=== PATIENT | female | born 1990 | race Asian ===

== ENCOUNTER 2019-03-19 03:38 | Inpatient (IN) | payer MEDICAID ==
[~2019-03-19] VITALS: Ht 162.6 cm; Wt 47.6 kg
[2019-03-19 03:40] VITALS: BP 136/89
--- NOTE | 2019-03-19 03:40 | NUR ---
ED Nurse Note: Pt brought to ED from home, c/o sudden irretractabe vommiting and nausea since 299. Pt is A&Ox4, sweating profusely, shivering and vommiting.
[2019-03-19] MEDS ORDERED: PROZAC40 MG ORAL (03:43)
[2019-03-19] MEDS ORDERED: SEROQUEL25 MG ORAL (03:43)
[2019-03-19] MEDS ORDERED: DiphenhydrAMINE 50mg/ml Inj IVP ONE (03:45)
[2019-03-19] MEDS ORDERED: Metoclopramide 10mg/2ml Inj IVP ONE (03:45)
[2019-03-19] MEDS ORDERED: Morphine Sulfate 4mg/ml Inj (IV USE ONLY) IVP ONE (03:45)
--- NOTE | 2019-03-19 03:48 | Emergency Room Report ---
History of Present Illness General Chief Complaint: Abdominal Pain Source: Patient (Umair Mckeon MD) Present Illness HPI Patient presents with 30-45 minutes of vomiting and epigastric pain. She's had this once before many years ago and was told it was food poisoning. She relates that the workup that was done was negative at that time. She's not vomiting blood at this time. There is some diarrhea. The pain is epigastric and fairly severe. The patient is being treated for anxiety depression. She's had loose stools. No melena or blood. Pain is 10/10, burning and epigastric. Nausea is overwhelming and causes anxiety and tingling in hands and feet. No chest pain, dyspnea, sore throat, joint pain, headache, rashes. She doesn't believe she is . (Umair Mckeon MD) Allergies: Coded Allergies: No Known Allergies (Unverified , 03/19/19) Patient History Past Medical History: see triage record Social History: Denies: smoking - former, alcohol use, drug use Social History Narrative with friend Last Menstrual Period: 02-15-2019 Now: No Reviewed Nursing Documentation: PMH: Agreed; PSxH: Agreed (Umair Mckeon MD) Nursing Documentation-PMH History Of Psychiatric Problem: Yes - ANXIETY AND DEPRESSION (Umair Mckeon MD) Review of Systems All Other Systems: negative except mentioned in HPI (Umair Mckeon MD) Physical Exam Vital Signs Date Time Temp Pulse Resp B/P (MAP) Pulse Ox O2 Delivery O2 Flow Rate FiO2 03/19/19 03:37 98.1 86 18 98 Room Air Sp02 EP Interpretation: reviewed, normal General Appearance: alert, GCS 15, moderate distress Eyes: bilateral eye normal inspection, bilateral eye PERRL, bilateral eye EOMI ENT: moist mucus membranes - retching Respiratory: lungs clear, normal breath sounds Cardiovascular #1: tachycardia Cardiovascular #2: 2+ radial (R) Gastrointestinal: no guarding, no rebound, tenderness - epigastric, decreased bowel sounds Genitourinary: no CVA tenderness Neurologic: alert, oriented x3, grossly normal Psychiatric: anxious Skin: no rash, other - sallo (Umair Mckeon MD) Medical Decision Making Diagnostic Impression: Primary Impression: Vomiting Qualified Codes: R11.2 - Nausea with vomiting, unspecified Additional Impressions: Epigastric pain Intractable vomiting Qualified Codes: R11.2 - Nausea with vomiting, unspecified Leukocytosis Qualified Codes: D72.828 - Other elevated white blood cell count Gastroenteritis ER Course Patient suffering from acute onset of epigastric pain and uncontrollable vomiting. Differential includes gastritis, cyclic vomiting, electrolyte abnormality, gastritis, peptic ulcer disease, pancreatitis, / hyperemesis amongst others. Patient will be evaluated with EKG and labs. Based on her repeated exam and imaging studies may be necessary. The patient will be treated with IV hydration, Pepcid, Reglan, Benadryl and morphine. EKG normal. Labs with leukocytosis. Lipase normal. neg. Patient improved with resolution of pain. Still with nausea. Abd soft. Await labs. Repeat Zofran. Still nausea. Repeat zofran and ativan given. Still with vomiting. Abdomen is soft. No imaging studies indicated. Admit med - intractable vomiting. (Umair Mckeon MD) ER Course Patient was initially seen by Dr. Mckeon and signed out to me for final disposition. I have also evaluated the patient. I have examined the patient. Patient has a benign abdominal exam. Patient has had history of nausea vomiting abdominal discomfort and diarrhea for the last couple of days. Patient is uncertain exactly what she might have eaten which could have caused this. Patient was treated with fluids and nausea medication in the emergency department but unfortunately continues to have diarrhea. For this reason I feel that and the persistent vomiting and abdominal pain that I feel that patient requires admission. Case was discussed with Dr. Dugan. Patient will be admitted to [facility] for further treatment. Labs Test 03/19/19 03:55 03/19/19 07:30 White Blood Count 12.8 K/UL (4.8-10.8) Red Blood Count 5.13 M/UL (4.20-5.40) Hemoglobin 15.9 G/DL (12.0-16.0) Hematocrit 47.3 % (37.0-47.0) Mean Corpuscular Volume 92 FL (80-99) Mean Corpuscular Hemoglobin 31.1 PG (27.0-31.0) Mean Corpuscular Hemoglobin Concent 33.7 G/DL (32.0-36.0) Red Cell Distribution Width 12.5 % (11.6-14.8) Platelet Count 298 K/UL (150-450) Mean Platelet Volume 7.1 FL (6.5-10.1) Neutrophils (%) (Auto) 45.7 % (45.0-75.0) Lymphocytes (%) (Auto) 42.4 % (20.0-45.0) Monocytes (%) (Auto) 9.4 % (1.0-10.0) Eosinophils (%) (Auto) 1.4 % (0.0-3.0) Basophils (%) (Auto) 1.1 % (0.0-2.0) Prothrombin Time 9.4 SEC (9.30-11.50) Prothromb Time International Ratio 0.9 (0.9-1.1) Activated Partial Thromboplast Time 22 SEC (23-33) Sodium Level 142 MMOL/L (136-145) Potassium Level 3.8 MMOL/L (3.5-5.1) Chloride Level 103 MMOL/L (98-107) Carbon Dioxide Level 25 MMOL/L (21-32) Anion Gap 14 mmol/L (5-15) Blood Urea Nitrogen 14 mg/dL (7-18) Creatinine 1.1 MG/DL (0.55-1.30) Estimat Glomerular Filtration Rate 58.7 mL/min (>60) Glucose Level 109 MG/DL (74-106) Calcium Level 9.9 MG/DL (8.5-10.1) Total Bilirubin 0.2 MG/DL (0.2-1.0) Aspartate Amino Transf (AST/SGOT) 19 U/L (15-37) Alanine Aminotransferase (ALT/SGPT) 30 U/L (12-78) Alkaline Phosphatase 50 U/L (46-116) Total Protein 7.9 G/DL (6.4-8.2) Albumin 4.1 G/DL (3.4-5.0) Globulin 3.8 g/dL Albumin/Globulin Ratio 1.1 (1.0-2.7) Lipase 208 U/L (73-393) Human Chorionic Gonadotropin, Qual Negative (NEGATIVE) Urine Color Pale yellow Urine Appearance Slightly cloudy Urine pH 8 (4.5-8.0) Urine Specific [place] 1.010 (1.005-1.035) Urine Protein Negative (NEGATIVE) Urine Glucose (UA) Negative (NEGATIVE) Urine Ketones Negative (NEGATIVE) Urine Blood 2+ (NEGATIVE) Urine Nitrite Negative (NEGATIVE) Urine Bilirubin Negative (NEGATIVE) Urine Urobilinogen Normal MG/DL (0.0-1.0) Urine Leukocyte Esterase Negative (NEGATIVE) (Paul Dhaliwal MD) EKG Diagnostic Results Rate: normal Rhythm: NSR ST Segments: no acute changes (Umair Mckeon MD) Rhythm Strip Diag. Results EP Interpretation: yes Rhythm: NSR, no PVC's, no ectopy (Umair Mckeon MD) Last Vital Signs Date Time Temp Pulse Resp B/P (MAP) Pulse Ox O2 Delivery O2 Flow Rate FiO2 03/19/19 08:55 98.2 65 16 134/79 98 Room Air Status: improved (Umair Mckeon MD) Disposition: ADMITTED INPATIENT Condition: Serious Umair Mckeon MD March 19, 2019 03:48 Paul Dhaliwal MD March 19, 2019 08:04
[2019-03-19 04:25] LABS: BASOPHILS % (AUTO) 1.1 % (0.0-2.0); EOSINOPHILS % (AUTO) 1.4 % (0.0-3.0); HEMATOCRIT 47.3 % (37.0-47.0); HEMOGLOBIN 15.9 G/DL (12.0-16.0); LYMPHOCYTES % (AUTO) 42.4 % (20.0-45.0); MEAN CORPUSCULAR VOLUME 92 FL (80-99); MONOCYTES % (AUTO) 9.4 % (1.0-10.0); NEUTROPHILS % (AUTO) 45.7 % (45.0-75.0); PLATELET COUNT 298 K/UL (150-450); RED BLOOD COUNT 5.13 M/UL (4.20-5.40); RED CELL DISTRIBUTION WIDTH 12.5 % (11.6-14.8); WHITE BLOOD COUNT 12.8 K/UL (4.8-10.8)
[2019-03-19 04:34] LABS: ANION GAP 14 mmol/L (5-15); BLOOD UREA NITROGEN 14 mg/dL (7-18); CALCIUM 9.9 MG/DL (8.5-10.1); CARBON DIOXIDE 25 MMOL/L (21-32); CHLORIDE 103 MMOL/L (98-107); CREATININE 1.1 MG/DL (0.55-1.30); POTASSIUM 3.8 MMOL/L (3.5-5.1); SODIUM 142 MMOL/L (136-145)
[2019-03-19 04:39] LABS: ALANINE AMINOTRANSFERASE 30 U/L (12-78); ALBUMIN 4.1 G/DL (3.4-5.0); ALBUMIN/GLOBULIN RATIO 1.1 (1.0-2.7); ALKALINE PHOSPHATASE 50 U/L (46-116); ASPARTATE AMINO TRANSFERASE 19 U/L (15-37); BILIRUBIN,TOTAL 0.2 MG/DL (0.2-1.0)
[2019-03-19 04:42] LABS: INR 0.9 (0.9-1.1)
[2019-03-19] MEDS ORDERED: LORazepam Inj 2mg/ml 1ml IV ONE (05:15)
--- NOTE | 2019-03-19 06:12 | NUR ---
ED Nurse Note: Pt is sleeping, lessened sweating, shivering has resolved. Pt reports feeling less nauseous and overall better. VSS. will continue to monitor.
[2019-03-19 06:14] VITALS: BP 136/87
--- NOTE | 2019-03-19 07:30 | NUR ---
ED Nurse Note: Received pt in bed in stable condition. pt was assisted with bedpan and urinated x2 clear and yellow urine. no cardiac or pulmonary distress noted at this moment. pt aao x4 and fatigued but following comments.
--- NOTE | 2019-03-19 07:32 | NUR ---
HAND-OFF: Report given to LAWSON Martel.
[2019-03-19 07:54] LABS: APPEARANCE,URINE SLIGHTLY CLOUDY; BILIRUBIN, URINE NEGATIVE (NEGATIVE); COLOR,URINE PALE YELLOW; GLUCOSE, URINE (UA) NEGATIVE (NEGATIVE); KETONES,URINE NEGATIVE (NEGATIVE); LEUKOCYTE ESTERASE ,URINE NEGATIVE (NEGATIVE); NITRITE,URINE NEGATIVE (NEGATIVE); PH,URINE 8 (4.5-8.0); PROTEIN,URINE NEGATIVE (NEGATIVE); UROBILINOGEN,URINE NORMAL MG/DL (0.0-1.0)
[2019-03-19 08:17] VITALS: BP 128/78
--- NOTE | 2019-03-19 08:37 | NUR ---
ED Nurse Note: Called for report. no answer. will attempt again.
--- NOTE | 2019-03-19 08:42 | NUR ---
ED Nurse Note: Called for report again. no answer. will call again.
--- NOTE | 2019-03-19 08:46 | NUR ---
ED Nurse Note: Called for report. no answer.
--- NOTE | 2019-03-19 08:54 | NUR ---
ED Nurse Note: report given to LAWSON Swann.
--- NOTE | 2019-03-19 08:55 | NUR ---
ED Nurse Note: pt left unit in stable condition with 1 manufacturing technician.
[2019-03-19 09:10] VITALS: BP 144/67
--- NOTE | 2019-03-19 09:30 | NUR ---
NURSE NOTES: Patient arrived to unit at 0905. Patient is awake alert and oriented x4, patient vomited x2 and is dry heaving. Green emesis noted. Patient's sister is at the bedside. Patient reporting abdominal pain, but no other acute distress. Patient's gait is weak, states she feels weak. Fall precautions implemented. Patient oriented to room. Side rails upx3, bed low and locked, call light in reach. Will continue to monitor.
--- NOTE | 2019-03-19 10:15 | NUR ---
NURSE NOTES: Called the office of Dr. Contreras for admission orders. Per executive vice president and chief financial officer, director of environmental services doctor will be paged. Awaiting callback with orders.
--- NOTE | 2019-03-19 10:46 | NUR ---
CASE MANAGEMENT:REVIEW 28 YR OLD FEMALE BIBA FROM HOME CC; ABDOMINAL PAIN AND VOMITING SI: GASTRITIS. INTRACTABLE VOMITING 98.1 86 18 98% ON RA WBC+12.8 IS: IV REGLAN IV PEPCID IV MORPHINE 1L NS BOLUS IV BENADRYL IV ZOFRAN IV ATIVAN : to med/surg 3 east INTERQUAL CRITERIA MET
[2019-03-19] MEDS ORDERED: LORazepam Inj 2mg/ml 1ml IV PRN (11:30)
[2019-03-19] MEDS ORDERED: Morphine Sulfate 2mg/ml Inj(IV/IM USE ONLY) IVP PRN (11:30)
[2019-03-19] MEDS ORDERED: Morphine Sulfate 4mg/ml Inj (IV USE ONLY) IVP PRN (11:30)
--- NOTE | 2019-03-19 12:10 | Cardiology Report ---
APPROVED REPORT EKG Measurement Heart [id number] Normal sinus rhythm Normal ECG
--- NOTE | 2019-03-19 14:32 | History and Physical ---
History of Present Illness General Date patient seen: March 19, 2019 Time patient seen: 12:10 Reason for Hospitalization: Abdominal Pain Present Illness HPI 28 year old woman, history of depression who presented to the ED with sudden onset nausea vomiting and sharp/severe epigastric pain, nonradiating. She also reports nonbloody diarrhea. She's had this once before many years ago and was told it was food poisoning. She relates that the workup that was done was negative at that time. She denies any recent sick contacts. Nobody else in her family has similar symptoms. Travelled to [facility] one month ago. Family History: No GI disease Social History: No tobacco Allergies: Coded Allergies: No Known Allergies (Unverified , 03/19/19) Medication History Scheduled Fluoxetine Hcl* (Prozac*), 40 MG ORAL DAILY, (Reported) Quetiapine Fumarate* (Seroquel*), 25 MG ORAL DAILY, (Reported) Patient History Healthcare decision maker Resuscitation status Full Code Advanced Directive on File Review of Systems Constitutional: Denies: chills, fever Respiratory: Denies: cough Cardiovascular: Denies: chest pain Gastrointestinal: Reports: abdominal pain, diarrhea, nausea, vomiting Musculoskeletal: Denies: back pain Skin: Denies: rash Endocrine: Denies: excessive sweating Hematologic/Lymphatic: Denies: anemia Physical Exam General Appearance: no apparent distress, alert, agitated HEENT: atraumatic, anicteric Neck: normal alignment, supple Respiratory/Chest: lungs clear, normal breath sounds, no respiratory distress Cardiovascular/Chest: normal rate, regular rhythm, no gallop/murmur Abdomen: normal bowel sounds, non tender, soft, no organomegaly, no mass Extremities: non-tender, normal inspection 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, no motor/sensory deficits, alert, oriented x 3, responsive Last 24 Hour Vital Signs Date Time Temp Pulse Resp B/P (MAP) Pulse Ox O2 Delivery O2 Flow Rate FiO2 03/19/19 08:55 98.2 65 16 134/79 98 Room Air 03/19/19 08:17 77 16 Room Air 03/19/19 08:17 98.4 77 16 128/78 98 Room Air 03/19/19 06:14 98.6 68 16 136/87 98 Room Air 03/19/19 04:31 98.6 03/19/19 03:40 98.9 98 26 136/89 98 Room Air 03/19/19 03:40 68 24 Room Air 03/19/19 03:37 98.1 86 18 98 Room Air Laboratory Tests Test 03/19/19 03:55 03/19/19 07:30 White Blood Count 12.8 K/UL (4.8-10.8) H Red Blood Count 5.13 M/UL (4.20-5.40) Hemoglobin 15.9 G/DL (12.0-16.0) Hematocrit 47.3 % (37.0-47.0) H Mean Corpuscular Volume 92 FL (80-99) Mean Corpuscular Hemoglobin 31.1 PG (27.0-31.0) H Mean Corpuscular Hemoglobin Concent 33.7 G/DL (32.0-36.0) Red Cell Distribution Width 12.5 % (11.6-14.8) Platelet Count 298 K/UL (150-450) Mean Platelet Volume 7.1 FL (6.5-10.1) Neutrophils (%) (Auto) 45.7 % (45.0-75.0) Lymphocytes (%) (Auto) 42.4 % (20.0-45.0) Monocytes (%) (Auto) 9.4 % (1.0-10.0) Eosinophils (%) (Auto) 1.4 % (0.0-3.0) Basophils (%) (Auto) 1.1 % (0.0-2.0) Prothrombin Time 9.4 SEC (9.30-11.50) Prothromb Time International Ratio 0.9 (0.9-1.1) Activated Partial Thromboplast Time 22 SEC (23-33) L Sodium Level 142 MMOL/L (136-145) Potassium Level 3.8 MMOL/L (3.5-5.1) Chloride Level 103 MMOL/L (98-107) Carbon Dioxide Level 25 MMOL/L (21-32) Anion Gap 14 mmol/L (5-15) Blood Urea Nitrogen 14 mg/dL (7-18) Creatinine 1.1 MG/DL (0.55-1.30) Estimat Glomerular Filtration Rate 58.7 mL/min (>60) Glucose Level 109 MG/DL (74-106) H Calcium Level 9.9 MG/DL (8.5-10.1) Total Bilirubin 0.2 MG/DL (0.2-1.0) Aspartate Amino Transf (AST/SGOT) 19 U/L (15-37) Alanine Aminotransferase (ALT/SGPT) 30 U/L (12-78) Alkaline Phosphatase 50 U/L (46-116) Total Protein 7.9 G/DL (6.4-8.2) Albumin 4.1 G/DL (3.4-5.0) Globulin 3.8 g/dL Albumin/Globulin Ratio 1.1 (1.0-2.7) Lipase 208 U/L (73-393) Human Chorionic Gonadotropin, Qual Negative (NEGATIVE) Urine Color Pale yellow Urine Appearance Slightly cloudy Urine pH 8 (4.5-8.0) Urine Specific [place] 1.010 (1.005-1.035) Urine Protein Negative (NEGATIVE) Urine Glucose (UA) Negative (NEGATIVE) Urine Ketones Negative (NEGATIVE) Urine Blood 2+ (NEGATIVE) H Urine Nitrite Negative (NEGATIVE) Urine Bilirubin Negative (NEGATIVE) Urine Urobilinogen Normal MG/DL (0.0-1.0) Urine Leukocyte Esterase Negative (NEGATIVE) Urine RBC 2-4 /HPF (0 - 2) H Urine WBC 0 /HPF (0 - 2) Urine Squamous Epithelial Cells Occasional /LPF Urine Bacteria Few /HPF (NONE) Height (Feet): 5 Height (Inches): 4.00 Weight (Pounds): 105 Medications Current Medications Medications (Trade) Dose Ordered Sig/Memo Route PRN Reason Start Time Stop Time Status Last Admin Dose Admin Acetaminophen (Tylenol) 650 mg Q4H PRN ORAL Mild Pain (Pain Scale 1-3) 03/19/19 11:30 04/18/19 11:29 Dextrose (Dextrose 50%) 25 ml Q30M PRN IV Hypoglycemia 03/19/19 11:30 04/18/19 11:29 Dextrose (Dextrose 50%) 50 ml Q30M PRN IV Hypoglycemia 03/19/19 11:30 04/18/19 11:29 Diphenhydramine HCl (Benadryl) 25 mg Q6H PRN ORAL Itching/Pruritis 03/19/19 11:30 04/18/19 11:29 Famotidine (Pepcid I.v.) 20 mg Q12HR IVP 03/19/19 13:00 04/18/19 12:59 03/19/19 14:20 Heparin Sodium (Porcine) (Heparin 5000 units/ml) 5,000 units EVERY 12 HOURS SUBQ 03/19/19 21:00 04/18/19 20:59 Lorazepam (Ativan 2mg/ml 1ml) 0.5 mg Q4H PRN IV For Anxiety 03/19/19 11:30 03/26/19 11:29 Morphine Sulfate (Morphine Sulfate) 2 mg Q4H PRN IVP Moderate Pain (Pain Scale 4-6) 03/19/19 11:30 03/26/19 11:29 Morphine Sulfate (Morphine Sulfate) 4 mg Q4H PRN IVP Severe Pain (Pain Scale 7-10) 03/19/19 11:30 03/26/19 11:29 Prochlorperazine (Compazine) 10 mg Q6H PRN IVP Nausea & Vomiting 03/19/19 11:30 04/18/19 11:29 03/19/19 12:28 Sodium Chloride 1,000 ml @ 100 mls/hr Q10H IV 03/19/19 10:45 04/18/19 10:44 03/19/19 12:28 Assessment/Plan Assessment/Plan: #Intractable nausea and vomiting + diarrhea #Acute gastroenteritis -admit to medical service -Supportive care -IV fluids, Zofran, morphine -if persistent symptoms can check stool studies #History of depression -continue home psychiatric Dylon Wallace MD March 19, 2019 14:32
[2019-03-19 16:00] VITALS: BP 120/71
--- NOTE | 2019-03-19 19:30 | NUR ---
NURSE NOTES: Report taken from LAWSON Avalos. Patient is awake in bed, A&Ox4, family at bedside. No signs of distress on room air. Stated that she is feeling light-headed, RN explained that specific medications she is taking may have that side effect, continue to monitor. She has some emesis at bedside, comprised of mostly bile. Minor complaint of pain 11/30. Skin intact. IV site c/d/i and patent running NS @ 100mls/hr. Bed in lowest position, call light within reach.
[2019-03-19 20:00] VITALS: BP 109/61
[2019-03-19] MEDS: Heparin 5000 units/ml inj SUBQ SCH (20:44)
--- NOTE | 2019-03-19 21:37 | Consultation ---
History of Present Illness General Date patient seen: March 19, 2019 Chief Complaint: AMS Referring physician: Dr. Contreras Present Illness HPI Dany Ferguson is a 28 year old woman with a PMH of depression who presented to the ED with sudden onset nausea vomiting and sharp/severe epigastric pain, nonradiating, nonbloody diarrhea. She states that her symptoms feel reminiscent of previous self resolving episodes secondary to food poisoining. At the time that Ms. Ferguson was transferred from ED to unit for her hospital admission - she was lethargic and reported dizziness with some mild disorientation. She is now being evaluated by neurology for her recent symptoms. Allergies: Coded Allergies: No Known Allergies (Unverified , 03/19/19) Medication History Scheduled Fluoxetine Hcl* (Prozac*), 40 MG ORAL DAILY, (Reported) Quetiapine Fumarate* (Seroquel*), 25 MG ORAL DAILY, (Reported) Patient History History Provided By: Patient, Family Member, Medical Record Healthcare decision maker Resuscitation status Full Code Advanced Directive on File Social History Social History: (1) Recent history of foreign travel Review of Systems Constitutional: Reports: malaise, weakness; Denies: no symptoms, see HPI, chills, sweats, fever, other Eye: Denies: no symptoms, see HPI, eye pain, blurred vision, tearing, double vision, nose pain, nose congestion, acuity changes, discharge, other ENT: Denies: no symptoms, see HPI, ear pain, ear discharge, nose pain, nose congestion, throat pain, throat swelling, mouth pain, hearing loss, nasal discharge, other Respiratory: Denies: no symptoms, see HPI, cough, orthopnea, shortness of breath, stridor, wheezing, LYON, sputum, other Cardiovascular: Denies: no symptoms, see HPI, chest pain, edema, palpitations, syncope, PND, other Gastrointestinal: Reports: abdominal pain, nausea Genitourinary: Denies: no symptoms, see HPI, discharge, dysuria, frequency, hematuria, pain, retention, incontinence, urgency, vag bleed/dc, other Musculoskeletal: Denies: no symptoms, see HPI, back pain, gout, joint pain, joint swelling, muscle pain, muscle stiffness, other Skin: Denies: no symptoms, see HPI, rash, change in color, change in hair/nails , dryness, lesions, other Psychiatric: Denies: no symptoms, see HPI, prior hx, anxiety, depressed feelings, emotional problems, SI, HI, hallucinations, other Neurological: Denies: no symptoms, see HPI, headache, numbness, paresthesia, seizure, tingling, tremors, focal weakness, syncope, dizziness, other Endocrine: Denies: no symptoms, see HPI, excessive sweating, flushing, intolerance to temperature, increased thirst, increased urine, unexplained weight loss, other Hematologic/Lymphatic: Denies: no symptoms, see HPI, anemia, blood clots, easy bleeding, easy bruising, swollen glands, diathesis, other Physical Exam General Appearance: WD/WN, no apparent distress, alert Lines, tubes and drains: peripheral HEENT: normocephalic, atraumatic, anicteric, mucous membranes moist, PERRL, EOMI, pharynx normal, supple, no JVD Neck: normal alignment, supple, normal inspection Respiratory/Chest: no respiratory distress, no accessory muscle use Cardiovascular/Chest: normal peripheral pulses, normal rate, regular rhythm Extremities: normal range of motion, non-tender, normal inspection, no calf tenderness, normal capillary refill, non-pitting, no edema, no cyanosis Skin Exam: normal pigmentation, warm/dry 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, no motor/sensory deficits, alert, oriented x 3, responsive, normal mood/affect, no Babinski Musculoskeletal: normal muscle bulk, no effusion Last 24 Hour Vital Signs Date Time Temp Pulse Resp B/P (MAP) Pulse Ox O2 Delivery O2 Flow Rate FiO2 03/19/19 16:00 100.2 79 18 120/71 (87) 95 03/19/19 09:10 Room Air 03/19/19 09:10 97.8 63 18 144/67 (92) 98 03/19/19 08:55 98.2 65 16 134/79 98 Room Air 03/19/19 08:17 77 16 Room Air 03/19/19 08:17 98.4 77 16 128/78 98 Room Air 03/19/19 06:14 98.6 68 16 136/87 98 Room Air 03/19/19 04:31 98.6 03/19/19 03:40 98.9 98 26 136/89 98 Room Air 03/19/19 03:40 68 24 Room Air 03/19/19 03:37 98.1 86 18 98 Room Air Laboratory Tests Test 03/19/19 03:55 03/19/19 07:30 White Blood Count 12.8 K/UL (4.8-10.8) H Red Blood Count 5.13 M/UL (4.20-5.40) Hemoglobin 15.9 G/DL (12.0-16.0) Hematocrit 47.3 % (37.0-47.0) H Mean Corpuscular Volume 92 FL (80-99) Mean Corpuscular Hemoglobin 31.1 PG (27.0-31.0) H Mean Corpuscular Hemoglobin Concent 33.7 G/DL (32.0-36.0) Red Cell Distribution Width 12.5 % (11.6-14.8) Platelet Count 298 K/UL (150-450) Mean Platelet Volume 7.1 FL (6.5-10.1) Neutrophils (%) (Auto) 45.7 % (45.0-75.0) Lymphocytes (%) (Auto) 42.4 % (20.0-45.0) Monocytes (%) (Auto) 9.4 % (1.0-10.0) Eosinophils (%) (Auto) 1.4 % (0.0-3.0) Basophils (%) (Auto) 1.1 % (0.0-2.0) Prothrombin Time 9.4 SEC (9.30-11.50) Prothromb Time International Ratio 0.9 (0.9-1.1) Activated Partial Thromboplast Time 22 SEC (23-33) L Sodium Level 142 MMOL/L (136-145) Potassium Level 3.8 MMOL/L (3.5-5.1) Chloride Level 103 MMOL/L (98-107) Carbon Dioxide Level 25 MMOL/L (21-32) Anion Gap 14 mmol/L (5-15) Blood Urea Nitrogen 14 mg/dL (7-18) Creatinine 1.1 MG/DL (0.55-1.30) Estimat Glomerular Filtration Rate 58.7 mL/min (>60) Glucose Level 109 MG/DL (74-106) H Calcium Level 9.9 MG/DL (8.5-10.1) Total Bilirubin 0.2 MG/DL (0.2-1.0) Aspartate Amino Transf (AST/SGOT) 19 U/L (15-37) Alanine Aminotransferase (ALT/SGPT) 30 U/L (12-78) Alkaline Phosphatase 50 U/L (46-116) Total Protein 7.9 G/DL (6.4-8.2) Albumin 4.1 G/DL (3.4-5.0) Globulin 3.8 g/dL Albumin/Globulin Ratio 1.1 (1.0-2.7) Lipase 208 U/L (73-393) Human Chorionic Gonadotropin, Qual Negative (NEGATIVE) Urine Color Pale yellow Urine Appearance Slightly cloudy Urine pH 8 (4.5-8.0) Urine Specific [place] 1.010 (1.005-1.035) Urine Protein Negative (NEGATIVE) Urine Glucose (UA) Negative (NEGATIVE) Urine Ketones Negative (NEGATIVE) Urine Blood 2+ (NEGATIVE) H Urine Nitrite Negative (NEGATIVE) Urine Bilirubin Negative (NEGATIVE) Urine Urobilinogen Normal MG/DL (0.0-1.0) Urine Leukocyte Esterase Negative (NEGATIVE) Urine RBC 2-4 /HPF (0 - 2) H Urine WBC 0 /HPF (0 - 2) Urine Squamous Epithelial Cells Occasional /LPF Urine Bacteria Few /HPF (NONE) Height (Feet): 5 Height (Inches): 4.00 Weight (Pounds): 105 Medications Current Medications Medications (Trade) Dose Ordered Sig/Memo Route PRN Reason Start Time Stop Time Status Last Admin Dose Admin Acetaminophen (Tylenol) 650 mg Q4H PRN ORAL Mild Pain (Pain Scale 1-3) 03/19/19 11:30 04/18/19 11:29 Dextrose (Dextrose 50%) 25 ml Q30M PRN IV Hypoglycemia 03/19/19 11:30 04/18/19 11:29 Dextrose (Dextrose 50%) 50 ml Q30M PRN IV Hypoglycemia 03/19/19 11:30 04/18/19 11:29 Diphenhydramine HCl (Benadryl) 25 mg Q6H PRN ORAL Itching/Pruritis 03/19/19 11:30 04/18/19 11:29 Famotidine (Pepcid I.v.) 20 mg Q12HR IVP 03/19/19 13:00 04/18/19 12:59 03/19/19 20:42 Heparin Sodium (Porcine) (Heparin 5000 units/ml) 5,000 units EVERY 12 HOURS SUBQ 03/19/19 21:00 04/18/19 20:59 03/19/19 20:44 Lorazepam (Ativan 2mg/ml 1ml) 0.5 mg Q4H PRN IV For Anxiety 03/19/19 11:30 03/26/19 11:29 Morphine Sulfate (Morphine Sulfate) 2 mg Q4H PRN IVP Moderate Pain (Pain Scale 4-6) 03/19/19 11:30 03/26/19 11:29 Morphine Sulfate (Morphine Sulfate) 4 mg Q4H PRN IVP Severe Pain (Pain Scale 7-10) 03/19/19 11:30 03/26/19 11:29 Prochlorperazine (Compazine) 10 mg Q6H PRN IVP Nausea & Vomiting 03/19/19 11:30 04/18/19 11:29 03/19/19 12:28 Sodium Chloride 1,000 ml @ 100 mls/hr Q10H IV 03/19/19 10:45 04/18/19 10:44 03/19/19 12:28 Assessment/Plan Problem List: (1) Acute metabolic encephalopathy Assessment & Plan: Alert and oriented with resolving feeling of disorientation and dizziness. ICD Codes: G93.41 - Metabolic encephalopathy SNOMED: 20524487, 260325027 (2) Dizziness Assessment & Plan: Resolved - no signs of nystagmus, ataxia ICD Codes: R42 - Dizziness and giddiness SNOMED: 107617470, 999888832 (3) Gastritis ICD Codes: K29.70 - Gastritis, unspecified, without bleeding SNOMED: 4591487 Qualifiers: Qualified Codes: K29.00 - Acute gastritis without bleeding (4) Recent history of foreign travel ICD Codes: Z78.9 - Other specified health status SNOMED: 828457190 Status: stable Assessment/Plan: May use zofran for ongoing Nausea General Neuro obs recommended No indication for neuro imaging at this time. Continue IVH Check orthostatic BP prior to ambulation Clear for discharge from a neurological perspective. This visit was conducted with supervision of Jadon Lund MD. Mylene Daley N.P. March 19, 2019 21:37
[2019-03-20] VITALS: BP 105/64
[2019-03-20 04:00] VITALS: BP 102/67
[2019-03-20 06:26] LABS: BASOPHILS % (AUTO) 0.5 % (0.0-2.0); EOSINOPHILS % (AUTO) 0.1 % (0.0-3.0); HEMATOCRIT 38.7 % (37.0-47.0); MEAN CORPUSCULAR VOLUME 93 FL (80-99); MONOCYTES % (AUTO) 10.4 % (1.0-10.0); NEUTROPHILS % (AUTO) 75.1 % (45.0-75.0); PLATELET COUNT 197 K/UL (150-450); RED BLOOD COUNT 4.18 M/UL (4.20-5.40); RED CELL DISTRIBUTION WIDTH 12.3 % (11.6-14.8); WHITE BLOOD COUNT 13.8 K/UL (4.8-10.8)
[2019-03-20 06:47] LABS: ANION GAP 11 mmol/L (5-15); BLOOD UREA NITROGEN 11 mg/dL (7-18); CALCIUM 8.7 MG/DL (8.5-10.1); CARBON DIOXIDE 24 MMOL/L (21-32); CHLORIDE 109 MMOL/L (98-107); CREATININE 0.8 MG/DL (0.55-1.30); SODIUM 144 MMOL/L (136-145)
--- NOTE | 2019-03-20 07:30 | NUR ---
HAND-OFF: Report given to LAWSON Avalos. Patient asleep in bed, VS stable.
--- NOTE | 2019-03-20 07:30 | NUR ---
NURSE NOTES: Received report from Alexis PATHAK. Patient is asleep during rounds, no acute distress noted, RR even and unlabored. IVF running per order. Patient's mother is at the bedside. Side rails upx3, bed low and locked, call light in reach. Will continue to monitor.
[2019-03-20 08:00] VITALS: BP 103/64
[2019-03-20] MEDS: Heparin 5000 units/ml inj SUBQ SCH (09:05)
--- NOTE | 2019-03-20 09:15 | NUR ---
NURSE NOTES: Called the office of Dr. Contreras. Left message regarding potassium 3.0. Awaiting callback from retail sales consultant MD with further orders.
--- NOTE | 2019-03-20 09:26 | NUR ---
NURSE NOTES: Received callback from Dr. Dugan. Orders for potassium received and entered, MD also ordered to advance patient to clear liquid diet. Will carry out.
--- NOTE | 2019-03-20 11:29 | NUR ---
RD ASSESSMENT & RECOMMENDATIONS SEE CARE ACTIVITY FOR COMPLETE ASSESSMENT DAILY ESTIMATED NEEDS: Needs based on Underweight 47.7kg 27-32 kcals/kg 8207-3848 total kcals 1-1.2 g protein/kg 48-57 g total protein 25-30 mL/kg 0513-1926 total fluid mLs NUTRITION DIAGNOSIS: Underweight r/t stress, lifestyle factors as evidenced by BMI underweight per guidelines, pt is 88% of [place] Body Weight, pt owes wt loss to work and stress, now w/ 24% favorable wt gain. CURRENT DIET: Was NPO-> now CLD PO DIET RECOMMENDATIONS: CLD as per MD + Ensure Clear w/ meals ADDITIONAL RECOMMENDATIONS: 1) Pt on bed WITHOUT scale, obtain a standing weight as able 2) Add Ensure Clear TID w/ CLD 3) Monitor lytes daily, replete as needed (low K 3.0)
[2019-03-20 12:00] VITALS: BP 116/82
--- NOTE | 2019-03-20 12:15 | Discharge Summary ---
Discharge Summary Hospital Course Date of Admission March 19, 2019 at 07:20 Date of Discharge 03/20/19 Admitting Diagnosis Acute gastroenteritis Reason for Hospitalization: Acute gastroenteritis SILVESTRE Ferguson is a 28 year old female who was admitted on March 19, 2019 at 07:20 for Gastritis Consultations None Procedures None Hospital Course Patient admitted to the medical service with intractable nausea, vomiting, diarrhea secondary to acute viral gastroenteritis. Treated supportively with IV fluids, anti-emetics and Pepcid with improvement in symptoms. She is tolerating diet and will be discharged home in stable condition She will need to follow up with her PCP routinely. Discharge Medications Continued Medications: Fluoxetine Hcl* (Prozac*) 40 Mg Capsule 40 MG ORAL DAILY, CAP Quetiapine Fumarate* (Seroquel*) 25 Mg Tablet 25 MG ORAL DAILY, TAB Discharge Condition Upon Discharge: stable Discharge Disposition Patient was discharged to Home Discharge Diagnoses: (1) Gastroenteritis Dylon Hughes MD March 20, 2019 12:15
--- NOTE | 2019-03-20 14:06 | NUR ---
NURSE NOTES: Patient reported she has had 5 episodes of diarrhea since this morning. Informed Dr. Dugan. stated ok for patient to be discharged as long as she is tolerating diet well, no need to collect for C. Diff. Patient is tolerating diet well, ate 100% of lunch and reports no nausea or vomiting.
--- NOTE | 2019-03-20 15:25 | NUR ---
NURSE NOTES: Patient discharged. No acute distress on discharge. Patient provided with discharge education, discharge handouts reviewed with patient and patient reports understanding of provided education. IV removed intact. Patient tolerated food well, no episodes of nausea or vomiting today. Patient escorted off unit by RN with patient's sister to private vehicle in stable condition.
== END 2019-03-20 15:21 | disposition home or self-care (01) | DRG 249 ==
LOC: EDBD 03:38 → EMR 04:58 → 3E 07:20 → EDBEDREQ 08:32
DX: A08.39 Other viral enteritis (principal); G93.41 Metabolic encephalopathy; D72.829 Elevated white blood cell count, unspecified
CPT/HCPCS: 36415; 80048; 80053; 81003; 83690; 84703; 85025; 85610; 85730; 93005; 96361; 96372; 96374; 96375; 96376; 99285; J2405; J2765; J8499

== ENCOUNTER 2019-05-17 02:46 | Inpatient (IN) | payer MEDICAID ==
[~2019-05-17] VITALS: Ht 167.6 cm; Wt 59.0 kg
[2019-05-17] VITALS (8 sets, daily range): BP systolic 112–148; BP diastolic 60–100
[~2019-05-17 02:46] MED LIST: PROZAC40 MG ORAL; SEROQUEL25 MG ORAL
--- NOTE | 2019-05-17 02:54 | Emergency Room Report ---
History of Present Illness General Chief Complaint: vomiting Source: Patient, Medical Record (Fabien Shearer MD) Present Illness HPI 28-year-old female with history of anxiety. She presents with chief complaint of abdominal pain with severe nausea and vomiting. No diarrhea. Onset was about 3 hours ago after she finished eating Mohr's. She has similar symptoms a couple months ago and was admitted here for intractable vomiting. She has previous problem with this couple years ago and was also admitted. Work-up was unremarkable. She does smoke marijuana. Pain is sharp and crampy. Severe nausea. Vomiting is now just retching. Nonbloody nonbilious before. No diarrhea. No fever. (Fabien Shearer MD) Allergies: Coded Allergies: No Known Allergies (Unverified , 03/19/19) Patient History Past Medical History: see triage record, old chart reviewed, psych hx Past Surgical History: none Pertinent Family History: none Social History: Reports: drug use - Marijuana; Denies: smoking Now: No Immunizations: other Reviewed Nursing Documentation: PMH: Agreed; PSxH: Agreed (Fabien Shearer MD) Nursing Documentation-PMH Hx Cardiac Problems: No Hx Cancer: No Hx Gastrointestinal Problems: Yes Hx Neurological Problems: No (Fabien Shearer MD) Review of Systems Eye: Denies: eye pain, blurred vision ENT: Denies: ear pain, nose congestion, throat swelling Respiratory: Denies: cough, shortness of breath Cardiovascular: Denies: chest pain, palpitations Gastrointestinal: Reports: abdominal pain, nausea, vomiting; Denies: diarrhea Musculoskeletal: Denies: back pain, joint pain Skin: Denies: rash Neurological: Denies: headache, numbness Endocrine: Denies: increased thirst, increased urine Hematologic/Lymphatic: Denies: easy bruising All Other Systems: negative except mentioned in HPI (Fabien Shearer MD) Physical Exam Vitals unremarkable Sp02 EP Interpretation: reviewed, normal General Appearance: well appearing, no apparent distress, alert Head: normocephalic, atraumatic Eyes: bilateral eye PERRL, bilateral eye EOMI ENT: hearing grossly normal, normal pharynx Neck: full range of motion, supple, no meningismus Respiratory: chest non-tender, lungs clear, normal breath sounds Cardiovascular #1: regular rate, rhythm, no murmur Gastrointestinal: no mass, no organomegaly, no bruit, non-distended, tenderness - diffuse, decreased bowel sounds Musculoskeletal: back normal, gait/station normal, normal range of motion Neurologic: alert, oriented x3 Psychiatric: anxious (Fabien Shearer MD) Medical Decision Making Diagnostic Impression: Primary Impression: Intractable vomiting with nausea Qualified Codes: R11.2 - Nausea with vomiting, unspecified Additional Impressions: Leukocytosis Qualified Codes: D72.829 - Elevated white blood cell count, unspecified Anxiety ER Course Patient with intractable vomiting. Also very anxious. She is much better now. Sleeping comfortably. Urinalysis still pending. We will repeat CBC. Her leukocytosis probably a stress response from vomiting. No evidence of any infection. Lab Results Impression LAbs with leukocytosis (Fabien Shearer MD) ER Course Patient endorsed me by Dr. Shearer. Patient was noted to have multiple episodes of emesis. Patient initially was improved after medications. She had subsequent recurrence of nausea and emesis. Patient started on IV fluids and giving further antiemetics. Patient will be admitted due to dehydration and leukocytosis. Urinalysis showed no evidence of urinary infection. Patient was noted to have elevated white blood count with left shift. Patient was noted to have persistent vomiting. Patient was discussed with Dr. Kristel Flores and will be admitted for further evaluation and treatment. Labs Test 05/17/19 03:00 05/17/19 06:30 05/17/19 07:40 Sodium Level 139 MMOL/L (136-145) Potassium Level 3.5 MMOL/L (3.5-5.1) Chloride Level 101 MMOL/L (98-107) Carbon Dioxide Level 24 MMOL/L (21-32) Anion Gap 15 mmol/L (5-15) Blood Urea Nitrogen 12 mg/dL (7-18) Creatinine 1.1 MG/DL (0.55-1.30) Estimat Glomerular Filtration Rate 58.7 mL/min (>60) Glucose Level 155 MG/DL (74-106) Calcium Level 10.1 MG/DL (8.5-10.1) Total Bilirubin 0.3 MG/DL (0.2-1.0) Aspartate Amino Transf (AST/SGOT) 36 U/L (15-37) Alanine Aminotransferase (ALT/SGPT) 36 U/L (12-78) Alkaline Phosphatase 61 U/L (46-116) Total Protein 8.6 G/DL (6.4-8.2) Albumin 5.0 G/DL (3.4-5.0) Globulin 3.6 g/dL Albumin/Globulin Ratio 1.4 (1.0-2.7) Lipase 157 U/L (73-393) White Blood Count 19.1 K/UL (4.8-10.8) Red Blood Count 4.28 M/UL (4.20-5.40) Hemoglobin 13.5 G/DL (12.0-16.0) Hematocrit 39.9 % (37.0-47.0) Mean Corpuscular Volume 93 FL (80-99) Mean Corpuscular Hemoglobin 31.5 PG (27.0-31.0) Mean Corpuscular Hemoglobin Concent 33.8 G/DL (32.0-36.0) Red Cell Distribution Width 11.6 % (11.6-14.8) Platelet Count 199 K/UL (150-450) Mean Platelet Volume 6.7 FL (6.5-10.1) Neutrophils (%) (Auto) % (45.0-75.0) Lymphocytes (%) (Auto) % (20.0-45.0) Monocytes (%) (Auto) % (1.0-10.0) Eosinophils (%) (Auto) % (0.0-3.0) Basophils (%) (Auto) % (0.0-2.0) Differential Total Cells Counted 100 Neutrophils % (Manual) 91 % (45-75) Lymphocytes % (Manual) 5 % (20-45) Monocytes % (Manual) 3 % (1-10) Eosinophils % (Manual) 0 % (0-3) Basophils % (Manual) 0 % (0-2) Band Neutrophils 1 % (0-8) Platelet Estimate Adequate Platelet Morphology Normal Red Blood Cell Morphology Normal Urine Color Pale yellow Urine Appearance Clear Urine pH 8 (4.5-8.0) Urine Specific [place] 1.010 (1.005-1.035) Urine Protein Negative (NEGATIVE) Urine Glucose (UA) Negative (NEGATIVE) Urine Ketones 2+ (NEGATIVE) Urine Blood Negative (NEGATIVE) Urine Nitrite Negative (NEGATIVE) Urine Bilirubin Negative (NEGATIVE) Urine Urobilinogen Normal MG/DL (0.0-1.0) Urine Leukocyte Esterase Negative (NEGATIVE) Urine HCG, Qualitative Negative (NEGATIVE) (Gonzalo Han MD) Status: improved (Fabien Shearer MD) Status: unchanged (Gonzalo Han MD) Disposition: ADMITTED INPATIENT Condition: Stable Scripts Ondansetron (Zofran) 4 Mg Tablet 4 MG ORAL Q6H PRN for Nausea & Vomiting, #10 TAB 0 Refills Prov: Fabien Shearer MD 05/17/19 Additional Instructions: Advance diet as tolerated. Follow-up with your doctor in 2 to 3 days. Return if worse. Fabien Shearer MD May 17, 2019 02:54 Gonzalo Han MD May 17, 2019 09:47
[2019-05-17] MEDS ORDERED: LORazepam Inj 2mg/ml 1ml IV ONE (03:00)
--- NOTE | 2019-05-17 03:00 | NUR ---
ED Nurse Note: Pt from home c/o n/v suddenly after eating [employer]. Pt diaphoretic, shaking, n/v. A&Ox4
[2019-05-17 03:23] LABS: HEMATOCRIT 48.1 % (37.0-47.0); MEAN CORPUSCULAR VOLUME 92 FL (80-99); PLATELET COUNT 262 K/UL (150-450); RED BLOOD COUNT 5.22 M/UL (4.20-5.40); RED CELL DISTRIBUTION WIDTH 11.2 % (11.6-14.8)
[2019-05-17 03:28] LABS: ANION GAP 15 mmol/L (5-15); BLOOD UREA NITROGEN 12 mg/dL (7-18); CALCIUM 10.1 MG/DL (8.5-10.1); CARBON DIOXIDE 24 MMOL/L (21-32); CHLORIDE 101 MMOL/L (98-107); CREATININE 1.1 MG/DL (0.55-1.30); POTASSIUM 3.5 MMOL/L (3.5-5.1); SODIUM 139 MMOL/L (136-145)
[2019-05-17 03:32] LABS: ALANINE AMINOTRANSFERASE 36 U/L (12-78); ALBUMIN/GLOBULIN RATIO 1.4 (1.0-2.7); ALKALINE PHOSPHATASE 61 U/L (46-116); ASPARTATE AMINO TRANSFERASE 36 U/L (15-37); BILIRUBIN,TOTAL 0.3 MG/DL (0.2-1.0)
[2019-05-17] MEDS ORDERED: Promethazine HCl 50 MG in NS 110 ML IVPB ONE (04:00)
[2019-05-17] MEDS ORDERED: Haloperidol Lactate 5 MG in D5W 55 ML IVPB ONE (04:00)
--- NOTE | 2019-05-17 05:00 | NUR ---
ED Nurse Note: Pt resting in bed with eyes closed, non-labored breathing. Pt intermittently wakes up to vommit clear liquid, at times just dry heaving. Pt quickly falls back asleep, doesn't want to open eyes or answer questions. Will continue to monitor, IV fluids infusing per order.
[2019-05-17] MEDS ORDERED: ZOFRAN4 MG ORAL (06:05)
[2019-05-17 07:02] LABS: HEMATOCRIT 39.9 % (37.0-47.0); HEMOGLOBIN 13.5 G/DL (12.0-16.0); MEAN CORPUSCULAR VOLUME 93 FL (80-99); PLATELET COUNT 199 K/UL (150-450); RED BLOOD COUNT 4.28 M/UL (4.20-5.40); RED CELL DISTRIBUTION WIDTH 11.6 % (11.6-14.8); WHITE BLOOD COUNT 19.1 K/UL (4.8-10.8)
--- NOTE | 2019-05-17 07:15 | NUR ---
HAND-OFF: Report given to LAWSON Torres.
--- NOTE | 2019-05-17 07:20 | NUR ---
ED Nurse Note: pt sleeping on gurney, with respiration equal and unlabored, pt vss. pt vomited many times earlier, no episode as of now. per pt mom, pt started vomiting after eating midnight. will continue to monitor.
[2019-05-17 07:53] LABS: APPEARANCE,URINE CLEAR; BILIRUBIN, URINE NEGATIVE (NEGATIVE); COLOR,URINE PALE YELLOW; GLUCOSE, URINE (UA) NEGATIVE (NEGATIVE); KETONES,URINE 2+ (NEGATIVE); LEUKOCYTE ESTERASE ,URINE NEGATIVE (NEGATIVE); NITRITE,URINE NEGATIVE (NEGATIVE); PH,URINE 8 (4.5-8.0); PROTEIN,URINE NEGATIVE (NEGATIVE); UROBILINOGEN,URINE NORMAL MG/DL (0.0-1.0)
--- NOTE | 2019-05-17 08:30 | NUR ---
ED Nurse Note: pt asleep on bed with vs stable. no complaint at the moment.
[2019-05-17] MEDS ORDERED: D5 1/2NS w/KCl 20mEq 1,000 ML IV SCH (09:00)
--- NOTE | 2019-05-17 09:55 | NUR ---
ED Nurse Note: pt vomitted, ermd made aware and ordered zofran iv and carried out. pt tolerated well. pt mother on bedside. will continue to monitor.
--- NOTE | 2019-05-17 10:00 | NUR ---
ED Nurse Note: pt and pt mother made aware of the possible hospital admission and verbalized understanding. will continue to monitor.
--- NOTE | 2019-05-17 10:24 | NUR ---
ED Nurse Note: nanoscience technician on bedside
[2019-05-17] MEDS ORDERED: NKM (10:30)
--- NOTE | 2019-05-17 10:40 | NUR ---
ED Nurse Note: report given to Armand PATHAK. technical associate is still on bed. will continue to monitor.
[2019-05-17] MEDS ORDERED: Morphine Sulfate 2mg/ml Inj(IV/IM USE ONLY) IVP PRN (11:00)
--- NOTE | 2019-05-17 11:25 | NUR ---
ED Nurse Note: pt was transfered to med surg room with stable vs and all belongings endorsed to rose brito.
--- NOTE | 2019-05-17 11:30 | NUR ---
NURSE NOTES: Patient came to unit by jacek. Alert and oriented x4. No complain of pain or distress at this time. Skin intact and dry. IV dressing intact and dry. Family member at bedside. Belonging checked. Bed lowest position. Call light within reach. Will continue to monitor.
--- NOTE | 2019-05-17 12:13 | Diagnostic Imaging Report ---
EXAM: US Abdomen Complete CLINICAL HISTORY: ABD PAIN TECHNIQUE: Real-time ultrasound of the abdomen (complete) with image documentation. COMPARISON: No relevant prior studies available. FINDINGS: Liver: Incidental note of a 1.2 x 0.7 cm echogenic lesion in the right hepatic lobe. Liver diameter of 14.3 cm. No intrahepatic biliary ductal dilatation. Gallbladder: Unremarkable. No gallstones. No wall thickening. No pericholecystic fluid. Common bile duct: Common bile duct diameter of 6 m, within normal limits. No stones. No dilation. Pancreas: Unremarkable as visualized. Pancreatic body and tail are obscured by bowel gas. Kidneys: Right kidney length of 10.75 cm. Left kidney length of 10.92 cm. Normal cortical thickness. No visible parenchymal lesions. No visible stones. No hydronephrosis. Spleen: Spleen diameter of 9.45 cm, within normal limits. Aorta: Visualized portions of the aorta appear unremarkable. Inferior vena cava: Visualized portions of the IVC appear unremarkable. IMPRESSION: 1. No acute findings. 2. Incidental note of a 1.2 x 0.7 cm echogenic lesion in the right hepatic lobe. This remains indeterminate but likely represents a hemangioma. If there is continued clinical concern, further evaluation with dynamic contrast-enhanced CT or MRI may be considered.
--- NOTE | 2019-05-17 12:20 | NUR ---
NURSE NOTES: Spoke to regarding patient and new order received. Order read back and carried out.
--- NOTE | 2019-05-17 13:20 | Consultation ---
History of Present Illness General Date patient seen: May 17, 2019 Reason for Hospitalization: Nausea, Vomiting, and Diarrhea Present Illness HPI This is a 28-year-old female who presented to [facility] emergency department complaining of abdominal discomfort, nausea, emesis, diarrhea. Patient states she was doing okay yesterday and believes that she had Mohr' s late in the evening and since has been feeling unwell. States last diarrhea was approximately an hour ago and no blood noted in her stool. Last emesis was not long ago and nonbloody. States abdominal discomfort has resolved. Had an ultrasound emergency department as below. Significant leukocytosis. Low-grade fevers. Surgery called to evaluate and assist with care. Patient seen, patient evaluate, chart reviewed. Allergies: Coded Allergies: No Known Allergies (Unverified , 03/19/19) Medication History Scheduled Fluoxetine Hcl* (Prozac*), 40 MG ORAL DAILY, (Reported) No Known Medications* (NKM - No Known Medications*), 0 ., (Reported) Quetiapine Fumarate* (Seroquel*), 25 MG ORAL DAILY, (Reported) Scheduled PRN Ondansetron (Zofran), 4 MG ORAL Q6H PRN for Nausea & Vomiting Patient History History Provided By: Patient, Family Member, Medical Record Healthcare decision maker Resuscitation status Advanced Directive on File Past Medical/Surgical History Past Medical/Surgical History: (1) Dizziness (2) Acute metabolic encephalopathy (3) Gastritis (4) Leukocytosis (5) Intractable vomiting with nausea (6) Anxiety Review of Systems Review of Symptoms General ROS: no weight loss or fever Psychological ROS: no depression or mood changes, no memory loss Ophthalmic ROS: no visual changes or eye irritation ENT ROS: no nasal congestion, hearing loss, dizziness Allergy and Immunology ROS: no allergic symptoms or urticaria Hematological and Lymphatic ROS: no swollen glands, unusual bleeding or bruising Endocrine ROS: no polyuria, polydipsia, weight changes, temperature intolerance Respiratory ROS: no cough, shortness of breath, or wheezing Cardiovascular ROS: no chest pain or dyspnea on exertion Gastrointestinal ROS: denies abdominal pain, no bright red blood in stool. Musculoskeletal ROS: no myalgias or arthralgias Neurological ROS: no TIA or stroke symptoms Dermatological ROS: no new or changing skin lesions, rashes or pruritis Physical Exam Physical Exam General appearance: alert, cooperative, no distress, appears stated age Head: Normocephalic, without obvious abnormality, atraumatic Eyes: conjunctivae/corneas clear. PERRL, EOM's intact. Fundi benign Throat: Lips, mucosa, and tongue normal. Teeth and gums normal Neck: supple, symmetrical, trachea midline, no adenopathy, thyroid: not enlarged, symmetric, no tenderness/mass/nodules, no carotid bruit and no JVD Lungs: clear to auscultation bilaterally Heart: regular rate and rhythm, S1, S2 normal, no murmur, click, rub or gallop Abdomen: soft, non-tender. Bowel sounds normal. No masses, no organomegaly Extremities: extremities normal, atraumatic, no cyanosis or edema Pulses: 2+ and symmetric Skin: Skin color, texture, turgor normal. No rashes or lesions Neurologic: Grossly normal Last 24 Hour Vital Signs Date Time Temp Pulse Resp B/P (MAP) Pulse Ox O2 Delivery O2 Flow Rate FiO2 05/17/19 12:00 98.8 70 20 148/96 (113) 100 05/17/19 11:25 99.5 22 22 112/75 100 Room Air 05/17/19 10:06 99.5 22 22 112/75 100 Room Air 05/17/19 09:03 82 22 118/82 97 Room Air 05/17/19 07:20 77 24 133/60 100 Room Air 05/17/19 03:00 97.3 105 20 131/100 98 Room Air 05/17/19 02:55 97.3 86 20 131/100 (110) 98 Room Air Laboratory Tests Test 05/17/19 03:00 05/17/19 06:30 05/17/19 07:40 White Blood Count 21.0 K/UL (4.8-10.8) H 19.1 K/UL (4.8-10.8) H Red Blood Count 5.22 M/UL (4.20-5.40) 4.28 M/UL (4.20-5.40) Hemoglobin 16.0 G/DL (12.0-16.0) 13.5 G/DL (12.0-16.0) Hematocrit 48.1 % (37.0-47.0) H 39.9 % (37.0-47.0) Mean Corpuscular Volume 92 FL (80-99) 93 FL (80-99) Mean Corpuscular Hemoglobin 30.7 PG (27.0-31.0) 31.5 PG (27.0-31.0) H Mean Corpuscular Hemoglobin Concent 33.4 G/DL (32.0-36.0) 33.8 G/DL (32.0-36.0) Red Cell Distribution Width 11.2 % (11.6-14.8) L 11.6 % (11.6-14.8) Platelet Count 262 K/UL (150-450) 199 K/UL (150-450) Mean Platelet Volume 6.8 FL (6.5-10.1) 6.7 FL (6.5-10.1) Neutrophils (%) (Auto) % (45.0-75.0) % (45.0-75.0) Lymphocytes (%) (Auto) % (20.0-45.0) % (20.0-45.0) Monocytes (%) (Auto) % (1.0-10.0) % (1.0-10.0) Eosinophils (%) (Auto) % (0.0-3.0) % (0.0-3.0) Basophils (%) (Auto) % (0.0-2.0) % (0.0-2.0) Differential Total Cells Counted 100 100 Neutrophils % (Manual) 88 % (45-75) H 91 % (45-75) H Lymphocytes % (Manual) 6 % (20-45) L 5 % (20-45) L Monocytes % (Manual) 6 % (1-10) 3 % (1-10) Eosinophils % (Manual) 0 % (0-3) 0 % (0-3) Basophils % (Manual) 0 % (0-2) 0 % (0-2) Band Neutrophils 0 % (0-8) 1 % (0-8) Platelet Estimate Adequate Adequate Platelet Morphology Normal Normal Red Blood Cell Morphology Normal Normal Sodium Level 139 MMOL/L (136-145) Potassium Level 3.5 MMOL/L (3.5-5.1) Chloride Level 101 MMOL/L (98-107) Carbon Dioxide Level 24 MMOL/L (21-32) Anion Gap 15 mmol/L (5-15) Blood Urea Nitrogen 12 mg/dL (7-18) Creatinine 1.1 MG/DL (0.55-1.30) Estimat Glomerular Filtration Rate 58.7 mL/min (>60) Glucose Level 155 MG/DL (74-106) H Calcium Level 10.1 MG/DL (8.5-10.1) Total Bilirubin 0.3 MG/DL (0.2-1.0) Aspartate Amino Transf (AST/SGOT) 36 U/L (15-37) Alanine Aminotransferase (ALT/SGPT) 36 U/L (12-78) Alkaline Phosphatase 61 U/L (46-116) Total Protein 8.6 G/DL (6.4-8.2) H Albumin 5.0 G/DL (3.4-5.0) Globulin 3.6 g/dL Albumin/Globulin Ratio 1.4 (1.0-2.7) Lipase 157 U/L (73-393) Urine Color Pale yellow Urine Appearance Clear Urine pH 8 (4.5-8.0) Urine Specific [place] 1.010 (1.005-1.035) Urine Protein Negative (NEGATIVE) Urine Glucose (UA) Negative (NEGATIVE) Urine Ketones 2+ (NEGATIVE) H Urine Blood Negative (NEGATIVE) Urine Nitrite Negative (NEGATIVE) Urine Bilirubin Negative (NEGATIVE) Urine Urobilinogen Normal MG/DL (0.0-1.0) Urine Leukocyte Esterase Negative (NEGATIVE) Urine HCG, Qualitative Negative (NEGATIVE) Urine Opiates Screen Pending Urine Barbiturates Screen Pending Phencyclidine (PCP) Screen Pending Urine Amphetamines Screen Pending Urine Benzodiazepines Screen Pending Urine Cocaine Screen Pending Urine Marijuana (THC) Screen Pending Height (Feet): 5 Height (Inches): 6.00 Weight (Pounds): 130 Medications Current Medications Medications (Trade) Dose Ordered Sig/Memo Route PRN Reason Start Time Stop Time Status Last Admin Dose Admin Acetaminophen (Tylenol) 650 mg Q4H PRN ORAL Mild Pain (Pain Scale 1-3) 05/17/19 11:00 06/16/19 10:59 Dextrose (Dextrose 50%) 25 ml Q30M PRN IV Hypoglycemia 05/17/19 11:00 06/16/19 10:59 Dextrose (Dextrose 50%) 50 ml Q30M PRN IV Hypoglycemia 05/17/19 11:00 06/16/19 10:59 Diphenhydramine HCl (Benadryl) 25 mg Q6H PRN ORAL Itching/Pruritis 05/17/19 11:00 06/16/19 10:59 Heparin Sodium (Porcine) (Heparin 5000 units/ml) 5,000 units EVERY 12 HOURS SUBQ 05/17/19 21:00 06/16/19 20:59 Lorazepam (Ativan 2mg/ml 1ml) 0.5 mg Q4H PRN IV For Anxiety 05/17/19 11:00 05/24/19 10:59 Morphine Sulfate (Morphine Sulfate) 1 mg Q6H PRN IVP For Pain 4-10 05/17/19 11:00 05/24/19 10:59 Ondansetron HCl (Zofran) 4 mg Q6H PRN IVP Nausea & Vomiting 05/17/19 11:00 06/16/19 10:59 Prochlorperazine (Compazine) 10 mg Q6H PRN IVP Nausea & Vomiting 05/17/19 11:00 06/16/19 10:59 Sodium Chloride 1,000 ml @ 100 mls/hr Q10H IVLG 05/17/19 12:00 06/16/19 11:59 Assessment/Plan Problem List: (1) Leukocytosis Assessment & Plan: Is a 28-year-old female that presents with abdominal discomfort, nausea, diarrhea, emesis. Patient noted to have significant leukocytosis. Low-grade fevers. History of anxiety. Abdominal ultrasound with IMPRESSION: 1. No acute findings. 2. Incidental note of a 1.2 x 0.7 cm echogenic lesion in the right hepatic lobe. This remains indeterminate but likely represents a hemangioma. If there is continued clinical concern, further evaluation with dynamic contrast-enhanced CT or MRI may be considered. Etiology of leukocytosis currently under work-up. IV fluids IV antibiotics will follow with recommendations ICD Codes: D72.829 - Elevated white blood cell count, unspecified SNOMED: [id number], [id number] Qualifiers: Qualified Codes: D72.829 - Elevated white blood cell count, unspecified (2) Intractable vomiting with nausea Assessment & Plan: 28-year-old female with nausea, vomiting, diarrhea. States that she had Mohr's in the evening and since has been feeling unwell. Potential food poisoning, enteritis Leukocytosis Low-grade fevers Abdominal exam currently benign. States the pain is resolved. Recommend hydration and supportive care We will follow with serial exams Thank you for this consultation ICD Codes: R11.2 - Nausea with vomiting, unspecified SNOMED: [id number], [id number] Qualifiers: Qualified Codes: R11.2 - Nausea with vomiting, unspecified (3) Gastritis ICD Codes: K29.70 - Gastritis, unspecified, without bleeding SNOMED: [id number] Chaz Arce May 17, 2019 13:20
[2019-05-17] MEDS: D5 1/2NS w/KCl 20mEq 1,000 ML IV SCH (15:07)
--- NOTE | 2019-05-17 16:48 | NUR ---
CASE MANAGEMENT: INITIAL REVIEW 28 YO F PRESENTED TO ED FROM HOME CC: N/V/D AFTER EATING YATES'S PMHx: MARIJUANA USE. SI:INTRACTABLE VOMITING T 97.3 HR 86 RR 20 B/P 131/100 SATS 98% ON RA WBC 21 GLU 155 U TOX (+THC) IS: ZOFRAN IV X2 NS BOLUS X2 ATIVAN IV X1 HALDOL IM X1 PHENERGAN PO X1 PATIENT TO ADMITTED TO MED/SURG 05/17/2019 @ 0957 DCP: PATIENT TO BE DISCHARGED TO HOME ONCE MEDICALLY CLEARED PLAN OF CARE: GI CONSULT Addendum: 05/17/19 at 1900 by Yulia Ye CM INTERQUAL MET
--- NOTE | 2019-05-17 19:26 | NUR ---
HAND-OFF: Report given to Chantell RN. Patient in stable condition.
--- NOTE | 2019-05-17 19:37 | NUR ---
NURSE NOTES: Received report from LAWSON Acuna. Patient A&Ox4. On room air, no signs of distress or labored breathing. IV intact, patent, and infusing IV fluids. Bed in lowest position with call light in reach. Family at the bedside. Will continue with plan of care.
--- NOTE | 2019-05-17 20:50 | History and Physical ---
History of Present Illness General Date patient seen: May 17, 2019 Reason for Hospitalization: Nausea, Vomiting, and Diarrhea Present Illness HPI 28 year old female with no significant PMH, presented with complaints of intractable vomiting for 1 day. States she was at work when she suddenly felt nauseous and started to vomit, symptoms persisted therefore she came to ED. PT states she smokes marijuana, last was a few days ago, received multiple antieletics in ED with no improvement. Allergies: Coded Allergies: No Known Allergies (Unverified , 03/19/19) Medication History Scheduled Fluoxetine Hcl* (Prozac*), 40 MG ORAL DAILY, (Reported) No Known Medications* (NKM - No Known Medications*), 0 ., (Reported) Quetiapine Fumarate* (Seroquel*), 25 MG ORAL DAILY, (Reported) Scheduled PRN Ondansetron (Zofran), 4 MG ORAL Q6H PRN for Nausea & Vomiting Patient History Healthcare decision maker Resuscitation status Full Code Advanced Directive on File Review of Systems ROS Narrative General ROS: no weight loss or fever, weakness Psychological ROS: no depression or mood changes, no memory loss Ophthalmic ROS: no visual changes or eye irritation ENT ROS: no nasal congestion, hearing loss, dizziness Allergy and Immunology ROS: no allergic symptoms or urticaria Hematological and Lymphatic ROS: no swollen glands, unusual bleeding or bruising Endocrine ROS: no polyuria, polydipsia, weight changes, temperature intolerance Respiratory ROS: no cough, shortness of breath, or wheezing Cardiovascular ROS: no chest pain or dyspnea on exertion Gastrointestinal ROS: abd pain, nausea and vomtiing Musculoskeletal ROS: no myalgias or arthralgias Neurological ROS: no TIA or stroke symptoms Dermatological ROS: no new or changing skin lesions, rashes or pruritis Physical Exam Neck: spinous processes tender Last 24 Hour Vital Signs Date Time Temp Pulse Resp B/P (MAP) Pulse Ox O2 Delivery O2 Flow Rate FiO2 05/17/19 16:00 98.4 70 18 134/100 (111) 99 05/17/19 12:17 Room Air 05/17/19 12:00 98.8 70 20 148/96 (113) 100 05/17/19 11:25 99.5 22 22 112/75 100 Room Air 05/17/19 10:06 99.5 22 22 112/75 100 Room Air 7/28/19 09:03 82 22 118/82 97 Room Air 05/17/19 07:20 77 24 133/60 100 Room Air 05/17/19 03:00 97.3 105 20 131/100 98 Room Air 05/17/19 02:55 97.3 86 20 131/100 (110) 98 Room Air Intake and Output 05/16/19 05/17/19 19:00 07:00 Intake Total 2165 ml Balance 2165 ml Intake IV Total 2165 ml Laboratory Tests Test 05/17/19 03:00 05/17/19 06:30 05/17/19 07:40 White Blood Count 21.0 K/UL (4.8-10.8) H 19.1 K/UL (4.8-10.8) H Red Blood Count 5.22 M/UL (4.20-5.40) 4.28 M/UL (4.20-5.40) Hemoglobin 16.0 G/DL (12.0-16.0) 13.5 G/DL (12.0-16.0) Hematocrit 48.1 % (37.0-47.0) H 39.9 % (37.0-47.0) Mean Corpuscular Volume 92 FL (80-99) 93 FL (80-99) Mean Corpuscular Hemoglobin 30.7 PG (27.0-31.0) 31.5 PG (27.0-31.0) H Mean Corpuscular Hemoglobin Concent 33.4 G/DL (32.0-36.0) 33.8 G/DL (32.0-36.0) Red Cell Distribution Width 11.2 % (11.6-14.8) L 11.6 % (11.6-14.8) Platelet Count 262 K/UL (150-450) 199 K/UL (150-450) Mean Platelet Volume 6.8 FL (6.5-10.1) 6.7 FL (6.5-10.1) Neutrophils (%) (Auto) % (45.0-75.0) % (45.0-75.0) Lymphocytes (%) (Auto) % (20.0-45.0) % (20.0-45.0) Monocytes (%) (Auto) % (1.0-10.0) % (1.0-10.0) Eosinophils (%) (Auto) % (0.0-3.0) % (0.0-3.0) Basophils (%) (Auto) % (0.0-2.0) % (0.0-2.0) Differential Total Cells Counted 100 100 Neutrophils % (Manual) 88 % (45-75) H 91 % (45-75) H Lymphocytes % (Manual) 6 % (20-45) L 5 % (20-45) L Monocytes % (Manual) 6 % (1-10) 3 % (1-10) Eosinophils % (Manual) 0 % (0-3) 0 % (0-3) Basophils % (Manual) 0 % (0-2) 0 % (0-2) Band Neutrophils 0 % (0-8) 1 % (0-8) Platelet Estimate Adequate Adequate Platelet Morphology Normal Normal Red Blood Cell Morphology Normal Normal Sodium Level 139 MMOL/L (136-145) Potassium Level 3.5 MMOL/L (3.5-5.1) Chloride Level 101 MMOL/L (98-107) Carbon Dioxide Level 24 MMOL/L (21-32) Anion Gap 15 mmol/L (5-15) Blood Urea Nitrogen 12 mg/dL (7-18) Creatinine 1.1 MG/DL (0.55-1.30) Estimat Glomerular Filtration Rate 58.7 mL/min (>60) Glucose Level 155 MG/DL (74-106) H Calcium Level 10.1 MG/DL (8.5-10.1) Total Bilirubin 0.3 MG/DL (0.2-1.0) Aspartate Amino Transf (AST/SGOT) 36 U/L (15-37) Alanine Aminotransferase (ALT/SGPT) 36 U/L (12-78) Alkaline Phosphatase 61 U/L (46-116) Total Protein 8.6 G/DL (6.4-8.2) H Albumin 5.0 G/DL (3.4-5.0) Globulin 3.6 g/dL Albumin/Globulin Ratio 1.4 (1.0-2.7) Lipase 157 U/L (73-393) Urine Color Pale yellow Urine Appearance Clear Urine pH 8 (4.5-8.0) Urine Specific [place] 1.010 (1.005-1.035) Urine Protein Negative (NEGATIVE) Urine Glucose (UA) Negative (NEGATIVE) Urine Ketones 2+ (NEGATIVE) H Urine Blood Negative (NEGATIVE) Urine Nitrite Negative (NEGATIVE) Urine Bilirubin Negative (NEGATIVE) Urine Urobilinogen Normal MG/DL (0.0-1.0) Urine Leukocyte Esterase Negative (NEGATIVE) Urine HCG, Qualitative Negative (NEGATIVE) Urine Opiates Screen Negative (NEGATIVE) Urine Barbiturates Screen Negative (NEGATIVE) Phencyclidine (PCP) Screen Negative (NEGATIVE) Urine Amphetamines Screen Negative (NEGATIVE) Urine Benzodiazepines Screen Negative (NEGATIVE) Urine Cocaine Screen Negative (NEGATIVE) Urine Marijuana (THC) Screen Positive (NEGATIVE) H Height (Feet): 5 Height (Inches): 6.00 Weight (Pounds): 130 Medications Current Medications Medications (Trade) Dose Ordered Sig/Memo Route PRN Reason Start Time Stop Time Status Last Admin Dose Admin Acetaminophen (Tylenol) 650 mg Q4H PRN ORAL Mild Pain (Pain Scale 1-3) 05/17/19 11:00 06/16/19 10:59 Dextrose (Dextrose 50%) 25 ml Q30M PRN IV Hypoglycemia 05/17/19 11:00 06/16/19 10:59 Dextrose (Dextrose 50%) 50 ml Q30M PRN IV Hypoglycemia 05/17/19 11:00 06/16/19 10:59 Dextrose/ Electrolytes 1,000 ml @ 100 mls/hr Q10H IV 05/17/19 14:00 06/16/19 13:59 05/17/19 15:07 Diphenhydramine HCl (Benadryl) 25 mg Q6H PRN ORAL Itching/Pruritis 05/17/19 11:00 06/16/19 10:59 Fluoxetine HCl (PROzac) 40 mg DAILY ORAL 05/18/19 09:00 06/17/19 08:59 Heparin Sodium (Porcine) (Heparin 5000 units/ml) 5,000 units EVERY 12 HOURS SUBQ 05/17/19 21:00 06/16/19 20:59 Lorazepam (Ativan 2mg/ml 1ml) 0.5 mg Q4H PRN IV For Anxiety 05/17/19 11:00 05/24/19 10:59 Morphine Sulfate (Morphine Sulfate) 1 mg Q6H PRN IVP For Pain 4-10 05/17/19 11:00 05/24/19 10:59 Ondansetron HCl (Zofran) 4 mg Q6H PRN IVP Nausea & Vomiting 05/17/19 11:00 06/16/19 10:59 Prochlorperazine (Compazine) 10 mg Q6H PRN IVP Nausea & Vomiting 05/17/19 11:00 06/16/19 10:59 05/17/19 15:07 Quetiapine Fumarate (SEROquel) 25 mg DAILY ORAL 05/18/19 09:00 06/17/19 08:59 Objective Narrative General appearance: alert, cooperative, no distress, appears stated age Head: Normocephalic, without obvious abnormality, atraumatic Eyes: conjunctivae/corneas clear. PERRL, EOM's intact. Fundi benign Throat: Lips, mucosa, and tongue normal. Teeth and gums normal Neck: supple, symmetrical, trachea midline, no adenopathy, thyroid: not enlarged , symmetric, no tenderness/mass/nodules, no carotid bruit and no JVD Lungs: clear to auscultation bilaterally Heart: regular rate and rhythm, S1, S2 normal, no murmur, click, rub or gallop Abdomen: soft, mild TTP Bowel sounds normal. No masses, no organomegaly Extremities: extremities normal, atraumatic, no cyanosis or edema Pulses: 2+ and symmetric Skin: Skin color, texture, turgor normal. No rashes or lesions Neurologic: Grossly normal Assessment/Plan Assessment/Plan: Pt admitted for cyclic vomiting likely 2/2 THC #Cyclic vomiting likley 2/2 THC abuse -cont antiemetics -s/p haldol and ativan with no improvement -Monitor electrolytes -educated on improtance of stopping THC -mIVF -clear liq adv as tolerated #Hypokalemia -repleted -CTM Code: Egg Sorter of note may not reflect time of encounter Kristel Ortiz MD May 17, 2019 20:50
[2019-05-17] MEDS: Heparin 5000 units/ml inj SUBQ SCH (21:00)
[2019-05-18] VITALS: BP 120/72
[2019-05-18] MEDS: D5 1/2NS w/KCl 20mEq 1,000 ML IV SCH ×3 (00:59→20:17)
[2019-05-18 04:00] VITALS: BP 145/89
--- NOTE | 2019-05-18 07:30 | NUR ---
NURSE NOTES: Patient is in bed asleep. Stable. No facial grimacing or signs of discomfort noted. Breathing is even and unlabored. Patient is in bed in locked and lowest position with call light within reach. Sister is at bedside. All safety measures provided. Will continue to monitor.
[2019-05-18 07:38] LABS: BASOPHILS % (AUTO) 0.2 % (0.0-2.0); HEMATOCRIT 44.7 % (37.0-47.0); HEMOGLOBIN 14.9 G/DL (12.0-16.0); LYMPHOCYTES % (AUTO) 7.3 % (20.0-45.0); MEAN CORPUSCULAR VOLUME 94 FL (80-99); MONOCYTES % (AUTO) 7.9 % (1.0-10.0); NEUTROPHILS % (AUTO) 84.5 % (45.0-75.0); PLATELET COUNT 221 K/UL (150-450); RED BLOOD COUNT 4.77 M/UL (4.20-5.40)
--- NOTE | 2019-05-18 07:40 | NUR ---
HAND-OFF: Report given to LAWSON Tolbert.
[2019-05-18 07:59] LABS: ANION GAP 11 mmol/L (5-15); BLOOD UREA NITROGEN 7 mg/dL (7-18); CALCIUM 8.5 MG/DL (8.5-10.1); CARBON DIOXIDE 24 MMOL/L (21-32); CHLORIDE 105 MMOL/L (98-107); CREATININE 0.7 MG/DL (0.55-1.30); PHOSPHORUS 2.3 MG/DL (2.5-4.9); POTASSIUM 3.2 MMOL/L (3.5-5.1); SODIUM 140 MMOL/L (136-145)
[2019-05-18 08:00] VITALS: BP 134/85
[2019-05-18] MEDS: Heparin 5000 units/ml inj SUBQ SCH ×2 (08:33→21:00)
[2019-05-18] MEDS ORDERED: Potassium Phosphate 20 MM in NS 275 ML IV ONE (10:30)
[2019-05-18 12:00] VITALS: BP 155/89
--- NOTE | 2019-05-18 12:43 | Surgery Progress Note ---
Surgery Progress Note Subjective Additional Comments patient continues to have episodes of emesis c/o abdominal intermittent cramping no diarrhea recently labs noted exam unchanged diaphoretic Objective Last 24 Hour Vital Signs Date Time Temp Pulse Resp B/P (MAP) Pulse Ox O2 Delivery O2 Flow Rate FiO2 05/18/19 12:00 98.4 55 18 155/89 (111) 98 05/18/19 08:00 97.2 67 20 134/85 (101) 98 05/18/19 07:59 Room Air 05/18/19 04:00 99.3 68 18 145/89 (107) 99 05/18/19 00:00 99.4 68 20 120/72 (88) 96 05/17/19 21:00 Room Air 05/17/19 20:00 99.2 68 20 134/87 (103) 100 05/17/19 16:00 98.4 70 18 134/100 (111) 99 I&O Intake and Output 05/17/19 05/18/19 19:00 07:00 Intake Total 125 ml 400 ml Balance 125 ml 400 ml Intake IV Total 125 ml 400 ml # Voids 2 Cardiovascular: RSR Respiratory: clear Abdomen: soft, flat, tenderness - discomfort , present bowel sounds Extremities: no edema, no tenderness, no cyanosis Laboratory Tests Test 05/18/19 05:39 White Blood Count 13.0 K/UL (4.8-10.8) H Red Blood Count 4.77 M/UL (4.20-5.40) Hemoglobin 14.9 G/DL (12.0-16.0) Hematocrit 44.7 % (37.0-47.0) Mean Corpuscular Volume 94 FL (80-99) Mean Corpuscular Hemoglobin 31.2 PG (27.0-31.0) H Mean Corpuscular Hemoglobin Concent 33.3 G/DL (32.0-36.0) Red Cell Distribution Width 12.0 % (11.6-14.8) Platelet Count 221 K/UL (150-450) Mean Platelet Volume 6.3 FL (6.5-10.1) L Neutrophils (%) (Auto) 84.5 % (45.0-75.0) H Lymphocytes (%) (Auto) 7.3 % (20.0-45.0) L Monocytes (%) (Auto) 7.9 % (1.0-10.0) Eosinophils (%) (Auto) 0.0 % (0.0-3.0) Basophils (%) (Auto) 0.2 % (0.0-2.0) Sodium Level 140 MMOL/L (136-145) Potassium Level 3.2 MMOL/L (3.5-5.1) L Chloride Level 105 MMOL/L (98-107) Carbon Dioxide Level 24 MMOL/L (21-32) Anion Gap 11 mmol/L (5-15) Blood Urea Nitrogen 7 mg/dL (7-18) Creatinine 0.7 MG/DL (0.55-1.30) Estimat Glomerular Filtration Rate > 60 mL/min (>60) Glucose Level 119 MG/DL (74-106) H Calcium Level 8.5 MG/DL (8.5-10.1) Phosphorus Level 2.3 MG/DL (2.5-4.9) L Magnesium Level 1.9 MG/DL (1.8-2.4) Plan Problems: (1) Leukocytosis Assessment & Plan: Is a 28-year-old female that presents with abdominal discomfort, nausea, diarrhea, emesis. Patient noted to have significant leukocytosis. Low-grade fevers. History of anxiety. Abdominal ultrasound with IMPRESSION: 1. No acute findings. 2. Incidental note of a 1.2 x 0.7 cm echogenic lesion in the right hepatic lobe. This remains indeterminate but likely represents a hemangioma. If there is continued clinical concern, further evaluation with dynamic contrast-enhanced CT or MRI may be considered. Etiology of leukocytosis currently under work-up. - resolvig IV fluids IV antibiotics will follow with recommendations (2) Intractable vomiting with nausea Assessment & Plan: 28-year-old female with nausea, vomiting, diarrhea. States that she had Mohr's in the evening and since has been feeling unwell. Potential food poisoning, enteritis Leukocytosis Low-grade fevers c/o discomfort today CT scan ordered Recommend hydration and supportive care We will follow with serial exams Thank you for this consultation (3) Chaz Guzman May 18, 2019 12:43
[2019-05-18] MEDS ORDERED: Isovue-300 100ml vial INJ PRN (12:45)
--- NOTE | 2019-05-18 13:35 | NUR ---
NURSE NOTES: Patient is shivering. Administered tylenol as ordered. Tolerated well.
--- NOTE | 2019-05-18 14:46 | NUR ---
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 97.2 HR 55 RR 18 B/P 155/89 RA 98% WBC 13.0 K 3.2 IS: K-PHOS IV IVF D5 NS @ 100ML/HR ZOFRAN IV COMPAZINE IV ABD CT MED/SURG STATUS
[2019-05-18 16:00] VITALS: BP 133/85
--- NOTE | 2019-05-18 16:52 | Diagnostic Imaging Report ---
Clinical Indication: Abdominal pain Technique: No oral contrast utilized, per referring physician request IV administration nonionic contrast. Venous phase spiral acquisition obtained through the abdomen and pelvis. Multiplanar reconstructions were generated. Total dose length product 521.15 mGycm. CTDIvol(s) 10.04 mGy. Dose reduction achieved using automated exposure control Comparison: none Findings: Lack of enteric contrast limits assessment of the GI tract. No evidence of colonic diverticulosis or diverticulitis. The appendix is normal. No small bowel distention. No free or loculated intraperitoneal gas or fluid is evident. The distal esophagus, stomach, duodenum are unremarkable. The liver demonstrates scattered subcentimeter low-attenuation lesions which are too small to characterize. The gallbladder, bile ducts, pancreas, spleen, adrenals, kidneys are unremarkable. No retroperitoneal or mesenteric mass or adenopathy. There is a 5 cm diameter solid mass in the left adnexa. There is a partially collapsed follicle in the right ovary. No free cul-de-sac fluid. The uterus is unremarkable. The included lung bases are clear. The bones are unremarkable Impression: 5 cm diameter left adnexal solid mass versus a large ovary. Recommend pelvic/endovaginal ultrasound for better characterization Suggestion of a partially collapsed follicle in the right ovary No acute process otherwise Subcentimeter low-attenuation liver lesions incidentally noted, too small to characterize, most likely benign simple cysts or bile hamartomas. Findings discussed by phone with Dr. Arce at the time of interpretation The CT scanner at [facility] is accredited by the [place] [employer] and the scans are performed using protocols designed to limit radiation exposure to as low as reasonably achievable to attain images of sufficient resolution adequate for diagnostic evaluation.
--- NOTE | 2019-05-18 18:30 | NUR ---
NURSE NOTES: US taken. Awaiting results.
--- NOTE | 2019-05-18 19:52 | NUR ---
HAND-OFF: Report given to Kendrick PATHAK. Patient is stable.
--- NOTE | 2019-05-18 20:00 | NUR ---
NURSE NOTES: Received patient from morning RN. Patient in bed awake and orientated, no SOB, patient still having nausea, prn antiemetics given at 1999. IV fluids running, family at bedside. Call light within reach, bed is in locked and low position. Patient in stable condition.
[2019-05-18 20:15] VITALS: BP 150/93
--- NOTE | 2019-05-18 20:20 | General Progress Note ---
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 may not reflect time of encounter Subjective Date patient seen: May 18, 2019 Allergies: Coded Allergies: No Known Allergies (Unverified , 03/19/19) Subjective No acute overnight events, states she feels a little better, has no tried to eat , nausea and vomiting has improved Objective Last 24 Hour Vital Signs Date Time Temp Pulse Resp B/P (MAP) Pulse Ox O2 Delivery O2 Flow Rate FiO2 05/18/19 16:00 98.2 58 20 133/85 (101) 100 05/18/19 13:56 97.6 05/18/19 12:00 98.4 55 18 155/89 (111) 98 05/18/19 08:00 97.2 67 20 134/85 (101) 98 05/18/19 07:59 Room Air 05/18/19 04:00 99.3 68 18 145/89 (107) 99 05/18/19 00:00 99.4 68 20 120/72 (88) 96 05/17/19 21:00 Room Air Intake and Output 05/17/19 05/18/19 19:00 07:00 Intake Total 125 ml 400 ml Balance 125 ml 400 ml IV Total 125 ml 400 ml # Voids 2 Laboratory Tests 05/18/19 05:39: White Blood Count 13.0H, Red Blood Count 4.77, Hemoglobin 14.9, Hematocrit 44.7 , Mean Corpuscular Volume 94, Mean Corpuscular Hemoglobin 31.2H, Mean Corpuscular Hemoglobin Concent 33.3, Red Cell Distribution Width 12.0, Platelet Count 221, Mean Platelet Volume 6.3L, Neutrophils (%) (Auto) 84.5H, Lymphocytes (%) (Auto) 7.3L, Monocytes (%) (Auto) 7.9, Eosinophils (%) (Auto) 0.0, Basophils (%) (Auto) 0.2, Sodium Level 140, Potassium Level 3.2L, Chloride Level 105, Carbon Dioxide Level 24, Anion Gap 11, Blood Urea Nitrogen 7, Creatinine 0.7, Estimat Glomerular Filtration Rate > 60, Glucose Level 119H, Calcium Level 8.5, Phosphorus Level 2.3L, Magnesium Level 1.9 Height (Feet): 5 Height (Inches): 6.00 Weight (Pounds): 130 Objective General appearance: alert, cooperative, no distress, appears stated age Head: Normocephalic, without obvious abnormality, atraumatic Eyes: conjunctivae/corneas clear. PERRL, EOM's intact. Fundi benign Throat: Lips, mucosa, and tongue normal. Teeth and gums normal Neck: supple, symmetrical, trachea midline, no adenopathy, thyroid: not enlarged , symmetric, no tenderness/mass/nodules, no carotid bruit and no JVD Lungs: clear to auscultation bilaterally Heart: regular rate and rhythm, S1, S2 normal, no murmur, click, rub or gallop Abdomen: soft, mild TTP Bowel sounds normal. No masses, no organomegaly Extremities: extremities normal, atraumatic, no cyanosis or edema Pulses: 2+ and symmetric Skin: Skin color, texture, turgor normal. No rashes or lesions Neurologic: Grossly normal Kristel Ortiz MD May 18, 2019 20:19
[2019-05-19] VITALS: BP 127/89
[2019-05-19 04:00] VITALS: BP 131/86
--- NOTE | 2019-05-19 04:03 | NUR ---
NURSE NOTES: Patient still complaining of nausea, vomitus x2. PRN anti emetics given. Repositioned for comfort. Family still at bedside. Needs attended. Will cont to monitor.
[2019-05-19] MEDS: D5 1/2NS w/KCl 20mEq 1,000 ML IV SCH ×2 (05:15→15:37)
[2019-05-19] MEDS: LORazepam Inj 2mg/ml 1ml IV PRN ×2 (05:20→20:07)
[2019-05-19 06:40] LABS: BASOPHILS % (AUTO) 0.3 % (0.0-2.0); HEMATOCRIT 45.1 % (37.0-47.0); LYMPHOCYTES % (AUTO) 9.9 % (20.0-45.0); MEAN CORPUSCULAR VOLUME 94 FL (80-99); MONOCYTES % (AUTO) 8.1 % (1.0-10.0); NEUTROPHILS % (AUTO) 81.7 % (45.0-75.0); PLATELET COUNT 199 K/UL (150-450); RED BLOOD COUNT 4.82 M/UL (4.20-5.40); RED CELL DISTRIBUTION WIDTH 11.6 % (11.6-14.8); WHITE BLOOD COUNT 13.3 K/UL (4.8-10.8)
[2019-05-19 06:54] LABS: ALANINE AMINOTRANSFERASE 36 U/L (12-78); ALBUMIN 3.7 G/DL (3.4-5.0); ALBUMIN/GLOBULIN RATIO 0.9 (1.0-2.7); ALKALINE PHOSPHATASE 50 U/L (46-116); ANION GAP 9 mmol/L (5-15); ASPARTATE AMINO TRANSFERASE 19 U/L (15-37); BILIRUBIN,TOTAL 0.4 MG/DL (0.2-1.0); BLOOD UREA NITROGEN 7 mg/dL (7-18); CALCIUM 8.5 MG/DL (8.5-10.1); CARBON DIOXIDE 26 MMOL/L (21-32); CHLORIDE 104 MMOL/L (98-107); CREATININE 0.7 MG/DL (0.55-1.30); PHOSPHORUS 2.4 MG/DL (2.5-4.9); POTASSIUM 3.1 MMOL/L (3.5-5.1); SODIUM 139 MMOL/L (136-145)
--- NOTE | 2019-05-19 07:12 | NUR ---
HAND-OFF: Report given to Nirav PATHAK. Patient's potassium continues to trend down. Current labs pottasium is 3.1 and phosporous 2.4. MD Ortiz called and notified.
--- NOTE | 2019-05-19 07:30 | NUR ---
NURSE NOTES: Patient lying in bed sleeping. No complain of pain or distress at this time. No complain N/V at this time. Skin intact and dry. IV dressing intact and dry. Bed lowest position. Call light within reach. Will continue to monitor.
[2019-05-19 08:00] VITALS: BP 123/89
--- NOTE | 2019-05-19 08:47 | NUR ---
NURSE NOTES: Spoke to regarding morning lab and Heparin and new order received. Order read back and carried out.
--- NOTE | 2019-05-19 10:35 | Diagnostic Imaging Report ---
Indication:Lower abdominal and pelvic pain Technique: Grayscale and duplex Doppler imaging of the pelvis performed utilizing a transabdominal and endovaginal scan. Comparison: None Findings: The size, contour, and configuration of the uterus is within normal limits. The endometrium is uniformly echogenic and normal in thickness measuring 14 mm. Uterus measures 7.7 x 6.4 x 4.2 cm. The ovaries appear normal bilaterally with good dopplerable blood flow. In the left ovary there is a hypoechoic mass measuring 3.6 cm with low-level internal echoes. This is likely a hemorrhagic cyst. Recommend follow-up at 6 weeks during another phase of the menstrual cycle. There is mild free fluid identified. Right ovary measures 3.3 x 3.9 x 1.8 cm. Left ovary 4.7 x 4.7 x 2.9 cm. IMPRESSION: 3.6 cm left ovarian mass possibly a hemorrhagic cyst. Recommend six-week interval follow-up examination.
[2019-05-19 12:00] VITALS: BP 121/97
--- NOTE | 2019-05-19 12:21 | Surgery Progress Note ---
Surgery Progress Note Subjective Symptoms: improved, pain absent, tolerating diet, passing flatus Objective Last 24 Hour Vital Signs Date Time Temp Pulse Resp B/P (MAP) Pulse Ox O2 Delivery O2 Flow Rate FiO2 05/19/19 12:00 98.0 67 16 121/97 (105) 97 05/19/19 09:00 Room Air 05/19/19 08:00 98.6 61 16 123/89 (100) 98 05/19/19 04:00 98.9 62 16 131/86 (101) 99 05/19/19 00:00 99.3 60 18 127/89 (102) 98 05/18/19 21:00 Room Air 05/18/19 20:15 98.8 61 18 150/93 (112) 98 05/18/19 16:00 98.2 58 20 133/85 (101) 100 05/18/19 13:56 97.6 I&O Intake and Output 05/18/19 05/19/19 19:00 07:00 Intake Total 1120 ml 1140 ml Output Total 500 ml Balance 1120 ml 640 ml Intake Oral 120 ml 40 ml IV Total 1000 ml 1100 ml Output Emesis 500 ml # Voids 1 Cardiovascular: RSR Respiratory: clear Abdomen: soft, flat, non-tender, present bowel sounds, non-distended Extremities: no edema, no tenderness, no cyanosis Laboratory Tests Test 05/19/19 05:30 White Blood Count 13.3 K/UL (4.8-10.8) H Red Blood Count 4.82 M/UL (4.20-5.40) Hemoglobin 15.0 G/DL (12.0-16.0) Hematocrit 45.1 % (37.0-47.0) Mean Corpuscular Volume 94 FL (80-99) Mean Corpuscular Hemoglobin 31.1 PG (27.0-31.0) H Mean Corpuscular Hemoglobin Concent 33.2 G/DL (32.0-36.0) Red Cell Distribution Width 11.6 % (11.6-14.8) Platelet Count 199 K/UL (150-450) Mean Platelet Volume 7.0 FL (6.5-10.1) Neutrophils (%) (Auto) 81.7 % (45.0-75.0) H Lymphocytes (%) (Auto) 9.9 % (20.0-45.0) L Monocytes (%) (Auto) 8.1 % (1.0-10.0) Eosinophils (%) (Auto) 0.0 % (0.0-3.0) Basophils (%) (Auto) 0.3 % (0.0-2.0) Erythrocyte Sedimentation Rate 6 MM/HR (0-20) Sodium Level 139 MMOL/L (136-145) Potassium Level 3.1 MMOL/L (3.5-5.1) L Chloride Level 104 MMOL/L (98-107) Carbon Dioxide Level 26 MMOL/L (21-32) Anion Gap 9 mmol/L (5-15) Blood Urea Nitrogen 7 mg/dL (7-18) Creatinine 0.7 MG/DL (0.55-1.30) Estimat Glomerular Filtration Rate > 60 mL/min (>60) Glucose Level 122 MG/DL (74-106) H Calcium Level 8.5 MG/DL (8.5-10.1) Phosphorus Level 2.4 MG/DL (2.5-4.9) L Total Bilirubin 0.4 MG/DL (0.2-1.0) Aspartate Amino Transf (AST/SGOT) 19 U/L (15-37) Alanine Aminotransferase (ALT/SGPT) 36 U/L (12-78) Alkaline Phosphatase 50 U/L (46-116) C-Reactive Protein, Quantitative < 0.4 mg/dL (0.00-0.90) Total Protein 7.6 G/DL (6.4-8.2) Albumin 3.7 G/DL (3.4-5.0) Globulin 3.9 g/dL Albumin/Globulin Ratio 0.9 (1.0-2.7) L Plan Problems: (1) Leukocytosis Assessment & Plan: Is a 28-year-old female that presents with abdominal discomfort, nausea, diarrhea, emesis. Patient noted to have significant leukocytosis. Low-grade fevers. History of anxiety. Abdominal ultrasound with IMPRESSION: 1. No acute findings. 2. Incidental note of a 1.2 x 0.7 cm echogenic lesion in the right hepatic lobe. This remains indeterminate but likely represents a hemangioma. If there is continued clinical concern, further evaluation with dynamic contrast-enhanced CT or MRI may be considered. Etiology of leukocytosis currently under work-up. - resolving IV fluids IV antibiotics will follow with recommendations (2) Intractable vomiting with nausea Assessment & Plan: 28-year-old female with nausea, vomiting, diarrhea. States that she had Mohr's in the evening and since has been feeling unwell. 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
--- NOTE | 2019-05-19 12:51 | NUR ---
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 98.0 HR 67 RR 16 B/P 121/97 RA 98% WBC 13.33 K 3.1 TRANSVAGINAL US=3.6 CM LEFT OVARIAN CYST IS: IVF D5KCL@ 100ML/HR SEROQUEL PO PROZAC PO K-DUR IV X 1 MED/SURG STATUS
[2019-05-19 16:00] VITALS: BP 128/85
--- NOTE | 2019-05-19 18:38 | General Progress Note ---
Assessment/Plan Assessment/Plan: Pt admitted for cyclic vomiting likely 2/2 THC #Cyclic vomiting likley 2/2 THC abuse -cont antiemetics -s/p haldol and ativan with no improvement -Monitor electrolytes -educated on improtance of stopping THC -mIVF -clear liq adv as tolerated -CT noted - #Poss hemorrhagic cyst on US -will need outpatient follow up - discussed with pt #Hypokalemia -repleted -CTM #Dispo -likely dc in AM Code: Gimp Buttonhole Machine Operator of note may not reflect time of encounter Subjective Date patient seen: May 19, 2019 Allergies: Coded Allergies: No Known Allergies (Unverified , 03/19/19) Subjective No acute overnight events, states she feels a little better, still with nausea and hypokalemia, US reviewed, likely hemorrhagic cyst - will need outpt follow up Objective Last 24 Hour Vital Signs Date Time Temp Pulse Resp B/P (MAP) Pulse Ox O2 Delivery O2 Flow Rate FiO2 05/19/19 16:00 98.1 72 16 128/85 (99) 98 05/19/19 12:00 98.0 67 16 121/97 (105) 97 05/19/19 09:00 Room Air 05/19/19 08:00 98.6 61 16 123/89 (100) 98 05/19/19 04:00 98.9 62 16 131/86 (101) 99 05/19/19 00:00 99.3 60 18 127/89 (102) 98 05/18/19 21:00 Room Air 05/18/19 20:15 98.8 61 18 150/93 (112) 98 Intake and Output 05/18/19 05/19/19 18:59 06:59 Intake Total 920 ml 1340 ml Output Total 500 ml Balance 920 ml 840 ml Intake Oral 120 ml 40 ml IV Total 800 ml 1300 ml Output Emesis 500 ml # Voids 1 Laboratory Tests 05/19/19 05:30: White Blood Count 13.3H, Red Blood Count 4.82, Hemoglobin 15.0, Hematocrit 45.1 , Mean Corpuscular Volume 94, Mean Corpuscular Hemoglobin 31.1H, Mean Corpuscular Hemoglobin Concent 33.2, Red Cell Distribution Width 11.6, Platelet Count 199, Mean Platelet Volume 7.0, Neutrophils (%) (Auto) 81.7H, Lymphocytes ( %) (Auto) 9.9L, Monocytes (%) (Auto) 8.1, Eosinophils (%) (Auto) 0.0, Basophils (%) (Auto) 0.3, Erythrocyte Sedimentation Rate 6, Sodium Level 139, Potassium Level 3.1L, Chloride Level 104, Carbon Dioxide Level 26, Anion Gap 9, Blood Urea Nitrogen 7, Creatinine 0.7, Estimat Glomerular Filtration Rate > 60, Glucose Level 122H, Calcium Level 8.5, Phosphorus Level 2.4L, Total Bilirubin 0.4, Aspartate Amino Transf (AST/SGOT) 19, Alanine Aminotransferase (ALT/SGPT) 36, Alkaline Phosphatase 50, C-Reactive Protein, Quantitative < 0.4, Total Protein 7.6, Albumin 3.7, Globulin 3.9, Albumin/Globulin Ratio 0.9L Height (Feet): 5 Height (Inches): 6.00 Weight (Pounds): 130 Objective General appearance: alert, cooperative, no distress, appears stated age Head: Normocephalic, without obvious abnormality, atraumatic Eyes: conjunctivae/corneas clear. PERRL, EOM's intact. Fundi benign Throat: Lips, mucosa, and tongue normal. Teeth and gums normal Neck: supple, symmetrical, trachea midline, no adenopathy, thyroid: not enlarged , symmetric, no tenderness/mass/nodules, no carotid bruit and no JVD Lungs: clear to auscultation bilaterally Heart: regular rate and rhythm, S1, S2 normal, no murmur, click, rub or gallop Abdomen: soft, mild TTP Bowel sounds normal. No masses, no organomegaly Extremities: extremities normal, atraumatic, no cyanosis or edema Pulses: 2+ and symmetric Skin: Skin color, texture, turgor normal. No rashes or lesions Neurologic: Grossly normal Kristel Ortiz MD May 19, 2019 18:38
--- NOTE | 2019-05-19 19:30 | NUR ---
HAND-OFF: Report given to Kendrick PATHAK and Zac PATHAK. Patient in stable condition.
[2019-05-20] MEDS: D5 1/2NS w/KCl 20mEq 1,000 ML IV SCH (02:09)
[2019-05-20 04:00] VITALS: BP 124/77
[2019-05-20] MEDS: LORazepam Inj 2mg/ml 1ml IV PRN (05:55)
--- NOTE | 2019-05-20 07:21 | NUR ---
HAND-OFF: Report given to LAWSON Lind. In stable condition.
--- NOTE | 2019-05-20 07:25 | NUR ---
NURSE NOTES: Patient lying in bed sleeping. No complain of pain or distress or N/V at this time. Skin intact and dry. IV dressing intact and dry. Bed lowest position. Call light within reach. Will continue to monitor.
[2019-05-20 08:00] VITALS: BP 114/74
--- NOTE | 2019-05-20 08:10 | NUR ---
NURSE NOTES: Spoke to regarding blood test and new order received. Order read back and carried out.
[2019-05-20 09:16] LABS: ANION GAP 6 mmol/L (5-15); BLOOD UREA NITROGEN 8 mg/dL (7-18); CALCIUM 8.8 MG/DL (8.5-10.1); CARBON DIOXIDE 29 MMOL/L (21-32); CHLORIDE 103 MMOL/L (98-107); CREATININE 0.8 MG/DL (0.55-1.30); PHOSPHORUS 2.9 MG/DL (2.5-4.9); POTASSIUM 3.6 MMOL/L (3.5-5.1); SODIUM 138 MMOL/L (136-145)
--- NOTE | 2019-05-20 10:29 | Discharge Instructions ---
Discharge Instructions Discharge Instructions Follow up with: pcp and postal service clerk Diet: clear liquid Resume Normal Activity?: Yes Activity: resume normal activities For Congestive Heart Failure Reminder Report to your physician any weight gain of 5 pounds or more in one week. Kristel Ortiz MD May 20, 2019 10:29
--- NOTE | 2019-05-20 11:25 | NUR ---
NURSE NOTES: Patient discharged with family member in stable condition. Discharge instruction given to patient and verbalized understanding. Instructed to follow up with Wafer Fab Operator doctor. Belonging and prescription given to patient. IV and ID removed. Patient ambulated out with all personal belongings with steady gait.
--- NOTE | 2019-05-20 18:20 | Discharge Summary ---
Discharge Summary Hospital Course Date of Admission May 17, 2019 at 09:57 Date of Discharge May 20, 2019 at 11:25 Admitting Diagnosis INTRACTABLE VOMITING HPI Dany Ferguson is a 28 year old female who was admitted on May 17, 2019 at 09:57 for Intractable Vomiting Consultations surgery Hospital Course 28 year old female admitted for cyclic vomiting with electrolyte abnormalitites , symptoms likely 2/2 marijuana abuse. Pts electrolytes were monitored and repleted as needed. Nausea and vomiting were controlled with Zofran, CT abdomen was unremarkable. US pelvis positive for likely hemorrhagic cyst, pt understands she will need to follow up with outpatient MARINE CARGO INSPECTOR for follow up imaging. On discharge, pt ambulating with a stable gait, tolerating clear liquid diet and hemodynamically stable Discharge Medications Continued Medications: Fluoxetine Hcl* (Prozac*) 40 Mg Capsule 40 MG ORAL DAILY, CAP (This prescription has been renewed) No Known Medications* (NKM - No Known Medications*) . 0 ., 0 Refills (This prescription has been renewed) Ondansetron (Zofran) 4 Mg Tablet 4 MG ORAL Q6H PRN for Nausea & Vomiting, #10 TAB 0 Refills Quetiapine Fumarate* (Seroquel*) 25 Mg Tablet 25 MG ORAL DAILY, TAB (This prescription has been renewed) Discharge Condition Upon Discharge: stable Discharge Disposition Patient was discharged to home Discharge Instructions Discharge Instructions Follow up with: pcp and copy writer Activity: resume normal activities Kristel Ortiz MD May 20, 2019 18:20
== END 2019-05-20 11:25 | disposition home or self-care (01) | DRG 776 ==
LOC: EMR 02:53 → 3E 09:57 → EDBEDREQ 10:27
DX: F12.188 Cannabis abuse with other cannabis-induced disorder (principal); G43.A0 Cyclical vomiting, in migraine, not intractable; K29.70 Gastritis, unspecified, without bleeding; T62.8X1A Toxic effect of other specified noxious substances eaten as food, accidental (unintentional), initial encounter; K52.9 Noninfective gastroenteritis and colitis, unspecified; E87.6 Hypokalemia
CPT/HCPCS: 36415; 74177; 76700; 76830; 76856; 80048; 80053; 80307; 81003; 81025; 83690; 83735; 84100; 85007; 85025; 85651; 86140; 96361; 96365; 96375; 96376; 99285; J2405

== ENCOUNTER 2019-06-25 01:00 | Inpatient (IN) | payer MEDICAID, OTHER ==
[2019-06-25] VITALS (7 sets, daily range): BP systolic 96–126; BP diastolic 65–88
[~2019-06-25] VITALS: Ht 162.6 cm; Wt 52.6 kg
[~2019-06-25 01:00] MED LIST changes: +NKM; +ZOFRAN4 MG ORAL
--- NOTE | 2019-06-25 01:13 | Emergency Room Report ---
History of Present Illness General Chief Complaint: Abdominal Pain Source: Patient Present Illness HPI Is a 29-year-old female with history of cyclic vomiting syndrome. She presents with complaint of severe abdominal pain with nausea and vomiting. Onset was acute. Occurred about 30 minutes to an hour ago. She woke up with it. Pain is severe 10 out of 10. Vomiting is nonbloody nonbilious. No diarrhea. No urinary complaint. Similar symptom last time she was here and got admitted. Denies any other complaint. Allergies: Coded Allergies: No Known Allergies (Unverified , 06/25/19) Patient History Past Medical History: see triage record, old chart reviewed Past Surgical History: none Pertinent Family History: none Social History: Denies: smoking Last Menstrual Period: Now: No Immunizations: other Reviewed Nursing Documentation: PMH: Agreed; PSxH: Agreed Nursing Documentation-PMH Hx Cardiac Problems: No Hx Cancer: No Hx Gastrointestinal Problems: Yes - Abdominal pain Hx Neurological Problems: No Review of Systems Eye: Denies: eye pain, blurred vision ENT: Denies: ear pain, nose congestion, throat swelling Respiratory: Denies: cough, shortness of breath Cardiovascular: Denies: chest pain, palpitations Gastrointestinal: Reports: abdominal pain, nausea, vomiting; Denies: diarrhea Musculoskeletal: Denies: back pain, joint pain Skin: Denies: rash Neurological: Denies: headache, numbness Endocrine: Denies: increased thirst, increased urine Hematologic/Lymphatic: Denies: easy bruising All Other Systems: negative except mentioned in HPI Physical Exam Vital Signs Date Time Temp Pulse Resp B/P (MAP) Pulse Ox O2 Delivery O2 Flow Rate FiO2 06/25/19 01:05 98.2 92 16 124/74 (91) 98 Room Air Vitals normal Sp02 EP Interpretation: reviewed, normal General Appearance: well appearing, no apparent distress, alert Head: normocephalic, atraumatic Eyes: bilateral eye PERRL, bilateral eye EOMI ENT: hearing grossly normal, normal pharynx Neck: full range of motion, supple, no meningismus Respiratory: chest non-tender, lungs clear, normal breath sounds Cardiovascular #1: regular rate, rhythm, no murmur Gastrointestinal: no mass, no organomegaly, no bruit, non-distended, tenderness - Diffuse, decreased bowel sounds Musculoskeletal: back normal, gait/station normal, normal range of motion Psychiatric: anxious Medical Decision Making Diagnostic Impression: Primary Impression: Intractable abdominal pain Additional Impressions: Leukocytosis Qualified Codes: D72.829 - Elevated white blood cell count, unspecified Ovarian cyst Qualified Codes: N83.202 - Unspecified ovarian cyst, left side ER Course Presents with intractable abdominal pain vomiting. This may be secondary to cyclic vomiting syndrome. Could be from an early gastroenteritis. No evidence of any obstruction or acute abdomen. Her pain is much improved now. She does have a leukocytosis. I suspect this may be secondary to stress response. I see no evidence of any infection. On last admission she had a hemorrhagic cyst on the left. As of her pain, will admit for IV fluids and pain control. I contacted Dr. Yoder for admission. CT/MRI/US Diagnostic Results CT/MRI/US Diagnostic Results : Imaging Test Ordered: CT abdomen and pelvis Impression Read by radiologist. Left adnexal mass. No free air. No obstruction. Last Vital Signs Date Time Temp Pulse Resp B/P (MAP) Pulse Ox O2 Delivery O2 Flow Rate FiO2 06/25/19 01:05 98.2 92 16 124/74 (91) 98 Room Air Status: improved Disposition: ADMITTED INPATIENT Condition: Serious Fabien Shearer MD Jun 25, 2019 01:13
[2019-06-25] MEDS ORDERED: LORazepam Inj 2mg/ml 1ml IV ONE (01:15)
[2019-06-25] MEDS ORDERED: Morphine Sulfate 4mg/ml Inj (IV USE ONLY) IVP ONE ×3 (01:15→02:00)
--- NOTE | 2019-06-25 01:15 | NUR ---
ED Nurse Note: Recieved pt from home, pt wheeled in chair actively vomiting, crying and very restlesss, pt slightly yelling stating she has severe 10/10 sharp pain all over abdoman since 1 hour ago, pt is on menstrual cycle starting today, pt states she at times has pain but never like this, pt is crying and very irritated, pt gowned and immediately placed on cardiac monitoring, iv line placed and labs drawn also, MD at bedside, will resume care as ordered and closely monitor.
[2019-06-25 01:26] LABS: ANION GAP 12 mmol/L (5-15); BLOOD UREA NITROGEN 11 mg/dL (7-18); CARBON DIOXIDE 24 MMOL/L (21-32); CHLORIDE 106 MMOL/L (98-107); CREATININE 0.9 MG/DL (0.55-1.30); POTASSIUM 3.6 MMOL/L (3.5-5.1); SODIUM 142 MMOL/L (136-145)
[2019-06-25 01:31] LABS: ALANINE AMINOTRANSFERASE 18 U/L (12-78); ALBUMIN 3.9 G/DL (3.4-5.0); ALBUMIN/GLOBULIN RATIO 1.1 (1.0-2.7); ALKALINE PHOSPHATASE 58 U/L (46-116); ASPARTATE AMINO TRANSFERASE 16 U/L (15-37); BILIRUBIN,TOTAL 0.4 MG/DL (0.2-1.0)
[2019-06-25 01:37] LABS: HEMATOCRIT 43.6 % (37.0-47.0); HEMOGLOBIN 14.5 G/DL (12.0-16.0); MEAN CORPUSCULAR VOLUME 92 FL (80-99); PLATELET COUNT 288 K/UL (150-450); RED BLOOD COUNT 4.71 M/UL (4.20-5.40); RED CELL DISTRIBUTION WIDTH 11.7 % (11.6-14.8)
[2019-06-25 01:39] LABS: WHITE BLOOD COUNT 24.9 K/UL (4.8-10.8)
[2019-06-25] MEDS ORDERED: Isovue-300 100ml vial INJ PRN (02:00)
--- NOTE | 2019-06-25 02:15 | NUR ---
ED Nurse Note: Pt sleeping, meds given effective after 3 doses of pain meds, vomiting resolved at this time also, pt father remains at bedsdie, iv fluids completed as ordered, pt waiting for imaging, will continue to closely monitor.
[2019-06-25 02:33] LABS: APPEARANCE,URINE CLEAR; BILIRUBIN, URINE NEGATIVE (NEGATIVE); COLOR,URINE PALE YELLOW; GLUCOSE, URINE (UA) NEGATIVE (NEGATIVE); KETONES,URINE NEGATIVE (NEGATIVE); LEUKOCYTE ESTERASE ,URINE NEGATIVE (NEGATIVE); NITRITE,URINE POSITIVE (NEGATIVE); PH,URINE 7 (4.5-8.0); PROTEIN,URINE NEGATIVE (NEGATIVE); UROBILINOGEN,URINE NORMAL MG/DL (0.0-1.0)
--- NOTE | 2019-06-25 03:05 | NUR ---
ED Nurse Note: Pt being taken to imaging for ct-scan, pt sleeping, arouses easily, iv site intact and patent.
[2019-06-25] MEDS ORDERED: PROZAC40 MG ORAL (03:30)
--- NOTE | 2019-06-25 04:00 | NUR ---
ED Nurse Note: Pt assisted with bedpan use, tolerated well, urinated about 600ml, pt reports pain level better at 4/10 and no nausea, no cp, no sob or labored breathing, iv site intact, waiting for ct results and disposition, pt father remains at bedside, will continue to closely monitor.
--- NOTE | 2019-06-25 05:10 | NUR ---
ED Nurse Note: Pt continues to sleep in bed, awakens easily to verbal stimuli, assisted with bedpan use, tolerated well, pt states pain at 1-2/10 and nausea is resolved at this time, iv site intact and patent, no cp, no sob, father at bedside, pt has admission order, MD states to wait for stat-rad report before admitting, no report available yet, nurse report given to daryl Gardner to resume, nad noted.
--- NOTE | 2019-06-25 05:11 | NUR ---
ED Nurse Note: received report from daryl boyer. pt in bed with eyes closed. vss. no acute distress noted. father at bedside.
--- NOTE | 2019-06-25 05:23 | Diagnostic Imaging Report ---
Clinical Indication: Abdominal pain for one day Technique: No oral contrast utilized, per emergency room physician request IV administration nonionic contrast. Venous phase spiral acquisition obtained through the abdomen and pelvis. Multiplanar reconstructions were generated. Total dose length product 533.44 mGycm. CTDIvol(s) 9.84 mGy. Dose reduction achieved using automated exposure control Comparison: 05/18/2019 Findings: Lack of enteric contrast limits assessment of the GI tract. The appendix is only questionably identified. No definite findings to suggest acute appendicitis. There is a small amount of free intraperitoneal fluid adjacent to the tip of the right hepatic lobe. A few somewhat prominent fluid-filled small bowel loops are seen in the left lower quadrant. The distal esophagus, stomach, duodenum are unremarkable.. No evidence of diverticulosis or diverticulitis. A low-attenuation lesion is seen within segment 6 of the liver. This demonstrates a focus of nodular peripheral enhancement which wasn't evident previously. The gallbladder, bile ducts, pancreas, spleen, adrenals, kidneys are unremarkable. No retroperitoneal or mesenteric mass or adenopathy. Previously demonstrated left ovarian cyst is slightly smaller, currently 4.4 x 2.5 cm in diameter, previously 4.9 x 4. Uterus and right ovary are unremarkable. The bladder is distended The included lung bases demonstrate diffuse very mild groundglass opacity. The bones are unremarkable. Impression: Nonspecific mild fluid-filled left lower quadrant small bowel loops,. Indicate mild ileus or enteritis changes. Trace free intraperitoneal fluid Slightly decreased size left ovarian cyst Previously demonstrated subcentimeter right lobe hypodense lesion again demonstrated, too small to characterize. On current exam, peripheral nodular enhancement raises the possibility that this is a small hemangioma; this correlates with findings reported on prior sonogram of 05/17/2019 This agrees with the preliminary interpretation provided overnight by [email or web address] teleradiology service. The CT scanner at [facility] is accredited by the [employer] and the scans are performed using protocols designed to limit radiation exposure to as low as reasonably achievable to attain images of sufficient resolution adequate for diagnostic evaluation.
--- NOTE | 2019-06-25 06:00 | NUR ---
ER DISCHARGE NOTE: pt brought up to [facility] via gurney accompanied by RN and geothermal technician in stable condition. Report given to LAWSON Nogueira. belonging list signed. Pt father at bedside. No acute distress is noted.
--- NOTE | 2019-06-25 06:06 | NUR ---
NURSE NOTES: Received patient via father read at the bedside. Dr Yoder paged for admission orders.
[2019-06-25] MEDS ORDERED: Morphine Sulfate 4mg/ml Inj (IV USE ONLY) IVP PRN (07:15)
[2019-06-25] MEDS ORDERED: Morphine Sulfate 2mg/ml Inj(IV/IM USE ONLY) IVP PRN (07:15)
--- NOTE | 2019-06-25 07:15 | NUR ---
HAND-OFF: Report given to LASWON Allen. Admission orders received from Dr Yoder, endorsed to AM nurse.
--- NOTE | 2019-06-25 08:04 | NUR ---
NURSE NOTES: Received report from LAWSON Wright. The patient is resting on the bed without acute distress or shortness of breath. The patient's bed in the lowest position, call light in reach, and fall and aspiration precaution reinforced. IV site on L wrist 20G is intact and patent. Will continue plan of care.
[2019-06-25] MEDS: D5 1/2NS 1,000 ML IV SCH ×2 (08:24→20:33)
--- NOTE | 2019-06-25 11:11 | NUR ---
*-* NO INSURANCE INFORMATION IN THE BAR UNABLE TO SEND CLINICALS OR REVIEWS *-*
--- NOTE | 2019-06-25 11:20 | NUR ---
NURSE NOTES: Notified to Dr. Yoder and Dr. William regarding the patient's lower abdominal pain. Also notified CT of abdomen and pelvis result, elevated WBC, and positive nitrite on urine test. Will continue plan of care for the patient. Will carry out the order as soon as receives it.
--- NOTE | 2019-06-25 12:37 | NUR ---
NURSE NOTES: Per patient, her pain got somewhat relieved by the hot pack. Will continue plan of care. Will carry out the order as soon as receives from the physician.
--- NOTE | 2019-06-25 13:31 | Consultation ---
History of Present Illness General Date patient seen: Jun 25, 2019 Chief Complaint: Abdominal Pain Present Illness HPI 29-year-old female with history of cyclic vomiting syndrome presented to ER with complaint of severe abdominal pain with nausea and vomiting with an acute onset. 30 minutes to an hour prior to presentation. She woke up with it. Pain is severe 10 out of 10. Vomiting is nonbloody nonbilious. No diarrhea. pt is admitted b/o intractable abdominal pain. Allergies: Coded Allergies: No Known Allergies (Unverified , 06/25/19) Medication History Scheduled Fluoxetine Hcl* (Prozac*), 40 MG ORAL DAILY, (Reported) Fluoxetine Hcl* (Prozac*), 60 MG ORAL DAILY, (Reported) No Known Medications* (NKM - No Known Medications*), 0 ., (Reported) Quetiapine Fumarate* (Seroquel*), 25 MG ORAL DAILY, (Reported) Scheduled PRN Ondansetron (Zofran), 4 MG ORAL Q6H PRN for Nausea & Vomiting Patient History Healthcare decision maker Resuscitation status Advanced Directive on File Past Medical/Surgical History Past Medical/Surgical History: (1) Cyclic vomiting syndrome (2) Ovarian cyst Review of Systems All Other Systems: negative except mentioned in HPI Physical Exam General Appearance: WD/WN Lines, tubes and drains: peripheral HEENT: normocephalic, atraumatic Neck: non-tender, normal alignment Respiratory/Chest: chest wall non-tender, lungs clear Breasts: no masses Cardiovascular/Chest: normal peripheral pulses Abdomen: normal bowel sounds, non tender Genitourinary/Rectal: normal genital exam Extremities: normal range of motion Skin Exam: normal pigmentation Neurologic: private investigator II-XII grossly normal Last 24 Hour Vital Signs Date Time Temp Pulse Resp B/P (MAP) Pulse Ox O2 Delivery O2 Flow Rate FiO2 06/25/19 09:00 Room Air 06/25/19 08:00 98.1 87 20 118/78 (91) 97 06/25/19 06:15 98.4 83 20 105/65 (78) 98 06/25/19 06:08 Room Air 06/25/19 06:00 98.0 84 17 118/84 100 Room Air 06/25/19 05:00 98.3 74 16 126/88 98 Room Air 06/25/19 02:41 98.3 06/25/19 02:00 98.3 88 16 111/68 98 Room Air 06/25/19 01:50 98.3 06/25/19 01:50 98.3 06/25/19 01:15 92 16 Room Air 06/25/19 01:05 98.2 92 16 124/74 (91) 98 Room Air Intake and Output 06/24/19 06/25/19 18:59 06:59 Output Total 300 ml Balance -300 ml Output Urine Total 300 ml Laboratory Tests Test 06/25/19 01:05 06/25/19 02:00 White Blood Count 24.9 K/UL (4.8-10.8) *H Red Blood Count 4.71 M/UL (4.20-5.40) Hemoglobin 14.5 G/DL (12.0-16.0) Hematocrit 43.6 % (37.0-47.0) Mean Corpuscular Volume 92 FL (80-99) Mean Corpuscular Hemoglobin 30.8 PG (27.0-31.0) Mean Corpuscular Hemoglobin Concent 33.3 G/DL (32.0-36.0) Red Cell Distribution Width 11.7 % (11.6-14.8) Platelet Count 288 K/UL (150-450) Mean Platelet Volume 6.0 FL (6.5-10.1) L Neutrophils (%) (Auto) % (45.0-75.0) Lymphocytes (%) (Auto) % (20.0-45.0) Monocytes (%) (Auto) % (1.0-10.0) Eosinophils (%) (Auto) % (0.0-3.0) Basophils (%) (Auto) % (0.0-2.0) Differential Total Cells Counted 100 Neutrophils % (Manual) 70 % (45-75) Lymphocytes % (Manual) 20 % (20-45) Monocytes % (Manual) 10 % (1-10) Eosinophils % (Manual) 0 % (0-3) Basophils % (Manual) 0 % (0-2) Band Neutrophils 0 % (0-8) Platelet Estimate Adequate Platelet Morphology Normal Red Blood Cell Morphology Normal Sodium Level 142 MMOL/L (136-145) Potassium Level 3.6 MMOL/L (3.5-5.1) Chloride Level 106 MMOL/L (98-107) Carbon Dioxide Level 24 MMOL/L (21-32) Anion Gap 12 mmol/L (5-15) Blood Urea Nitrogen 11 mg/dL (7-18) Creatinine 0.9 MG/DL (0.55-1.30) Estimat Glomerular Filtration Rate > 60 mL/min (>60) Glucose Level 125 MG/DL (74-106) H Calcium Level 9.0 MG/DL (8.5-10.1) Total Bilirubin 0.4 MG/DL (0.2-1.0) Aspartate Amino Transf (AST/SGOT) 16 U/L (15-37) Alanine Aminotransferase (ALT/SGPT) 18 U/L (12-78) Alkaline Phosphatase 58 U/L (46-116) Total Protein 7.3 G/DL (6.4-8.2) Albumin 3.9 G/DL (3.4-5.0) Globulin 3.4 g/dL Albumin/Globulin Ratio 1.1 (1.0-2.7) Lipase 175 U/L (73-393) Urine Color Pale yellow Urine Appearance Clear Urine pH 7 (4.5-8.0) Urine Specific [place] 1.010 (1.005-1.035) Urine Protein Negative (NEGATIVE) Urine Glucose (UA) Negative (NEGATIVE) Urine Ketones Negative (NEGATIVE) Urine Blood 1+ (NEGATIVE) H Urine Nitrite Positive (NEGATIVE) H Urine Bilirubin Negative (NEGATIVE) Urine Urobilinogen Normal MG/DL (0.0-1.0) Urine Leukocyte Esterase Negative (NEGATIVE) Urine RBC 0-2 /HPF (0 - 2) Urine WBC 0-2 /HPF (0 - 2) Urine Squamous Epithelial Cells Few /LPF (NONE/OCC) Urine Bacteria Few /HPF (NONE) Urine HCG, Qualitative Negative (NEGATIVE) Height (Feet): 5 Height (Inches): 4.00 Weight (Pounds): 100 Medications Current Medications Medications (Trade) Dose Ordered Sig/Memo Route PRN Reason Start Time Stop Time Status Last Admin Dose Admin Dextrose/Sodium Chloride 1,000 ml @ 75 mls/hr [id number] IV 06/25/19 08:00 07/25/19 07:59 06/25/19 08:24 Fluoxetine HCl (PROzac) 40 mg DAILY ORAL 06/25/19 09:00 07/25/19 08:59 06/25/19 08:24 Iopamidol (Isovue-300 100ml) 100 ml NOW PRN INJ Radiology Procedure 06/25/19 02:00 Lorazepam (Ativan 2mg/ml 1ml) 0.5 mg Q4H PRN IV For Anxiety 06/25/19 07:15 07/02/19 07:14 Morphine Sulfate (Morphine Sulfate) 2 mg Q4H PRN IVP Moderate Pain (Pain Scale 4-6) 06/25/19 07:15 07/02/19 07:14 06/25/19 08:25 Morphine Sulfate (Morphine Sulfate) 4 mg Q4H PRN IVP Severe Pain (Pain Scale 7-10) 06/25/19 07:15 07/02/19 07:14 Ondansetron HCl (Zofran) 4 mg Q4H PRN IVP Nausea & Vomiting 06/25/19 07:15 07/25/19 07:14 Quetiapine Fumarate (SEROquel) 25 mg DAILY ORAL 06/25/19 09:00 07/25/19 08:59 06/25/19 08:24 Assessment/Plan Problem List: (1) Pelvic inflammatory disease, female ICD Codes: N73.9 - Female pelvic inflammatory disease, unspecified SNOMED: 375534966 (2) Intractable nausea and vomiting ICD Codes: R11.2 - Nausea with vomiting, unspecified SNOMED: 634724748 (3) Cyclic vomiting syndrome ICD Codes: G43.A0 - Cyclical vomiting, not intractable SNOMED: 95684102 (4) Ovarian cyst ICD Codes: N83.209 - Unspecified ovarian cyst, unspecified side SNOMED: 83297443, [id number] Qualifiers: Qualified Codes: N83.202 - Unspecified ovarian cyst, left side Assessment/Plan: NPO iv fluids iv abx symptomatic treatment dvt prophylaxis. Mireya William MD Jun 25, 2019 13:31
[2019-06-25] MEDS: Morphine Sulfate 4mg/ml Inj (IV USE ONLY) IVP PRN ×3 (13:36→22:15)
--- NOTE | 2019-06-25 13:41 | Consultation ---
History of Present Illness General Date patient seen: Jun 25, 2019 Chief Complaint: Abdominal Pain Present Illness HPI 29 y/o F with hx of cyclic vomiting syndrome presented to ED on 06/25 with 30min - 1hr prior to admission onset of severe abd pain, nausea and vomiting. Pain described as 10/10 intensity, vomiting is nonbloody, nonbilious. Denied diarrhea, urinary symptoms LMP: 06/24/19 Allergies: Coded Allergies: No Known Allergies (Unverified , 06/25/19) Medication History Scheduled Fluoxetine Hcl* (Prozac*), 40 MG ORAL DAILY, (Reported) Fluoxetine Hcl* (Prozac*), 60 MG ORAL DAILY, (Reported) No Known Medications* (NKM - No Known Medications*), 0 ., (Reported) Quetiapine Fumarate* (Seroquel*), 25 MG ORAL DAILY, (Reported) Scheduled PRN Ondansetron (Zofran), 4 MG ORAL Q6H PRN for Nausea & Vomiting Patient History Healthcare decision maker Resuscitation status Advanced Directive on File Patient History Narrative Pmhx: as above Shx: Denies: smoking Fhx: non contributory Review of Systems All Other Systems: negative except mentioned in HPI Physical Exam Physical Exam Narrative General Appearance: WD/WN Lines, tubes and drains: peripheral HEENT: normocephalic, atraumatic Neck: non-tender, normal alignment Respiratory/Chest: chest wall non-tender, lungs clear Cardiovascular/Chest: normal peripheral pulses Abdomen: normal bowel sounds, non tender Extremities: normal range of motion Skin Exam: normal pigmentation Neurologic: physician in private practice II-XII grossly normal Last 24 Hour Vital Signs Date Time Temp Pulse Resp B/P (MAP) Pulse Ox O2 Delivery O2 Flow Rate FiO2 06/25/19 09:00 Room Air 06/25/19 08:00 98.1 87 20 118/78 (91) 97 06/25/19 06:15 98.4 83 20 105/65 (78) 98 06/25/19 06:08 Room Air 06/25/19 06:00 98.0 84 17 118/84 100 Room Air 06/25/19 05:00 98.3 74 16 126/88 98 Room Air 06/25/19 02:41 98.3 06/25/19 02:00 98.3 88 16 111/68 98 Room Air 06/25/19 01:50 98.3 9/5/19 01:50 98.3 06/25/19 01:15 92 16 Room Air 06/25/19 01:05 98.2 92 16 124/74 (91) 98 Room Air Intake and Output 06/24/19 06/25/19 19:00 07:00 Output Total 300 ml Balance -300 ml Output Urine Total 300 ml Laboratory Tests Test 06/25/19 01:05 06/25/19 02:00 White Blood Count 24.9 K/UL (4.8-10.8) *H Red Blood Count 4.71 M/UL (4.20-5.40) Hemoglobin 14.5 G/DL (12.0-16.0) Hematocrit 43.6 % (37.0-47.0) Mean Corpuscular Volume 92 FL (80-99) Mean Corpuscular Hemoglobin 30.8 PG (27.0-31.0) Mean Corpuscular Hemoglobin Concent 33.3 G/DL (32.0-36.0) Red Cell Distribution Width 11.7 % (11.6-14.8) Platelet Count 288 K/UL (150-450) Mean Platelet Volume 6.0 FL (6.5-10.1) L Neutrophils (%) (Auto) % (45.0-75.0) Lymphocytes (%) (Auto) % (20.0-45.0) Monocytes (%) (Auto) % (1.0-10.0) Eosinophils (%) (Auto) % (0.0-3.0) Basophils (%) (Auto) % (0.0-2.0) Differential Total Cells Counted 100 Neutrophils % (Manual) 70 % (45-75) Lymphocytes % (Manual) 20 % (20-45) Monocytes % (Manual) 10 % (1-10) Eosinophils % (Manual) 0 % (0-3) Basophils % (Manual) 0 % (0-2) Band Neutrophils 0 % (0-8) Platelet Estimate Adequate Platelet Morphology Normal Red Blood Cell Morphology Normal Sodium Level 142 MMOL/L (136-145) Potassium Level 3.6 MMOL/L (3.5-5.1) Chloride Level 106 MMOL/L (98-107) Carbon Dioxide Level 24 MMOL/L (21-32) Anion Gap 12 mmol/L (5-15) Blood Urea Nitrogen 11 mg/dL (7-18) Creatinine 0.9 MG/DL (0.55-1.30) Estimat Glomerular Filtration Rate > 60 mL/min (>60) Glucose Level 125 MG/DL (74-106) H Calcium Level 9.0 MG/DL (8.5-10.1) Total Bilirubin 0.4 MG/DL (0.2-1.0) Aspartate Amino Transf (AST/SGOT) 16 U/L (15-37) Alanine Aminotransferase (ALT/SGPT) 18 U/L (12-78) Alkaline Phosphatase 58 U/L (46-116) Total Protein 7.3 G/DL (6.4-8.2) Albumin 3.9 G/DL (3.4-5.0) Globulin 3.4 g/dL Albumin/Globulin Ratio 1.1 (1.0-2.7) Lipase 175 U/L (73-393) Urine Color Pale yellow Urine Appearance Clear Urine pH 7 (4.5-8.0) Urine Specific [place] 1.010 (1.005-1.035) Urine Protein Negative (NEGATIVE) Urine Glucose (UA) Negative (NEGATIVE) Urine Ketones Negative (NEGATIVE) Urine Blood 1+ (NEGATIVE) H Urine Nitrite Positive (NEGATIVE) H Urine Bilirubin Negative (NEGATIVE) Urine Urobilinogen Normal MG/DL (0.0-1.0) Urine Leukocyte Esterase Negative (NEGATIVE) Urine RBC 0-2 /HPF (0 - 2) Urine WBC 0-2 /HPF (0 - 2) Urine Squamous Epithelial Cells Few /LPF (NONE/OCC) Urine Bacteria Few /HPF (NONE) Urine HCG, Qualitative Negative (NEGATIVE) Height (Feet): 5 Height (Inches): 4.00 Weight (Pounds): 100 Medications Current Medications Medications (Trade) Dose Ordered Sig/Memo Route PRN Reason Start Time Stop Time Status Last Admin Dose Admin Dextrose/Sodium Chloride 1,000 ml @ 75 mls/hr [id number] IV 06/25/19 08:00 07/25/19 07:59 06/25/19 08:24 Fluoxetine HCl (PROzac) 40 mg DAILY ORAL 06/25/19 09:00 07/25/19 08:59 06/25/19 08:24 Iopamidol (Isovue-300 100ml) 100 ml NOW PRN INJ Radiology Procedure 06/25/19 02:00 Lorazepam (Ativan 2mg/ml 1ml) 0.5 mg Q4H PRN IV For Anxiety 06/25/19 07:15 07/02/19 07:14 Morphine Sulfate (Morphine Sulfate) 4 mg Q4H PRN IVP Moderate Pain (Pain Scale 4-6) 06/25/19 14:00 07/02/19 13:59 Morphine Sulfate (Morphine Sulfate) 6 mg Q4H PRN IVP Severe Pain (Pain Scale 7-10) 06/25/19 14:00 07/02/19 13:59 Ondansetron HCl (Zofran) 4 mg Q4H PRN IVP Nausea & Vomiting 06/25/19 07:15 07/25/19 07:14 Quetiapine Fumarate (SEROquel) 25 mg DAILY ORAL 06/25/19 09:00 07/25/19 08:59 06/25/19 08:24 Assessment/Plan Assessment/Plan: Abx: None Assessment: Acute severe abdominal pain, nausea/vomiting- r/o PID, of note patient is currently on her period- r/o hemorrhagic ovarian cyst -CT abd/p: Nonspecific mild fluid-filled left lower quadrant small bowel loops ,. Indicate mild ileus or enteritis changes. Trace free intraperitoneal fluid. Slightly decreased size left ovarian cyst. Previously demonstrated subcentimeter right lobe hypodense lesion again demonstrated, too small to characterize. On current exam, peripheral nodular enhancement raises the possibility that this is a small hemangioma; this correlates with findings reported on prior sonogram of 05/17/2019 -u/a no pyuria, nit +, leuk neg Low grade fever Leukocytosis Cyclic vomiting syndrome Plan: -Start empiric cefoxitin and PO doxycycline -f/u cx -Monitor CBC/CMP, temperatures -GC/CL, RPR, HIV ab screen -Pelvis/transvaginal US Thank you for this consultation. Will continue to follow along with you. Discussed with Tracy Reeves M.D. Jun 25, 2019 13:41
--- NOTE | 2019-06-25 14:15 | NUR ---
NURSE NOTES: Notified Dr. William regarding mild grade fever. Received order for Tylenol. Will carry out the order now. Will continue plan of care.
--- NOTE | 2019-06-25 14:42 | NUR ---
RD ASSESSMENT & RECOMMENDATIONS SEE CARE ACTIVITY FOR COMPLETE ASSESSMENT DAILY ESTIMATED NEEDS: Needs based on General 53kg 25-30 kcals/kg 1078-3798 total kcals .8-1.2 g protein/kg 66-64 g total protein 25-30 mL/kg 2393-7431 total fluid mLs NUTRITION DIAGNOSIS: Altered GI fxn r/t cyclic vomiting syndrome as evidenced by pt adm w/ intractable N/V. CURRENT DIET:CLD PO DIET RECOMMENDATIONS: CLD as per MD + Ensure Clear w/ meals ADDITIONAL RECOMMENDATIONS: 1) Obtain a standing weight as able 2) Add Ensure Clear TID w/ CLD 3) Monitor lytes daily w/ emesis , replete as needed 4) Monitor tolerance to diet
[2019-06-25] MEDS ORDERED: Doxycycline Monohydrate 100mg ORAL SCH (15:39)
[2019-06-25] MEDS ORDERED: cefOXitin 2gm Inj IVP SCH (15:45)
--- NOTE | 2019-06-25 17:45 | NUR ---
CASE MANAGEMENT: INITIAL REVIEW 29 YO F PRESENTED TO ED FROM HOME CC: ABD PAIN PMHx: CYCLINE VOMITING SYNDROME SI:PID. ABD PAIN. NAUSEA. T 98.2 HR 92 RR 16 B/P 124/74 SATS 98% ON RA WBC 24.9 GLU 125 IS: ZOFRAN IV X1 MORPHINE IV X1 NS BOLUS X1 ATIVAN IV X1 MORPHINE IV X1 CT ABD/PELVIS Left adnexal mass. No free air. No obstruction. PATIENT ADMITTED TO MED/SURG 06/25/2019 @ 0303 DCP: PATIENT TO BE DISCHARGED TO HOME ONCE MEDICALLY CLEARED. Addendum: 06/25/19 at 1753 by Yulia Ye CM INTERQUAL MET
[2019-06-25] MEDS: cefOXitin 2gm in D5W 110ml IVPB SCH (18:11)
--- NOTE | 2019-06-25 18:13 | History & Physical ---
History and Physical History & Physicial Dictated for Int Med-DR Yoder no. [id number]. Az Pearson MD Jun 25, 2019 18:13
--- NOTE | 2019-06-25 18:31 | NUR ---
NURSE NOTES: Dr. Pearson at the bedside for assessment of the patient. Notified Dr. Pearson regarding the patient's pain, CT of abdomen and pelvis result, elevated WBC, and mild grade fever. The patient still has pain on lower abdomen area. Informed the patient that urine collection should be done for CT and GC. Will continue plan of care.
--- NOTE | 2019-06-25 19:46 | NUR ---
HAND-OFF: Report given to LAWSON Altamirano. The patient is resting on the bed without acute distress or shortness of breath. The patient's bed in the lowest position, call light in reach, and fall and aspiration precaution reinforced. IV is intact and patent. The patient just collected urine sample for CT and GC and endorsed to Evelia to put down to the lab. Endorsed plan of care.
--- NOTE | 2019-06-25 19:51 | NUR ---
NURSE NOTES: PATIENT IN BED, AOX4. IV IN PLACE, RUNNING IV FLUIDS. FAMILY AT BEDSIDE. NO S/S DISTRESS NOTED. BED IN LOWEST POSITION, CALL LIGHT WITHIN REACH. WILL CONTINUE TO MONITOR.
--- NOTE | 2019-06-25 20:30 | History and Physical Report ---
DATE OF ADMISSION: 06/25/2019 CHIEF COMPLAINT: The patient is a 29-year-old female, who presents with a chief complaint of abdominal pain, nausea, and vomiting. HISTORY OF PRESENT ILLNESS: It began one day prior to admission. The patient began to experience nausea and vomiting. The patient also complains of generalized abdominal pain. Of note, the patient was admitted with same symptoms in April of 2019. Please see history and physical and discharge summary dictated at that time. The patient presented to [place] emergency room. A CT scan of the abdomen and pelvis was consistent with a left ovarian cyst. The patient is admitted with abdominal pain, nausea, vomiting, and left ovarian cyst. REVIEW OF SYSTEMS: CONSTITUTIONAL: The patient denies weight loss or weight gain. The patient denies fevers or chills. HEENT: The patient denies ear or throat pain. The patient denies headache. CARDIOVASCULAR: The patient denies palpitations or chest pain. CHEST: The patient denies wheeze or shortness of breath. ABDOMINAL: The patient complains of generalized sharp abdominal pain. The patient complains of nausea and vomiting as above. The patient denies diarrhea or constipation. GENITOURINARY: The patient denies dysuria or increased frequency of urination. NEUROMUSCULAR: The patient denies seizures or generalized weakness. PAST MEDICAL HISTORY: The patient denies. Last menstrual period stated to be June 24, 2019. PAST SURGICAL HISTORY: The patient denies. CURRENT MEDICATIONS: 1. Prozac 40 mg p.o. daily. 2. Seroquel 25 mg p.o. daily. ALLERGIES: Tetanus vaccination. SOCIAL HISTORY: The patient is single and lives alone. The patient admits to tobacco use of 1/2 pack per day. The patient denies alcohol use. PHYSICAL EXAMINATION: VITAL SIGNS: Temperature 98, respirations 17, pulse 84, and blood pressure 118/84. GENERAL: The patient is a well-developed and well-nourished female, who is in moderate pain. HEENT: Eyes, pupils are equal and responsive to light and accommodation. Extraocular movements are intact. NECK: Supple without lymphadenopathy. CHEST: Lungs are clear to auscultation bilaterally without wheezes or rales. CARDIOVASCULAR: Regular rhythm and rate. S1 and S2 are normal without murmurs, rubs, or gallops. ABDOMEN: Soft, diffusely tender with decreased bowel sounds. No evidence of hepatosplenomegaly or rebound noted. There is some voluntary guarding noted. EXTREMITIES: Negative for clubbing, cyanosis, or edema. RECTAL/GENITAL: Not performed. NEUROLOGICAL: Cranial nerves II through XII are grossly intact without focal deficits. Motor strength is 5/5 bilaterally. Deep tendon reflexes are 2+ plantar. LABORATORY STUDIES: WBC 24.9, hemoglobin 14.5, hematocrit 43.6, and platelets 280,000. Sodium 142, potassium 3.6, chloride 106, CO2 24, BUN 11, creatinine 0.9, and glucose 125. ASSESSMENT: This is a 29-year-old female. 1. Left ovarian cyst. 2. Abdominal pain. 3. Nausea and vomiting. 4. Leukocytosis. TREATMENT: 1. Left ovarian cyst. A WILDLIFE REFUGE SPECIALIST consultation has been obtained with Dr. Tim. We will follow recommendations of Gynecology. 2. Abdominal pain. This may be secondary to ovarian cyst as above. A Gastroenterology consultation has been obtained with Dr. Thuan Donis. 3. Nausea and vomiting. 4. Leukocytosis. An Infectious Disease consultation has been obtained with Dr. Silver. The patient has been started empirically on cefoxitin and doxycycline for possible pelvic inflammatory disease. Az Pearson M.D. DR: JORGE A JOB#: [id number] CC:
[2019-06-25] MEDS: Doxycycline Monohydrate 100mg ORAL SCH (22:15)
[2019-06-26] VITALS: BP 105/74
[2019-06-26] MEDS: cefOXitin 2gm in D5W 110ml IVPB SCH ×4 (00:24→17:12)
[2019-06-26] MEDS: Morphine Sulfate 10mg/ml Inj IVP PRN ×5 (02:06→22:31)
[2019-06-26 04:27] VITALS: BP 94/57
[2019-06-26 05:53] VITALS: BP 111/82
[2019-06-26] MEDS: Morphine Sulfate 4mg/ml Inj (IV USE ONLY) IVP PRN (06:15)
--- NOTE | 2019-06-26 06:15 | NUR ---
NURSE NOTES: PATIENT HAD COMPLAINT SOF PAIN THROUGHOUT THE NIGHT. MORPHINE PRN WAS GIVEN ORDERED. WILL CONTINUE TO MONITOR.
[2019-06-26 06:31] LABS: BASOPHILS % (AUTO) 0.3 % (0.0-2.0); EOSINOPHILS % (AUTO) 0.5 % (0.0-3.0); HEMATOCRIT 38.3 % (37.0-47.0); HEMOGLOBIN 12.7 G/DL (12.0-16.0); LYMPHOCYTES % (AUTO) 10.3 % (20.0-45.0); MEAN CORPUSCULAR VOLUME 94 FL (80-99); MONOCYTES % (AUTO) 5.9 % (1.0-10.0); NEUTROPHILS % (AUTO) 83.1 % (45.0-75.0); PLATELET COUNT 184 K/UL (150-450); RED CELL DISTRIBUTION WIDTH 11.8 % (11.6-14.8); WHITE BLOOD COUNT 13.8 K/UL (4.8-10.8)
[2019-06-26 06:42] LABS: ANION GAP 8 mmol/L (5-15); BLOOD UREA NITROGEN 4 mg/dL (7-18); CALCIUM 8.4 MG/DL (8.5-10.1); CARBON DIOXIDE 27 MMOL/L (21-32); CHLORIDE 106 MMOL/L (98-107); CREATININE 0.7 MG/DL (0.55-1.30); PHOSPHORUS 2.2 MG/DL (2.5-4.9); POTASSIUM 3.4 MMOL/L (3.5-5.1); SODIUM 141 MMOL/L (136-145)
[2019-06-26 07:19] VITALS: BP 130/79
--- NOTE | 2019-06-26 07:23 | NUR ---
HAND-OFF: Report given to AMIRA CURIEL RN.
--- NOTE | 2019-06-26 07:33 | NUR ---
NURSE NOTES: Received report from LAWSON Altamirano. Pt in ambulatory, awake, talkative, mild pain mid abdomen, discussed plan of care, no apparent distress noted, bed in lowest position, call light within reach.
--- NOTE | 2019-06-26 08:37 | NUR ---
NURSE NOTES: Left message for Dr. Pearson regarding K 3.4, Ph 2.2, Mg 1.7 Addendum: 06/26/19 at 0911 by AMIRA CURIEL RN NURSE NOTES: Notified Dr. William of same lab results recommended replacement
[2019-06-26] MEDS: Doxycycline Monohydrate 100mg ORAL SCH ×2 (09:17→22:31)
--- NOTE | 2019-06-26 10:02 | NUR ---
*-* NO INSURANCE INFORMATION IN THE BAR UABLE TO SEND CLINICALS OR REVIEWS *-*
[2019-06-26] MEDS: D5 1/2NS 1,000 ML IV SCH (10:30)
--- NOTE | 2019-06-26 10:53 | Diagnostic Imaging Report ---
Indication:Lower abdominal and pelvic pain Technique: Grayscale and duplex Doppler imaging of the pelvis performed utilizing a transabdominal and endovaginal scan. Comparison: None Findings: The size, contour, and configuration of the uterus is within normal limits. The endometrium is uniformly echogenic and normal in thickness. Endometrium is 9 mm. Uterus measures 8.4 x 6.2 x 3.8 cm. The ovaries appear normal bilaterally with good dopplerable blood flow.. There is a prominent 3.8 cm hemorrhagic cyst with a fluid fluid level demonstrated within the left ovary There is no significant free fluid identified. Left ovary measures 7 x 5.8 x 2.8 cm. Right ovary 3 x 3.3 x 1.6 cm. IMPRESSION: Large left hemorrhagic cyst. Follow-up recommended in 6 weeks.
[2019-06-26 12:00] VITALS: BP 122/88
--- NOTE | 2019-06-26 12:44 | Infectious Diseases Prog Note ---
Assessment/Plan Assessment/Plan Abx: None Assessment: Acute severe abdominal pain, nausea/vomiting- seems likely to Large left hemorrhagic cyst- r/o PID given fever and leukocytosis, although these could been reactive to former -Transvaginal US: Large left hemorrhagic cyst. Follow-up recommended in 6 weeks. -CT abd/p: Nonspecific mild fluid-filled left lower quadrant small bowel loops ,. Indicate mild ileus or enteritis changes. Trace free intraperitoneal fluid. Slightly decreased size left ovarian cyst. Previously demonstrated subcentimeter right lobe hypodense lesion again demonstrated, too small to characterize. On current exam, peripheral nodular enhancement raises the possibility that this is a small hemangioma; this correlates with findings reported on prior sonogram of 05/17/2019 -u/a no pyuria, nit +, leuk neg -HIV ab screen neg Low grade fever; improving Leukocytosis; improving Cyclic vomiting syndrome Plan: -Continue empiric cefoxitin and PO doxycycline #2 for now -f/u cx -Monitor CBC/CMP, temperatures -f/u GC/CL, RPR -OB-obstetrics and gynecology professor eval Thank you for this consultation. Will continue to follow along with you. Discussed with RN Subjective Allergies: Coded Allergies: No Known Allergies (Unverified , 06/25/19) Objective Vital Signs Last 24 Hour Vital Signs Date Time Temp Pulse Resp B/P (MAP) Pulse Ox O2 Delivery O2 Flow Rate FiO2 06/26/19 12:00 97.9 60 16 122/88 (99) 98 06/26/19 10:55 98.1 06/26/19 07:56 Room Air 06/26/19 07:19 98.1 72 16 130/79 (96) 99 06/26/19 06:45 98.1 06/26/19 05:53 72 111/82 (92) 06/26/19 04:27 97.8 72 20 94/57 (69) 94 06/26/19 00:00 98.9 70 20 105/74 (84) 98 06/25/19 21:25 Room Air 06/25/19 20:00 97.6 89 20 119/79 (92) 94 06/25/19 16:00 99.7 68 20 113/66 (82) 99 Height (Feet): 5 Height (Inches): 4.00 Weight (Pounds): 116 Objective General Appearance: WD/WN Lines, tubes and drains: peripheral HEENT: normocephalic, atraumatic Neck: non-tender, normal alignment Respiratory/Chest: chest wall non-tender, lungs clear Cardiovascular/Chest: normal peripheral pulses Abdomen: normal bowel sounds, non tender Extremities: normal range of motion Skin Exam: normal pigmentation Neurologic: net developer with wcf II-XII grossly normal Laboratory Tests Test 06/25/19 19:35 06/26/19 05:25 Chlamydia trachomatis RNA Pending Neisseria gonorrhoeae RNA Pending White Blood Count 13.8 K/UL (4.8-10.8) H Red Blood Count 4.10 M/UL (4.20-5.40) L Hemoglobin 12.7 G/DL (12.0-16.0) Hematocrit 38.3 % (37.0-47.0) Mean Corpuscular Volume 94 FL (80-99) Mean Corpuscular Hemoglobin 31.0 PG (27.0-31.0) Mean Corpuscular Hemoglobin Concent 33.1 G/DL (32.0-36.0) Red Cell Distribution Width 11.8 % (11.6-14.8) Platelet Count 184 K/UL (150-450) Mean Platelet Volume 5.9 FL (6.5-10.1) L Neutrophils (%) (Auto) 83.1 % (45.0-75.0) H Lymphocytes (%) (Auto) 10.3 % (20.0-45.0) L Monocytes (%) (Auto) 5.9 % (1.0-10.0) Eosinophils (%) (Auto) 0.5 % (0.0-3.0) Basophils (%) (Auto) 0.3 % (0.0-2.0) Sodium Level 141 MMOL/L (136-145) Potassium Level 3.4 MMOL/L (3.5-5.1) L Chloride Level 106 MMOL/L (98-107) Carbon Dioxide Level 27 MMOL/L (21-32) Anion Gap 8 mmol/L (5-15) Blood Urea Nitrogen 4 mg/dL (7-18) L Creatinine 0.7 MG/DL (0.55-1.30) Estimat Glomerular Filtration Rate > 60 mL/min (>60) Glucose Level 104 MG/DL (74-106) Calcium Level 8.4 MG/DL (8.5-10.1) L Phosphorus Level 2.2 MG/DL (2.5-4.9) L Magnesium Level 1.7 MG/DL (1.8-2.4) L Rapid Plasma Reagin Pending HIV (1&2) Antibody Rapid Negative (NEGATIVE) Current Medications Medications (Trade) Dose Ordered Sig/Memo Route PRN Reason Start Time Stop Time Status Last Admin Dose Admin Acetaminophen (Tylenol) 650 mg Q4H PRN ORAL Mild Pain/Temp > 100.5 06/25/19 14:18 07/25/19 14:17 Cefoxitin Sodium 2 gm/Dextrose 110 ml @ 220 mls/hr Q6HR IVPB 06/25/19 18:00 07/02/19 17:59 06/26/19 11:39 Dextrose/Sodium Chloride 1,000 ml @ 75 mls/hr [id number] IV 06/25/19 08:00 07/25/19 07:59 06/26/19 10:30 Doxycycline Monohydrate (Doxycycline Monohydrate) 100 mg EVERY 12 HOURS ORAL 06/25/19 23:00 07/02/19 22:59 06/26/19 09:17 Fluoxetine HCl (PROzac) 40 mg DAILY ORAL 06/25/19 09:00 07/25/19 08:59 06/26/19 09:17 Iopamidol (Isovue-300 100ml) 100 ml NOW PRN INJ Radiology Procedure 06/25/19 02:00 Lorazepam (Ativan 2mg/ml 1ml) 0.5 mg Q4H PRN IV For Anxiety 06/25/19 07:15 07/02/19 07:14 Morphine Sulfate (Morphine Sulfate) 4 mg Q4H PRN IVP Moderate Pain (Pain Scale 4-6) 06/25/19 14:00 07/02/19 13:59 06/26/19 06:15 Morphine Sulfate (Morphine Sulfate) 6 mg Q4H PRN IVP Severe Pain (Pain Scale 7-10) 06/25/19 14:00 07/02/19 13:59 06/26/19 10:25 Ondansetron HCl (Zofran) 4 mg Q4H PRN IVP Nausea & Vomiting 06/25/19 07:15 07/25/19 07:14 06/26/19 10:25 Quetiapine Fumarate (SEROquel) 25 mg DAILY ORAL 06/25/19 09:00 07/25/19 08:59 06/26/19 09:17 Tracy Silver M.D. Jun 26, 2019 12:44
--- NOTE | 2019-06-26 14:02 | Pulmonology Progress Note ---
Assessment/Plan Problems: (1) Ovarian cyst (2) Pelvic inflammatory disease, female (3) Intractable nausea and vomiting (4) Cyclic vomiting syndrome Assessment/Plan better WBC is better less pain US of pelvic reviewed, Hemorrhagic cyst. Subjective ROS Limited/Unobtainable: No Allergies: Coded Allergies: No Known Allergies (Unverified , 06/25/19) Objective Last 24 Hour Vital Signs Date Time Temp Pulse Resp B/P (MAP) Pulse Ox O2 Delivery O2 Flow Rate FiO2 06/26/19 12:00 97.9 60 16 122/88 (99) 98 06/26/19 10:55 98.1 06/26/19 07:56 Room Air 06/26/19 07:19 98.1 72 16 130/79 (96) 99 06/26/19 06:45 98.1 06/26/19 05:53 72 111/82 (92) 06/26/19 04:27 97.8 72 20 94/57 (69) 94 06/26/19 00:00 98.9 70 20 105/74 (84) 98 06/25/19 21:25 Room Air 06/25/19 20:00 97.6 89 20 119/79 (92) 94 06/25/19 16:00 99.7 68 20 113/66 (82) 99 Intake and Output 06/25/19 06/26/19 18:59 06:59 Intake Total 200 ml 820 ml Balance 200 ml 820 ml Intake Oral 200 ml IV Total 820 ml # Voids 3 3 General Appearance: WD/WN HEENT: normocephalic, anicteric Respiratory/Chest: chest wall non-tender, normal breath sounds Cardiovascular: normal rate, no gallop/murmur Abdomen: no organomegaly Extremities: no cyanosis Laboratory Tests 06/25/19 19:35: Chlamydia trachomatis RNA [Pending], Neisseria gonorrhoeae RNA [Pending] 06/26/19 05:25: White Blood Count 13.8H, Red Blood Count 4.10L, Hemoglobin 12.7, Hematocrit 38.3 , Mean Corpuscular Volume 94, Mean Corpuscular Hemoglobin 31.0, Mean Corpuscular Hemoglobin Concent 33.1, Red Cell Distribution Width 11.8, Platelet Count 184, Mean Platelet Volume 5.9L, Neutrophils (%) (Auto) 83.1H, Lymphocytes (%) (Auto) 10.3L, Monocytes (%) (Auto) 5.9, Eosinophils (%) (Auto) 0.5, Basophils (%) (Auto) 0.3, Sodium Level 141, Potassium Level 3.4L, Chloride Level 106, Carbon Dioxide Level 27, Anion Gap 8, Blood Urea Nitrogen 4L, Creatinine 0.7, Estimat Glomerular Filtration Rate > 60, Glucose Level 104, Calcium Level 8.4L, Phosphorus Level 2.2L, Magnesium Level 1.7L, Rapid Plasma Reagin [Pending], HIV (1&2) Antibody Rapid Negative Current Medications Medications (Trade) Dose Ordered Sig/Memo Route PRN Reason Start Time Stop Time Status Last Admin Dose Admin Acetaminophen (Tylenol) 650 mg Q4H PRN ORAL Mild Pain/Temp > 100.5 06/25/19 14:18 07/25/19 14:17 Cefoxitin Sodium 2 gm/Dextrose 110 ml @ 220 mls/hr Q6HR IVPB 06/25/19 18:00 07/02/19 17:59 06/26/19 11:39 Dextrose/Sodium Chloride 1,000 ml @ 75 mls/hr [id number] IV 06/25/19 08:00 07/25/19 07:59 06/26/19 10:30 Doxycycline Monohydrate (Doxycycline Monohydrate) 100 mg EVERY 12 HOURS ORAL 06/25/19 23:00 07/02/19 22:59 06/26/19 09:17 Fluoxetine HCl (PROzac) 40 mg DAILY ORAL 06/25/19 09:00 07/25/19 08:59 06/26/19 09:17 Iopamidol (Isovue-300 100ml) 100 ml NOW PRN INJ Radiology Procedure 06/25/19 02:00 Lorazepam (Ativan 2mg/ml 1ml) 0.5 mg Q4H PRN IV For Anxiety 06/25/19 07:15 07/02/19 07:14 Morphine Sulfate (Morphine Sulfate) 4 mg Q4H PRN IVP Moderate Pain (Pain Scale 4-6) 06/25/19 14:00 07/02/19 13:59 06/26/19 06:15 Morphine Sulfate (Morphine Sulfate) 6 mg Q4H PRN IVP Severe Pain (Pain Scale 7-10) 06/25/19 14:00 07/02/19 13:59 06/26/19 10:25 Ondansetron HCl (Zofran) 4 mg Q4H PRN IVP Nausea & Vomiting 06/25/19 07:15 07/25/19 07:14 06/26/19 10:25 Quetiapine Fumarate (SEROquel) 25 mg DAILY ORAL 06/25/19 09:00 07/25/19 08:59 06/26/19 09:17 Mireya William MD Jun 26, 2019 14:02
--- NOTE | 2019-06-26 14:03 | NUR ---
*-* INSURANCE *-* ALL CLINICALS AND REVIEWS HAVE BEEN FAXED TO: [employer] NO CONCRETE BUILDINGS ASSEMBLER ASSIGNED AT THIS TIME PLEASE FAX THE REVIEW/CLINICAL P- [phone] F- [phone]....REVIEW/CLINICAL
--- NOTE | 2019-06-26 14:51 | NUR ---
WATER RESOURCES TECHNICAL OFFICERINSPECTOR SCREEN PRINTING SI: ABDOMINAL PAIN,NAUSEA T. 98.5 HR 70 RR 18 B/P 122/88 WBC 13.8 K 3.4 MG 1.7 IS: IVF D5NS @ 75ML/HR MAGNESIUM IV CEFOXILIN IV MED/SURG STATUS
[2019-06-26] MEDS ORDERED: Potassium Phosphate 30 MM in NS 275 ML IV ONE (15:30)
--- NOTE | 2019-06-26 16:53 | Internal Med Progress Note ---
Subjective Physician Name Judah Yoder Attending Physician Judah Yoder MD Current Medications Medications (Trade) Dose Ordered Sig/Memo Route PRN Reason Start Time Stop Time Status Last Admin Dose Admin Acetaminophen (Tylenol) 650 mg Q4H PRN ORAL Mild Pain/Temp > 100.5 06/25/19 14:18 07/25/19 14:17 Cefoxitin Sodium 2 gm/Dextrose 110 ml @ 220 mls/hr Q6HR IVPB 06/25/19 18:00 07/02/19 17:59 06/26/19 11:39 Dextrose/Sodium Chloride 1,000 ml @ 75 mls/hr [id number] IV 06/25/19 08:00 07/25/19 07:59 06/26/19 10:30 Doxycycline Monohydrate (Doxycycline Monohydrate) 100 mg EVERY 12 HOURS ORAL 06/25/19 23:00 07/02/19 22:59 06/26/19 09:17 Fluoxetine HCl (PROzac) 40 mg DAILY ORAL 06/25/19 09:00 07/25/19 08:59 06/26/19 09:17 Iopamidol (Isovue-300 100ml) 100 ml NOW PRN INJ Radiology Procedure 06/25/19 02:00 Lorazepam (Ativan 2mg/ml 1ml) 0.5 mg Q4H PRN IV For Anxiety 06/25/19 07:15 07/02/19 07:14 Morphine Sulfate (Morphine Sulfate) 4 mg Q4H PRN IVP Moderate Pain (Pain Scale 4-6) 06/25/19 14:00 07/02/19 13:59 06/26/19 06:15 Morphine Sulfate (Morphine Sulfate) 6 mg Q4H PRN IVP Severe Pain (Pain Scale 7-10) 06/25/19 14:00 07/02/19 13:59 06/26/19 14:25 Ondansetron HCl (Zofran) 4 mg Q4H PRN IVP Nausea & Vomiting 06/25/19 07:15 07/25/19 07:14 06/26/19 10:25 Potassium Phosphate 30 mm/ Sodium Chloride 285 ml @ 47.5 mls/hr ONCE ONCE IV 06/26/19 15:30 06/26/19 21:29 06/26/19 16:23 Quetiapine Fumarate (SEROquel) 25 mg DAILY ORAL 06/25/19 09:00 07/25/19 08:59 06/26/19 09:17 Allergies: Coded Allergies: No Known Allergies (Unverified , 06/25/19) Subjective Awake, alert, responsive, no nausea, one episode of vomiting in the morning. Objective Last Vital Signs Date Time Temp Pulse Resp B/P (MAP) Pulse Ox O2 Delivery O2 Flow Rate FiO2 06/26/19 14:55 97.9 06/26/19 12:00 60 16 122/88 (99) 98 06/26/19 07:56 Room Air Laboratory Tests Test 06/25/19 19:35 06/26/19 05:25 Chlamydia trachomatis RNA Pending Neisseria gonorrhoeae RNA Pending White Blood Count 13.8 K/UL (4.8-10.8) H Red Blood Count 4.10 M/UL (4.20-5.40) L Hemoglobin 12.7 G/DL (12.0-16.0) Hematocrit 38.3 % (37.0-47.0) Mean Corpuscular Volume 94 FL (80-99) Mean Corpuscular Hemoglobin 31.0 PG (27.0-31.0) Mean Corpuscular Hemoglobin Concent 33.1 G/DL (32.0-36.0) Red Cell Distribution Width 11.8 % (11.6-14.8) Platelet Count 184 K/UL (150-450) Mean Platelet Volume 5.9 FL (6.5-10.1) L Neutrophils (%) (Auto) 83.1 % (45.0-75.0) H Lymphocytes (%) (Auto) 10.3 % (20.0-45.0) L Monocytes (%) (Auto) 5.9 % (1.0-10.0) Eosinophils (%) (Auto) 0.5 % (0.0-3.0) Basophils (%) (Auto) 0.3 % (0.0-2.0) Sodium Level 141 MMOL/L (136-145) Potassium Level 3.4 MMOL/L (3.5-5.1) L Chloride Level 106 MMOL/L (98-107) Carbon Dioxide Level 27 MMOL/L (21-32) Anion Gap 8 mmol/L (5-15) Blood Urea Nitrogen 4 mg/dL (7-18) L Creatinine 0.7 MG/DL (0.55-1.30) Estimat Glomerular Filtration Rate > 60 mL/min (>60) Glucose Level 104 MG/DL (74-106) Calcium Level 8.4 MG/DL (8.5-10.1) L Phosphorus Level 2.2 MG/DL (2.5-4.9) L Magnesium Level 1.7 MG/DL (1.8-2.4) L Rapid Plasma Reagin Pending HIV (1&2) Antibody Rapid Negative (NEGATIVE) Intake and Output 06/25/19 06/26/19 19:00 07:00 Intake Total 200 ml 820 ml Balance 200 ml 820 ml Intake Oral 200 ml IV Total 820 ml # Voids 3 3 Objective General: No acute distress, awake and alert HEENT: NCAT, sclera anicteric, PERRL, EOMI. Neck: Supple, no significant jugular venous distention, Lungs: Good inspiratory effort, no accessory muscle use, clear to auscultation bilaterally, no Wheeze or Rales. Heart: Regular rate and rhythm, normal S1/S2, no murmurs/gallops Abdomen: soft, lower Q tenderness, nondistended. Normoactive bowel sounds. / Rectal: Refused and deferred. Extremities: No Cyanosis , clubbing or edema. Neuro: A&O x 3, Able to move all extremities Skin: warm, no rash. Assessment/Plan Assessment/Plan Assessment: Acute severe abdominal pain, nausea/vomiting- seems likely to Large left hemorrhagic cyst- r/o PID given fever and leukocytosis, although these could been reactive to former -Transvaginal US: Large left hemorrhagic cyst. Follow-up recommended in 6 weeks. -CT abd/p: Nonspecific mild fluid-filled left lower quadrant small bowel loops ,. Indicate mild ileus or enteritis changes. Trace free intraperitoneal fluid. Slightly decreased size left ovarian cyst. Previously demonstrated subcentimeter right lobe hypodense lesion again demonstrated, too small to characterize. 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
[2019-06-26 20:00] VITALS: BP 123/88
--- NOTE | 2019-06-26 20:07 | NUR ---
NURSE NOTES: Pt is in bed, awake, alert and verbal. No acute distress noted. Vitals stable. Report received from LAWSON Lucas. Pt is on room air, now on full liq diet. D5 1/2 NS running at 75ml/hr. Pain medication will be given as ordered PRN. Fall precaution in place. Bed locked low in position,side rails up and call light within reach. Pt instructed to call for assistance before getting out of bed. Pt will be monitored.
[2019-06-27] VITALS (7 sets, daily range): BP systolic 97–133; BP diastolic 60–84
[2019-06-27] MEDS: LORazepam Inj 2mg/ml 1ml IV PRN ×2 (01:17→06:28)
[2019-06-27] MEDS: cefOXitin 2gm in D5W 110ml IVPB SCH ×5 (01:18→23:44)
[2019-06-27] MEDS: D5 1/2NS 1,000 ML IV SCH ×2 (01:18→12:24)
--- NOTE | 2019-06-27 02:00 | NUR ---
NURSE NOTES: Pt is in bed, awake and restless. Pain medication and Ativan given as ordered PRN.
[2019-06-27] MEDS: Morphine Sulfate 10mg/ml Inj IVP PRN (03:35)
--- NOTE | 2019-06-27 07:00 | NUR ---
NURSE NOTES: Pt is in bed, vomiting. Zofran 4mg IVP given as ordered PRN. Pt complains of itchiness,Dr Yoder called, Benadryl 25 mg po q 8hrs PRN itchiness ordered by Dr Yoder.
--- NOTE | 2019-06-27 07:15 | NUR ---
HAND-OFF: Report given to LAWSON Lucas.Informed Shayy to administer Benadryl if pt complains of Itchiness. Pt's family now by bedside.
--- NOTE | 2019-06-27 07:22 | Pulmonology Progress Note ---
Assessment/Plan Problems: (1) Ovarian cyst (2) Pelvic inflammatory disease, female (3) Intractable nausea and vomiting (4) Cyclic vomiting syndrome Assessment/Plan still nausea continue current meds less pain US of pelvic reviewed, Hemorrhagic cyst. Subjective ROS Limited/Unobtainable: No Constitutional: Reports: no symptoms HEENT: Repors: no symptoms Allergies: Coded Allergies: No Known Allergies (Unverified , 06/25/19) Objective Last 24 Hour Vital Signs Date Time Temp Pulse Resp B/P (MAP) Pulse Ox O2 Delivery O2 Flow Rate FiO2 06/27/19 04:00 98.5 51 18 133/72 (92) 99 06/27/19 00:00 97.7 56 16 108/63 (78) 99 06/26/19 21:00 Room Air 06/26/19 20:00 98.6 75 18 123/88 (100) 96 06/26/19 14:55 97.9 06/26/19 12:00 97.9 60 16 122/88 (99) 98 06/26/19 07:56 Room Air Intake and Output 06/26/19 06/27/19 19:00 07:00 Intake Total 480 ml Output Total 50 ml Balance 430 ml Intake Oral 480 ml Emesis 50 ml # Voids 3 General Appearance: WD/WN HEENT: normocephalic, anicteric Respiratory/Chest: lungs clear, chest wall tender Cardiovascular: normal rate, no gallop/murmur Abdomen: soft, non tender, non distended Extremities: no clubbing Current Medications Medications (Trade) Dose Ordered Sig/Memo Route PRN Reason Start Time Stop Time Status Last Admin Dose Admin Acetaminophen (Tylenol) 650 mg Q4H PRN ORAL Mild Pain/Temp > 100.5 06/25/19 14:18 07/25/19 14:17 Cefoxitin Sodium 2 gm/Dextrose 110 ml @ 220 mls/hr Q6HR IVPB 06/25/19 18:00 07/02/19 17:59 06/27/19 06:28 Dextrose/Sodium Chloride 1,000 ml @ 75 mls/hr [id number] IV 06/25/19 08:00 07/25/19 07:59 06/27/19 01:18 Diphenhydramine HCl (Benadryl) 25 mg Q8H PRN ORAL Itching 06/27/19 07:15 10/7/19 07:14 Doxycycline Monohydrate (Doxycycline Monohydrate) 100 mg EVERY 12 HOURS ORAL 06/25/19 23:00 07/02/19 22:59 06/26/19 22:31 Fluoxetine HCl (PROzac) 40 mg DAILY ORAL 06/25/19 09:00 07/25/19 08:59 06/26/19 09:17 Iopamidol (Isovue-300 100ml) 100 ml NOW PRN INJ Radiology Procedure 06/25/19 02:00 Lorazepam (Ativan 2mg/ml 1ml) 0.5 mg Q4H PRN IV For Anxiety 06/25/19 07:15 07/02/19 07:14 06/27/19 06:28 Morphine Sulfate (Morphine Sulfate) 4 mg Q4H PRN IVP Moderate Pain (Pain Scale 4-6) 06/25/19 14:00 07/02/19 13:59 06/26/19 06:15 Morphine Sulfate (Morphine Sulfate) 6 mg Q4H PRN IVP Severe Pain (Pain Scale 7-10) 06/25/19 14:00 07/02/19 13:59 06/27/19 03:35 Ondansetron HCl (Zofran) 4 mg Q4H PRN IVP Nausea & Vomiting 06/25/19 07:15 07/25/19 07:14 06/27/19 07:14 Quetiapine Fumarate (SEROquel) 25 mg DAILY ORAL 06/25/19 09:00 07/25/19 08:59 06/26/19 09:17 Mireya William MD Jun 27, 2019 07:22
--- NOTE | 2019-06-27 07:34 | NUR ---
NURSE NOTES: Received report from LAWSON Roland. Pt awake, having emesis, given Zofran by LAWSON Roland. PT assisted back to bed, changed gown, given water and liquid diet tray, cleaned faced, parents at bedside, IV Abx running according to order, bed in lowest position, call light within reach. Dr. William saw pt, ordered AM labs, aware of vomiting and continuing to abdominal pain.
[2019-06-27 08:06] LABS: BASOPHILS % (AUTO) 0.6 % (0.0-2.0); EOSINOPHILS % (AUTO) 2.3 % (0.0-3.0); HEMATOCRIT 37.5 % (37.0-47.0); HEMOGLOBIN 12.4 G/DL (12.0-16.0); LYMPHOCYTES % (AUTO) 21.6 % (20.0-45.0); MEAN CORPUSCULAR VOLUME 93 FL (80-99); MONOCYTES % (AUTO) 8.3 % (1.0-10.0); NEUTROPHILS % (AUTO) 67.3 % (45.0-75.0); PLATELET COUNT 197 K/UL (150-450); RED BLOOD COUNT 4.04 M/UL (4.20-5.40); RED CELL DISTRIBUTION WIDTH 11.9 % (11.6-14.8)
[2019-06-27] MEDS: Doxycycline Monohydrate 100mg ORAL SCH ×2 (08:08→20:29)
--- NOTE | 2019-06-27 08:23 | NUR ---
NURSE NOTES: Pt asking for pain medications, pt appears sedated, lethargic,and disoriented, BP 97/60 HR 62. Discussed with pt that BP is too low to receive Morphine and pt states pain is 5/10. RN administer Tylenol at this time and held morphine due to pt's state and low BP and heart rate. Administered oral Abx and Prosac, held Seroquel at this due to side effect of make pt more drowsy. Applied NC 2L to pt and put HOB above 30 degrees, will notify
[2019-06-27 08:37] LABS: ALANINE AMINOTRANSFERASE 19 U/L (12-78); ALBUMIN 3.2 G/DL (3.4-5.0); ALBUMIN/GLOBULIN RATIO 0.9 (1.0-2.7); ALKALINE PHOSPHATASE 49 U/L (46-116); ANION GAP 10 mmol/L (5-15); ASPARTATE AMINO TRANSFERASE 16 U/L (15-37); BILIRUBIN,TOTAL 0.4 MG/DL (0.2-1.0); BLOOD UREA NITROGEN 3 mg/dL (7-18); CALCIUM 8.4 MG/DL (8.5-10.1); CARBON DIOXIDE 25 MMOL/L (21-32); CHLORIDE 109 MMOL/L (98-107); CREATININE 1.1 MG/DL (0.55-1.30); POTASSIUM 3.6 MMOL/L (3.5-5.1); SODIUM 144 MMOL/L (136-145)
--- NOTE | 2019-06-27 10:47 | Infectious Diseases Prog Note ---
Assessment/Plan Assessment/Plan Assessment/Plan Abx: None Assessment: Acute severe abdominal pain, nausea/vomiting- seems likely to Large left hemorrhagic cyst- r/o PID given fever and leukocytosis, although these could been reactive to former -Transvaginal US: Large left hemorrhagic cyst. Follow-up recommended in 6 weeks. -CT abd/p: Nonspecific mild fluid-filled left lower quadrant small bowel loops ,. Indicate mild ileus or enteritis changes. Trace free intraperitoneal fluid. Slightly decreased size left ovarian cyst. Previously demonstrated subcentimeter right lobe hypodense lesion again demonstrated, too small to characterize. On current exam, peripheral nodular enhancement raises the possibility that this is a small hemangioma; this correlates with findings reported on prior sonogram of 05/17/2019 -u/a no pyuria, nit +, leuk neg -HIV ab screen neg Low grade fever; improving Leukocytosis; improving Cyclic vomiting syndrome Plan: -Continue empiric cefoxitin and PO doxycycline #3 for now -f/u cx -Monitor CBC/CMP, temperatures -f/u GC/CL, RPR -OB-employee relations specialist eval Thank you for this consultation. Will continue to follow along with you. Subjective Allergies: Coded Allergies: No Known Allergies (Unverified , 06/25/19) Subjective Afebrile Leukocytosis resolved Objective Vital Signs Last 24 Hour Vital Signs Date Time Temp Pulse Resp B/P (MAP) Pulse Ox O2 Delivery O2 Flow Rate FiO2 06/27/19 08:22 97.2 62 20 97/60 (72) 94 06/27/19 07:43 98.5 51 16 110/70 (83) 99 06/27/19 00:00 97.7 56 16 108/63 (78) 99 06/26/19 21:00 Room Air 06/26/19 20:00 98.6 75 18 123/88 (100) 96 06/26/19 14:55 97.9 06/26/19 12:00 97.9 60 16 122/88 (99) 98 Height (Feet): 5 Height (Inches): 4.00 Weight (Pounds): 116 Objective General Appearance: NAD HEENT: normocephalic, atraumatic, MMM, EOMI Respiratory/Chest: CTAB, No W Cardiovascular/Chest: RRR, S1, S2 Abdomen: normal bowel sounds, non tender Laboratory Tests Test 06/27/19 07:50 White Blood Count 7.0 K/UL (4.8-10.8) Red Blood Count 4.04 M/UL (4.20-5.40) L Hemoglobin 12.4 G/DL (12.0-16.0) Hematocrit 37.5 % (37.0-47.0) Mean Corpuscular Volume 93 FL (80-99) Mean Corpuscular Hemoglobin 30.6 PG (27.0-31.0) Mean Corpuscular Hemoglobin Concent 33.0 G/DL (32.0-36.0) Red Cell Distribution Width 11.9 % (11.6-14.8) Platelet Count 197 K/UL (150-450) Mean Platelet Volume 6.5 FL (6.5-10.1) Neutrophils (%) (Auto) 67.3 % (45.0-75.0) Lymphocytes (%) (Auto) 21.6 % (20.0-45.0) Monocytes (%) (Auto) 8.3 % (1.0-10.0) Eosinophils (%) (Auto) 2.3 % (0.0-3.0) Basophils (%) (Auto) 0.6 % (0.0-2.0) Sodium Level 144 MMOL/L (136-145) Potassium Level 3.6 MMOL/L (3.5-5.1) Chloride Level 109 MMOL/L (98-107) H Carbon Dioxide Level 25 MMOL/L (21-32) Anion Gap 10 mmol/L (5-15) Blood Urea Nitrogen 3 mg/dL (7-18) L Creatinine 1.1 MG/DL (0.55-1.30) # Estimat Glomerular Filtration Rate 58.3 mL/min (>60) Glucose Level 126 MG/DL (74-106) H Calcium Level 8.4 MG/DL (8.5-10.1) L Total Bilirubin 0.4 MG/DL (0.2-1.0) Aspartate Amino Transf (AST/SGOT) 16 U/L (15-37) Alanine Aminotransferase (ALT/SGPT) 19 U/L (12-78) Alkaline Phosphatase 49 U/L (46-116) Total Protein 6.8 G/DL (6.4-8.2) Albumin 3.2 G/DL (3.4-5.0) L Globulin 3.6 g/dL Albumin/Globulin Ratio 0.9 (1.0-2.7) L Current Medications Medications (Trade) Dose Ordered Sig/Memo Route PRN Reason Start Time Stop Time Status Last Admin Dose Admin Acetaminophen (Tylenol) 650 mg Q4H PRN ORAL Mild Pain/Temp > 100.5 06/25/19 14:18 07/25/19 14:17 06/27/19 08:09 Cefoxitin Sodium 2 gm/Dextrose 110 ml @ 220 mls/hr Q6HR IVPB 06/25/19 18:00 07/02/19 17:59 06/27/19 06:28 Dextrose/Sodium Chloride 1,000 ml @ 75 mls/hr [id number] IV 06/25/19 08:00 07/25/19 07:59 06/27/19 01:18 Diphenhydramine HCl (Benadryl) 25 mg Q8H PRN ORAL Itching 06/27/19 07:15 07/27/19 07:14 Doxycycline Monohydrate (Doxycycline Monohydrate) 100 mg EVERY 12 HOURS ORAL 06/25/19 23:00 07/02/19 22:59 06/27/19 08:08 Fluoxetine HCl (PROzac) 40 mg DAILY ORAL 06/25/19 09:00 07/25/19 08:59 06/27/19 08:08 Iopamidol (Isovue-300 100ml) 100 ml NOW PRN INJ Radiology Procedure 06/25/19 02:00 Lorazepam (Ativan 2mg/ml 1ml) 0.5 mg Q4H PRN IV For Anxiety 06/25/19 07:15 07/02/19 07:14 06/27/19 06:28 Morphine Sulfate (Morphine Sulfate) 4 mg Q4H PRN IVP Moderate Pain (Pain Scale 4-6) 06/25/19 14:00 07/02/19 13:59 06/26/19 06:15 Morphine Sulfate (Morphine Sulfate) 6 mg Q4H PRN IVP Severe Pain (Pain Scale 7-10) 06/25/19 14:00 07/02/19 13:59 06/27/19 03:35 Ondansetron HCl (Zofran) 4 mg Q4H PRN IVP Nausea & Vomiting 06/25/19 07:15 07/25/19 07:14 06/27/19 07:14 Quetiapine Fumarate (SEROquel) 25 mg DAILY ORAL 06/25/19 09:00 07/25/19 08:59 06/26/19 09:17 Umair Carranza MD Jun 27, 2019 10:47
--- NOTE | 2019-06-27 14:37 | Internal Med Progress Note ---
Subjective Date of Service: Jun 27, 2019 Physician Name Az Pearson Attending Physician Judah Yoder MD Current Medications Medications (Trade) Dose Ordered Sig/Memo Route PRN Reason Start Time Stop Time Status Last Admin Dose Admin Acetaminophen (Tylenol) 650 mg Q4H PRN ORAL Mild Pain/Temp > 100.5 06/25/19 14:18 07/25/19 14:17 06/27/19 08:09 Cefoxitin Sodium 2 gm/Dextrose 110 ml @ 220 mls/hr Q6HR IVPB 06/25/19 18:00 07/02/19 17:59 06/27/19 12:23 Dextrose/Sodium Chloride 1,000 ml @ 75 mls/hr [id number] IV 06/25/19 08:00 07/25/19 07:59 06/27/19 12:24 Diphenhydramine HCl (Benadryl) 25 mg Q8H PRN ORAL Itching 06/27/19 07:15 07/27/19 07:14 Doxycycline Monohydrate (Doxycycline Monohydrate) 100 mg EVERY 12 HOURS ORAL 06/25/19 23:00 07/02/19 22:59 06/27/19 08:08 Fluoxetine HCl (PROzac) 40 mg DAILY ORAL 06/25/19 09:00 07/25/19 08:59 06/27/19 08:08 Iopamidol (Isovue-300 100ml) 100 ml NOW PRN INJ Radiology Procedure 06/25/19 02:00 Lorazepam (Ativan 2mg/ml 1ml) 0.5 mg Q4H PRN IV For Anxiety 06/25/19 07:15 07/02/19 07:14 06/27/19 06:28 Morphine Sulfate (Morphine Sulfate) 4 mg Q4H PRN IVP Moderate Pain (Pain Scale 4-6) 06/25/19 14:00 07/02/19 13:59 06/26/19 06:15 Morphine Sulfate (Morphine Sulfate) 6 mg Q4H PRN IVP Severe Pain (Pain Scale 7-10) 06/25/19 14:00 07/02/19 13:59 06/27/19 03:35 Ondansetron HCl (Zofran) 4 mg Q4H PRN IVP Nausea & Vomiting 06/25/19 07:15 07/25/19 07:14 06/27/19 07:14 Quetiapine Fumarate (SEROquel) 25 mg DAILY ORAL 06/25/19 09:00 07/25/19 08:59 06/26/19 09:17 Allergies: Coded Allergies: No Known Allergies (Unverified , 06/25/19) ROS Limited/Unobtainable: No Constitutional: Reports: no symptoms HEENT: Reports: no symptoms Cardiovascular: Reports: no symptoms Respiratory: Reports: no symptoms Gastrointestinal/Abdominal: Reports: abdominal pain Genitourinary: Reports: no symptoms Neurologic/Psychiatric: Reports: no symptoms Subjective 29 YO F admitted with abdominal pain. Now left ovarian cyst and possible pelvic inflammatory dis. Cover for Int Med-DR Yoder Objective Last Vital Signs Date Time Temp Pulse Resp B/P (MAP) Pulse Ox O2 Delivery O2 Flow Rate FiO2 06/27/19 12:00 97.5 68 20 103/65 (78) 97 06/27/19 09:00 Room Air Laboratory Tests Test 06/27/19 07:50 White Blood Count 7.0 K/UL (4.8-10.8) Red Blood Count 4.04 M/UL (4.20-5.40) L Hemoglobin 12.4 G/DL (12.0-16.0) Hematocrit 37.5 % (37.0-47.0) Mean Corpuscular Volume 93 FL (80-99) Mean Corpuscular Hemoglobin 30.6 PG (27.0-31.0) Mean Corpuscular Hemoglobin Concent 33.0 G/DL (32.0-36.0) Red Cell Distribution Width 11.9 % (11.6-14.8) Platelet Count 197 K/UL (150-450) Mean Platelet Volume 6.5 FL (6.5-10.1) Neutrophils (%) (Auto) 67.3 % (45.0-75.0) Lymphocytes (%) (Auto) 21.6 % (20.0-45.0) Monocytes (%) (Auto) 8.3 % (1.0-10.0) Eosinophils (%) (Auto) 2.3 % (0.0-3.0) Basophils (%) (Auto) 0.6 % (0.0-2.0) Sodium Level 144 MMOL/L (136-145) Potassium Level 3.6 MMOL/L (3.5-5.1) Chloride Level 109 MMOL/L (98-107) H Carbon Dioxide Level 25 MMOL/L (21-32) Anion Gap 10 mmol/L (5-15) Blood Urea Nitrogen 3 mg/dL (7-18) L Creatinine 1.1 MG/DL (0.55-1.30) # Estimat Glomerular Filtration Rate 58.3 mL/min (>60) Glucose Level 126 MG/DL (74-106) H Calcium Level 8.4 MG/DL (8.5-10.1) L Total Bilirubin 0.4 MG/DL (0.2-1.0) Aspartate Amino Transf (AST/SGOT) 16 U/L (15-37) Alanine Aminotransferase (ALT/SGPT) 19 U/L (12-78) Alkaline Phosphatase 49 U/L (46-116) Total Protein 6.8 G/DL (6.4-8.2) Albumin 3.2 G/DL (3.4-5.0) L Globulin 3.6 g/dL Albumin/Globulin Ratio 0.9 (1.0-2.7) L Intake and Output 06/26/19 06/27/19 18:59 06:59 Intake Total 480 ml 1120 ml Output Total 50 ml Balance 430 ml 1120 ml Intake Oral 480 ml IV Total 1120 ml Emesis 50 ml # Voids 3 Objective PHYSICAL EXAMINATION: GENERAL: The patient is a well-developed and well-nourished female, who is in moderate pain. HEENT: Eyes, pupils are equal and responsive to light and accommodation. Extraocular movements are intact. NECK: Supple without lymphadenopathy. CHEST: Lungs are clear to auscultation bilaterally without wheezes or rales. CARDIOVASCULAR: Regular rhythm and rate. S1 and S2 are normal without murmurs, rubs, or gallops. ABDOMEN: Soft, diffusely tender with decreased bowel sounds. No evidence of hepatosplenomegaly or rebound noted. There is some voluntary guarding noted. EXTREMITIES: Negative for clubbing, cyanosis, or edema. RECTAL/GENITAL: Not performed. NEUROLOGICAL: Cranial nerves II through XII are grossly intact without focal deficits. Motor strength is 5/5 bilaterally. Deep tendon reflexes are 2+ plantar. Assessment/Plan Assessment/Plan ASSESSMENT: This is a 29-year-old female. 1. Left ovarian cyst. 2. Abdominal pain. 3. Nausea and vomiting. 4. Leukocytosis. TREATMENT: 1. Left ovarian cyst. A [employer]PER[employer] consultation has been obtained with Dr. Tim. We will follow recommendations of Gynecology. 2. Abdominal pain. This may be secondary to ovarian cyst as above. A Gastroenterology consultation has been obtained with Dr. Thuan Donis. 3. Nausea and vomiting. 4. Leukocytosis. An Infectious Disease consultation has been obtained with Dr. Silver. The patient has been started empirically on cefoxitin and doxycycline for possible pelvic inflammatory disease Az Pearson MD Jun 27, 2019 14:37
[2019-06-27] MEDS: Morphine Sulfate 4mg/ml Inj (IV USE ONLY) IVP PRN ×2 (15:09→20:30)
[2019-06-27] MEDS ORDERED: NS 500ML ONE (15:57)
[2019-06-27] MEDS ORDERED: Tubing IV Secondary IV ONE (15:57)
[2019-06-27] MEDS ORDERED: FLUOXETINE HCL20 M2 ORAL (18:24)
--- NOTE | 2019-06-27 19:43 | NUR ---
HAND-OFF: Report given to LAWSON Mcintosh.
--- NOTE | 2019-06-27 19:52 | NUR ---
NURSE NOTES: Received report from LAWSON Lucas. Pt AAO x 4, on room air, walking around the room. IV site intact and running D5 1/2 NS 75cc/hr. Pt is on full liquid diet. No c/o pain. No acute distress noted at this time. Pain meds will be given as ordered. Bed locked, lowest position, alarm on, side rails up x 2, call light within reach. Will continue to monitor.
[2019-06-28] VITALS: BP 120/60
[2019-06-28] MEDS: Morphine Sulfate 4mg/ml Inj (IV USE ONLY) IVP PRN ×3 (02:26→12:53)
[2019-06-28] MEDS: D5 1/2NS 1,000 ML IV SCH ×2 (02:32→16:00)
[2019-06-28 04:00] VITALS: BP 115/77
[2019-06-28] MEDS: cefOXitin 2gm in D5W 110ml IVPB SCH ×4 (05:52→23:58)
--- NOTE | 2019-06-28 06:55 | NUR ---
NURSE NOTES: Pt wants to take Seroquel at night for sleep. RN left message Dr. Yoder to change seroquel schedule. Waiting for call back.
[2019-06-28 07:36] LABS: BASOPHILS % (AUTO) 0.8 % (0.0-2.0); EOSINOPHILS % (AUTO) 1.3 % (0.0-3.0); HEMOGLOBIN 13.2 G/DL (12.0-16.0); LYMPHOCYTES % (AUTO) 23.9 % (20.0-45.0); MEAN CORPUSCULAR VOLUME 92 FL (80-99); MONOCYTES % (AUTO) 6.9 % (1.0-10.0); NEUTROPHILS % (AUTO) 67.2 % (45.0-75.0); PLATELET COUNT 244 K/UL (150-450); RED BLOOD COUNT 4.33 M/UL (4.20-5.40); RED CELL DISTRIBUTION WIDTH 11.5 % (11.6-14.8); WHITE BLOOD COUNT 6.9 K/UL (4.8-10.8)
--- NOTE | 2019-06-28 07:36 | NUR ---
HAND-OFF: Report given to LAWSON Lucas.
[2019-06-28 07:55] LABS: ALANINE AMINOTRANSFERASE 18 U/L (12-78); ALBUMIN 3.3 G/DL (3.4-5.0); ALBUMIN/GLOBULIN RATIO 0.8 (1.0-2.7); ALKALINE PHOSPHATASE 52 U/L (46-116); ANION GAP 9 mmol/L (5-15); ASPARTATE AMINO TRANSFERASE 17 U/L (15-37); BILIRUBIN,TOTAL 0.3 MG/DL (0.2-1.0); BLOOD UREA NITROGEN 2 mg/dL (7-18); CALCIUM 8.9 MG/DL (8.5-10.1); CARBON DIOXIDE 27 MMOL/L (21-32); CHLORIDE 107 MMOL/L (98-107); CREATININE 1.3 MG/DL (0.55-1.30); PHOSPHORUS 3.5 MG/DL (2.5-4.9); POTASSIUM 3.4 MMOL/L (3.5-5.1); SODIUM 143 MMOL/L (136-145)
[2019-06-28 08:00] VITALS: BP 122/101
--- NOTE | 2019-06-28 08:13 | NUR ---
NURSE NOTES: Received report from LAWSON Mcintosh. Pt in bed, awake, talkative, no complaints of pain at this time, no apparent distress noted, IV fluids running according to order, bed in lowest position, call light within reach, discussed plan of care.
--- NOTE | 2019-06-28 08:16 | NUR ---
NURSE NOTES: Notified Dr. William regarding K 3.4, asked about replacement
[2019-06-28] MEDS: Doxycycline Monohydrate 100mg ORAL SCH ×2 (08:29→20:53)
[2019-06-28 12:00] VITALS: BP 139/79
--- NOTE | 2019-06-28 14:31 | NUR ---
NURSE NOTES: RN left message for Dr. Pearson regarding pt's request to change Seroquel admin time to HS instead of 0900 daily. RN also left message regarding no consult from Dr. Tim. No physician order to consult with Meeta, no note from Dr. Tim. Dr. Pearson's note state's awaiting eval from Dr. Tim.
[2019-06-28 16:00] VITALS: BP 129/81
--- NOTE | 2019-06-28 17:34 | Internal Med Progress Note ---
Subjective Date of Service: Jun 28, 2019 Physician Name Az Pearson Attending Physician Judah Yoder MD Current Medications Medications (Trade) Dose Ordered Sig/Memo Route PRN Reason Start Time Stop Time Status Last Admin Dose Admin Acetaminophen (Tylenol) 650 mg Q4H PRN ORAL Mild Pain/Temp > 100.5 06/25/19 14:18 07/25/19 14:17 06/28/19 10:16 Cefoxitin Sodium 2 gm/Dextrose 110 ml @ 220 mls/hr Q6HR IVPB 06/25/19 18:00 07/02/19 17:59 06/28/19 12:49 Dextrose/Sodium Chloride 1,000 ml @ 75 mls/hr [id number] IV 06/25/19 08:00 07/25/19 07:59 06/28/19 16:00 Diphenhydramine HCl (Benadryl) 25 mg Q8H PRN ORAL Itching 06/27/19 07:15 07/27/19 07:14 06/28/19 06:30 Doxycycline Monohydrate (Doxycycline Monohydrate) 100 mg EVERY 12 HOURS ORAL 06/25/19 23:00 07/02/19 22:59 06/28/19 08:29 Fluoxetine HCl (PROzac) 40 mg DAILY ORAL 06/25/19 09:00 07/25/19 08:59 06/28/19 08:29 Iopamidol (Isovue-300 100ml) 100 ml NOW PRN INJ Radiology Procedure 06/25/19 02:00 Lorazepam (Ativan 2mg/ml 1ml) 0.5 mg Q4H PRN IV For Anxiety 06/25/19 07:15 07/02/19 07:14 06/27/19 06:28 Morphine Sulfate (Morphine Sulfate) 4 mg Q4H PRN IVP Moderate Pain (Pain Scale 4-6) 06/25/19 14:00 07/02/19 13:59 06/28/19 12:53 Ondansetron HCl (Zofran) 4 mg Q4H PRN IVP Nausea & Vomiting 06/25/19 07:15 07/25/19 07:14 06/28/19 10:14 Quetiapine Fumarate (SEROquel) 25 mg BEDTIME ORAL 06/28/19 21:00 07/25/19 08:59 Allergies: Coded Allergies: No Known Allergies (Unverified , 06/25/19) ROS Limited/Unobtainable: No Constitutional: Reports: no symptoms HEENT: Reports: no symptoms Cardiovascular: Reports: no symptoms Respiratory: Reports: no symptoms Gastrointestinal/Abdominal: Reports: abdominal pain Genitourinary: Reports: no symptoms Neurologic/Psychiatric: Reports: no symptoms Subjective 29 YO F admitted with abdominal pain. Now left ovarian cyst and possible pelvic inflammatory dis. Cover for Int Naldo-DR Yoder Objective Last Vital Signs Date Time Temp Pulse Resp B/P (MAP) Pulse Ox O2 Delivery O2 Flow Rate FiO2 06/28/19 16:00 98.0 67 17 129/81 (97) 97 68 06/28/19 08:10 Room Air Laboratory Tests Test 06/28/19 06:43 White Blood Count 6.9 K/UL (4.8-10.8) Red Blood Count 4.33 M/UL (4.20-5.40) Hemoglobin 13.2 G/DL (12.0-16.0) Hematocrit 40.0 % (37.0-47.0) Mean Corpuscular Volume 92 FL (80-99) Mean Corpuscular Hemoglobin 30.4 PG (27.0-31.0) Mean Corpuscular Hemoglobin Concent 33.0 G/DL (32.0-36.0) Red Cell Distribution Width 11.5 % (11.6-14.8) L Platelet Count 244 K/UL (150-450) Mean Platelet Volume 6.4 FL (6.5-10.1) L Neutrophils (%) (Auto) 67.2 % (45.0-75.0) Lymphocytes (%) (Auto) 23.9 % (20.0-45.0) Monocytes (%) (Auto) 6.9 % (1.0-10.0) Eosinophils (%) (Auto) 1.3 % (0.0-3.0) Basophils (%) (Auto) 0.8 % (0.0-2.0) Erythrocyte Sedimentation Rate 34 MM/HR (0-20) H Sodium Level 143 MMOL/L (136-145) Potassium Level 3.4 MMOL/L (3.5-5.1) L Chloride Level 107 MMOL/L (98-107) Carbon Dioxide Level 27 MMOL/L (21-32) Anion Gap 9 mmol/L (5-15) Blood Urea Nitrogen 2 mg/dL (7-18) L Creatinine 1.3 MG/DL (0.55-1.30) Estimat Glomerular Filtration Rate 48.1 mL/min (>60) Glucose Level 90 MG/DL (74-106) Calcium Level 8.9 MG/DL (8.5-10.1) Phosphorus Level 3.5 MG/DL (2.5-4.9) Magnesium Level 1.9 MG/DL (1.8-2.4) Total Bilirubin 0.3 MG/DL (0.2-1.0) Aspartate Amino Transf (AST/SGOT) 17 U/L (15-37) Alanine Aminotransferase (ALT/SGPT) 18 U/L (12-78) Alkaline Phosphatase 52 U/L (46-116) C-Reactive Protein, Quantitative 4.0 mg/dL (0.00-0.90) H Total Protein 7.3 G/DL (6.4-8.2) Albumin 3.3 G/DL (3.4-5.0) L Globulin 4.0 g/dL Albumin/Globulin Ratio 0.8 (1.0-2.7) L Intake and Output 06/27/19 06/28/19 18:59 06:59 Intake Total 1530 ml 1510 ml Output Total 200 ml Balance 1330 ml 1510 ml Intake Oral 1120 ml 800 ml IV Total 410 ml 710 ml Emesis 200 ml # Voids 3 5 Objective PHYSICAL EXAMINATION: GENERAL: The patient is a well-developed and well-nourished female, who is in moderate pain. HEENT: Eyes, pupils are equal and responsive to light and accommodation. Extraocular movements are intact. NECK: Supple without lymphadenopathy. CHEST: Lungs are clear to auscultation bilaterally without wheezes or rales. CARDIOVASCULAR: Regular rhythm and rate. S1 and S2 are normal without murmurs, rubs, or gallops. ABDOMEN: Soft, diffusely tender with decreased bowel sounds. No evidence of hepatosplenomegaly or rebound noted. There is some voluntary guarding noted. EXTREMITIES: Negative for clubbing, cyanosis, or edema. RECTAL/GENITAL: Not performed. NEUROLOGICAL: Cranial nerves II through XII are grossly intact without focal deficits. Motor strength is 5/5 bilaterally. Deep tendon reflexes are 2+ plantar. Assessment/Plan Assessment/Plan ASSESSMENT: This is a 29-year-old female. 1. Left ovarian cyst. 2. Abdominal pain. 3. Nausea and vomiting. 4. Leukocytosis. TREATMENT: 1. Left ovarian cyst. 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 Tim. We will follow recommendations of Gynecology. 2. Abdominal pain. This may be secondary to ovarian cyst as above. A Gastroenterology consultation has been obtained with Dr. Thuan Donis. 3. Nausea and vomiting. 4. Leukocytosis. An Infectious Disease consultation has been obtained with Dr. Silver. The patient has been started empirically on cefoxitin and doxycycline for possible pelvic inflammatory disease Az Pearson MD Jun 28, 2019 17:34
--- NOTE | 2019-06-28 18:42 | NUR ---
NURSE NOTES: RN notified Dr. William pt has not had BM since 06/24, asked for MOM order
--- NOTE | 2019-06-28 19:10 | NUR ---
HAND-OFF: Report given to LAWSON Mcintosh.
--- NOTE | 2019-06-28 19:24 | NUR ---
NURSE NOTES: Received report from LAWSON Lucas. Pt AAO x 4, on room air. Boyfriend is at bedside. IV site intact and running D5 1/2 NS 75cc/hr. Pt is on full liquid diet. No c/o pain. No acute distress noted at this time. Pain meds will be given as ordered. Bed locked, lowest position, alarm on, side rails up x 2, call light within reach. Will continue to monitor.
[2019-06-28 20:00] VITALS: BP 143/74
[2019-06-28] MEDS ORDERED: Sennosides 8.6mg tab ORAL PRN (22:00)
[2019-06-28] MEDS ORDERED: Docusate 100mg cap ORAL PRN (22:00)
--- NOTE | 2019-06-28 22:11 | NUR ---
NURSE NOTES: Called Dr. William and received order for constipation. Colace 100mg oral tid prn for constipation, Senokot 8.6mg oral q daily prn constipation.
[2019-06-29] VITALS: BP 116/71
[2019-06-29 04:00] VITALS: BP 117/76
[2019-06-29] MEDS: cefOXitin 2gm in D5W 110ml IVPB SCH ×2 (05:20→12:30)
[2019-06-29] MEDS: D5 1/2NS 1,000 ML IV SCH (05:21)
--- NOTE | 2019-06-29 07:30 | NUR ---
NURSE NOTES: HANDOFF RECEIVED FROM LAWSON WARD. PATIENT RECEIVED SLEEPING IN BED, IV RUNNING PRESCRIBED FLUIDS, IV SITE IS CLEAN, DRY AND INTACT. CALL LIGHT AT REACH, BED IN LOW AND LOCKED POSITION, WILL CONTINUE TO MONITOR.
--- NOTE | 2019-06-29 07:44 | NUR ---
HAND-OFF: Report given to LAWSON Prabhakar.
[2019-06-29 08:00] VITALS: BP 115/81
[2019-06-29 08:29] LABS: BASOPHILS % (AUTO) 0.7 % (0.0-2.0); EOSINOPHILS % (AUTO) 1.6 % (0.0-3.0); HEMATOCRIT 44.8 % (37.0-47.0); HEMOGLOBIN 14.6 G/DL (12.0-16.0); MEAN CORPUSCULAR VOLUME 93 FL (80-99); MONOCYTES % (AUTO) 8.6 % (1.0-10.0); NEUTROPHILS % (AUTO) 66.1 % (45.0-75.0); PLATELET COUNT 300 K/UL (150-450); RED BLOOD COUNT 4.81 M/UL (4.20-5.40); RED CELL DISTRIBUTION WIDTH 11.4 % (11.6-14.8); WHITE BLOOD COUNT 6.5 K/UL (4.8-10.8)
[2019-06-29 09:05] LABS: ANION GAP 8 mmol/L (5-15); BLOOD UREA NITROGEN 2 mg/dL (7-18); CALCIUM 9.3 MG/DL (8.5-10.1); CARBON DIOXIDE 28 MMOL/L (21-32); CHLORIDE 108 MMOL/L (98-107); CREATININE 1.1 MG/DL (0.55-1.30); POTASSIUM 4.6 MMOL/L (3.5-5.1); SODIUM 144 MMOL/L (136-145)
[2019-06-29] MEDS: Doxycycline Monohydrate 100mg ORAL SCH (09:42)
[2019-06-29] MEDS ORDERED: Tubing IV Secondary IV ONE (10:20)
[2019-06-29] MEDS ORDERED: D5 1/2NS 1000ml IV ONE (10:20)
[2019-06-29 12:00] VITALS: BP 116/84
[2019-06-29] MEDS: Morphine Sulfate 4mg/ml Inj (IV USE ONLY) IVP PRN (12:44)
--- NOTE | 2019-06-29 13:04 | NUR ---
*-* INSURANCE *-* ALL CLINICALS AND REVIEWS HAVE BEEN FAXED TO: [facility] NO TICKET PULLER ASSIGNED AT THIS TIME PLEASE FAX THE REVIEW/CLINICAL P- [phone] F- [phone]....REVIEW/CLINICAL
--- NOTE | 2019-06-29 13:24 | Infectious Diseases Prog Note ---
Assessment/Plan Assessment/Plan Abx: None Assessment: Acute severe abdominal pain, nausea/vomiting- seems likely to Large left hemorrhagic cyst- r/o PID given fever and leukocytosis, although these could been reactive to former -Transvaginal US: Large left hemorrhagic cyst. Follow-up recommended in 6 weeks. -CT abd/p: Nonspecific mild fluid-filled left lower quadrant small bowel loops ,. Indicate mild ileus or enteritis changes. Trace free intraperitoneal fluid. Slightly decreased size left ovarian cyst. Previously demonstrated subcentimeter right lobe hypodense lesion again demonstrated, too small to characterize. On current exam, peripheral nodular enhancement raises the possibility that this is a small hemangioma; this correlates with findings reported on prior sonogram of 05/17/2019 -u/a no pyuria, nit +, leuk neg -HIV ab screen neg Low grade fever; SP LeukocytosisSP Cyclic vomiting syndrome Plan: -Dc empiric cefoxitin #5 -COntinue empiric PO doxycycline #5/14 pending GC/CL results -if negative, will d/c -f/u cx -Monitor CBC/CMP, temperatures -f/u GC/CL, RPR -OB-medical insurance coder eval Thank you for this consultation. Will continue to follow along with you. Subjective Allergies: Coded Allergies: No Known Allergies (Unverified , 06/25/19) Subjective afebrile >72hrs no leukocytosis Objective Vital Signs Last 24 Hour Vital Signs Date Time Temp Pulse Resp B/P (MAP) Pulse Ox O2 Delivery O2 Flow Rate FiO2 06/29/19 08:00 97.7 64 16 115/81 (92) 99 06/29/19 04:00 97.9 66 18 117/76 (90) 100 06/29/19 00:00 97.9 56 18 116/71 (86) 98 06/28/19 21:00 Room Air 06/28/19 20:00 98.8 67 18 143/74 (97) 98 06/28/19 16:00 98.0 67 17 129/81 (97) 97 68 06/28/19 13:23 99.2 Height (Feet): 5 Height (Inches): 4.00 Weight (Pounds): 116 Objective General Appearance: WD/WN Lines, tubes and drains: peripheral HEENT: normocephalic, atraumatic Neck: non-tender, normal alignment Respiratory/Chest: chest wall non-tender, lungs clear Cardiovascular/Chest: normal peripheral pulses Abdomen: normal bowel sounds, non tender Extremities: normal range of motion Skin Exam: normal pigmentation Neurologic: change analyst II-XII grossly normal Laboratory Tests Test 06/29/19 07:50 White Blood Count 6.5 K/UL (4.8-10.8) Red Blood Count 4.81 M/UL (4.20-5.40) Hemoglobin 14.6 G/DL (12.0-16.0) Hematocrit 44.8 % (37.0-47.0) Mean Corpuscular Volume 93 FL (80-99) Mean Corpuscular Hemoglobin 30.3 PG (27.0-31.0) Mean Corpuscular Hemoglobin Concent 32.6 G/DL (32.0-36.0) Red Cell Distribution Width 11.4 % (11.6-14.8) L Platelet Count 300 K/UL (150-450) Mean Platelet Volume 5.9 FL (6.5-10.1) L Neutrophils (%) (Auto) 66.1 % (45.0-75.0) Lymphocytes (%) (Auto) 23.0 % (20.0-45.0) Monocytes (%) (Auto) 8.6 % (1.0-10.0) Eosinophils (%) (Auto) 1.6 % (0.0-3.0) Basophils (%) (Auto) 0.7 % (0.0-2.0) Sodium Level 144 MMOL/L (136-145) Potassium Level 4.6 MMOL/L (3.5-5.1) Chloride Level 108 MMOL/L (98-107) H Carbon Dioxide Level 28 MMOL/L (21-32) Anion Gap 8 mmol/L (5-15) Blood Urea Nitrogen 2 mg/dL (7-18) L Creatinine 1.1 MG/DL (0.55-1.30) Estimat Glomerular Filtration Rate 58.3 mL/min (>60) Glucose Level 90 MG/DL (74-106) Calcium Level 9.3 MG/DL (8.5-10.1) Current Medications Medications (Trade) Dose Ordered Sig/Memo Route PRN Reason Start Time Stop Time Status Last Admin Dose Admin Acetaminophen (Tylenol) 650 mg Q4H PRN ORAL Mild Pain/Temp > 100.5 06/25/19 14:18 07/25/19 14:17 06/29/19 09:55 Cefoxitin Sodium 2 gm/Dextrose 110 ml @ 220 mls/hr Q6HR IVPB 06/25/19 18:00 07/02/19 17:59 06/29/19 12:30 Dextrose/Sodium Chloride 1,000 ml @ 75 mls/hr [id number] IV 06/25/19 08:00 07/25/19 07:59 06/29/19 05:21 Diphenhydramine HCl (Benadryl) 25 mg Q8H PRN ORAL Itching 06/27/19 07:15 07/27/19 07:14 06/28/19 06:30 Docusate Sodium (Colace) 100 mg TID PRN ORAL Constipation 06/28/19 22:00 07/28/19 21:59 06/29/19 05:21 Doxycycline Monohydrate (Doxycycline Monohydrate) 100 mg EVERY 12 HOURS ORAL 06/25/19 23:00 07/02/19 22:59 06/29/19 09:42 Fluoxetine HCl (PROzac) 40 mg DAILY ORAL 06/25/19 09:00 07/25/19 08:59 06/29/19 09:42 Iopamidol (Isovue-300 100ml) 100 ml NOW PRN INJ Radiology Procedure 06/25/19 02:00 Lorazepam (Ativan 2mg/ml 1ml) 0.5 mg Q4H PRN IV For Anxiety 06/25/19 07:15 07/02/19 07:14 06/27/19 06:28 Morphine Sulfate (Morphine Sulfate) 4 mg Q4H PRN IVP Moderate Pain (Pain Scale 4-6) 06/25/19 14:00 07/02/19 13:59 06/29/19 12:44 Ondansetron HCl (Zofran) 4 mg Q4H PRN IVP Nausea & Vomiting 06/25/19 07:15 07/25/19 07:14 06/29/19 09:42 Quetiapine Fumarate (SEROquel) 25 mg BEDTIME ORAL 06/28/19 21:00 07/25/19 08:59 06/28/19 20:54 Sennosides (Senokot) 8.6 mg DAILY PRN ORAL Constipation 06/28/19 22:00 07/28/19 21:59 Tracy Silver M.D. Jun 29, 2019 13:24
--- NOTE | 2019-06-29 13:33 | Consultation ---
Consult Note Consult Note GYNECOLOGY CONSULT NOTE CC: Pelvic pain, nausea, vomiting, with hemorrhagic cyst noted on US HPI: Patient is a 29yo G0 who was admitted with severe acute onset abdominal pain, nausea, and vomiting. Patient was recently admitted for nausea/vomiting and underwent GI workup, however this was different per patient. She was laying in bed on night when she began experiencing lower abdominal pain that got acutely worse and was accompanied with nausea and vomiting. She also endorsed a heaviness/pressure near her rectum. Pain at onset was 10/10. She has been receiving IV pain medications and is on empiric therapy for PID. Today she is feeling much better and she is currently denying pain. She still endorses some nausea that is moderately controlled with Zofran, but denies any emesis since yesterday. She had a bowel movement today. She reports that her pain has been improving. She is currently sitting up in bed comfortably and has eaten her breakfast and lunch. She had a loose stool today but otherwise denies any diarrhea. Denies fever or chills, chest pain, or shortness of breath. ROS: All pertinent positives and negatives as per HPI PMHx: Depression/Anxiety, Intractable Nausea/Vomiting (2 episodes over the last few months, requiring hospitalization) PSHx: Rhinoplasty 2y ago Meds: Prozac 60mg, Seroquel 25mg Allergies: NKDA, although developed some itching while in hospital yesterday OBHx: G0 GYNHx: LMP 06/25/19. Menses qmonth, light flow lasting 3d. Hx of Abnl Pap 10y ago s/p colpo/cxbx which were negative per patient. Denies STI. Reports a significant number of new partners this year, desires STI testing if not already done SocHx: Lives with family. Has had a stressful year. Not currently working. FamHx: Depression on both mother's and father's side Vitals: BP 115/81, P 64, Tlast 97.7, RR 16, O2 99% RA Exam: Gen: NAD HEENT: MMM, OP clear Neck: No obvious thyromegaly CV: No tachycardia Pulm: No increased work of breathing Abd: Soft, +guarding, +rebound, however exam well tolerated Pelvic: No bleeding at perineum, internal exam deferred Ext: No calf TTP Labs: Test 06/27/19 07:50 06/28/19 06:43 06/29/19 07:50 White Blood Count 7.0 K/UL (4.8-10.8) 6.9 K/UL (4.8-10.8) 6.5 K/UL (4.8-10.8) Red Blood Count 4.04 M/UL (4.20-5.40) 4.33 M/UL (4.20-5.40) 4.81 M/UL (4.20-5.40) Hemoglobin 12.4 G/DL (12.0-16.0) 13.2 G/DL (12.0-16.0) 14.6 G/DL (12.0-16.0) Hematocrit 37.5 % (37.0-47.0) 40.0 % (37.0-47.0) 44.8 % (37.0-47.0) Mean Corpuscular Volume 93 FL (80-99) 92 FL (80-99) 93 FL (80-99) Mean Corpuscular Hemoglobin 30.6 PG (27.0-31.0) 30.4 PG (27.0-31.0) 30.3 PG (27.0-31.0) Mean Corpuscular Hemoglobin Concent 33.0 G/DL (32.0-36.0) 33.0 G/DL (32.0-36.0) 32.6 G/DL (32.0-36.0) Red Cell Distribution Width 11.9 % (11.6-14.8) 11.5 % (11.6-14.8) 11.4 % (11.6-14.8) Platelet Count 197 K/UL (150-450) 244 K/UL (150-450) 300 K/UL (150-450) Mean Platelet Volume 6.5 FL (6.5-10.1) 6.4 FL (6.5-10.1) 5.9 FL (6.5-10.1) Neutrophils (%) (Auto) 67.3 % (45.0-75.0) 67.2 % (45.0-75.0) 66.1 % (45.0-75.0) Lymphocytes (%) (Auto) 21.6 % (20.0-45.0) 23.9 % (20.0-45.0) 23.0 % (20.0-45.0) Monocytes (%) (Auto) 8.3 % (1.0-10.0) 6.9 % (1.0-10.0) 8.6 % (1.0-10.0) Eosinophils (%) (Auto) 2.3 % (0.0-3.0) 1.3 % (0.0-3.0) 1.6 % (0.0-3.0) Basophils (%) (Auto) 0.6 % (0.0-2.0) 0.8 % (0.0-2.0) 0.7 % (0.0-2.0) Sodium Level 144 MMOL/L (136-145) 143 MMOL/L (136-145) 144 MMOL/L (136-145) Potassium Level 3.6 MMOL/L (3.5-5.1) 3.4 MMOL/L (3.5-5.1) 4.6 MMOL/L (3.5-5.1) Chloride Level 109 MMOL/L (98-107) 107 MMOL/L (98-107) 108 MMOL/L (98-107) Carbon Dioxide Level 25 MMOL/L (21-32) 27 MMOL/L (21-32) 28 MMOL/L (21-32) Anion Gap 10 mmol/L (5-15) 9 mmol/L (5-15) 8 mmol/L (5-15) Blood Urea Nitrogen 3 mg/dL (7-18) 2 mg/dL (7-18) 2 mg/dL (7-18) Creatinine 1.1 MG/DL (0.55-1.30) 1.3 MG/DL (0.55-1.30) 1.1 MG/DL (0.55-1.30) Estimat Glomerular Filtration Rate 58.3 mL/min (>60) 48.1 mL/min (>60) 58.3 mL/min (>60) Glucose Level 126 MG/DL (74-106) 90 MG/DL (74-106) 90 MG/DL (74-106) Calcium Level 8.4 MG/DL (8.5-10.1) 8.9 MG/DL (8.5-10.1) 9.3 MG/DL (8.5-10.1) Total Bilirubin 0.4 MG/DL (0.2-1.0) 0.3 MG/DL (0.2-1.0) Aspartate Amino Transf (AST/SGOT) 16 U/L (15-37) 17 U/L (15-37) Alanine Aminotransferase (ALT/SGPT) 19 U/L (12-78) 18 U/L (12-78) Alkaline Phosphatase 49 U/L (46-116) 52 U/L (46-116) Total Protein 6.8 G/DL (6.4-8.2) 7.3 G/DL (6.4-8.2) Albumin 3.2 G/DL (3.4-5.0) 3.3 G/DL (3.4-5.0) Globulin 3.6 g/dL 4.0 g/dL Albumin/Globulin Ratio 0.9 (1.0-2.7) 0.8 (1.0-2.7) Erythrocyte Sedimentation Rate 34 MM/HR (0-20) Phosphorus Level 3.5 MG/DL (2.5-4.9) Magnesium Level 1.9 MG/DL (1.8-2.4) C-Reactive Protein, Quantitative 4.0 mg/dL (0.00-0.90) Imaging: Abd/Pelvis CT (06/25): Findings: Lack of enteric contrast limits assessment of the GI tract. The appendix is only questionably identified. No definite findings to suggest acute appendicitis. There is a small amount of free intraperitoneal fluid adjacent to the tip of the right hepatic lobe. A few somewhat prominent fluid-filled small bowel loops are seen in the left lower quadrant. The distal esophagus, stomach, duodenum are unremarkable.. No evidence of diverticulosis or diverticulitis. A low-attenuation lesion is seen within segment 6 of the liver. This demonstrates a focus of nodular peripheral enhancement which wasn't evident previously. The gallbladder, bile ducts, pancreas, spleen, adrenals, kidneys are unremarkable. No retroperitoneal or mesenteric mass or adenopathy. Previously demonstrated left ovarian cyst is slightly smaller, currently 4.4 x 2.5 cm in diameter, previously 4.9 x 4. Uterus and right ovary are unremarkable. The bladder is distended The included lung bases demonstrate diffuse very mild groundglass opacity. The bones are unremarkable. Impression: Nonspecific mild fluid-filled left lower quadrant small bowel loops, . Indicate mild ileus or enteritis changes. Trace free intraperitoneal fluid Slightly decreased size left ovarian cyst Previously demonstrated subcentimeter right lobe hypodense lesion again demonstrated, too small to characterize. On current exam, peripheral nodular enhancement raises the possibility that this is a small hemangioma; this correlates with findings reported on prior sonogram of 05/17/2019 Pelvic US (06/25): Findings: The size, contour, and configuration of the uterus is within normal limits. The endometrium is uniformly echogenic and normal in thickness. Endometrium is 9 mm. Uterus measures 8.4 x 6.2 x 3.8 cm. The ovaries appear normal bilaterally with good dopplerable blood flow.. There is a prominent 3.8 cm hemorrhagic cyst with a fluid fluid level demonstrated within the left ovary There is no significant free fluid identified. Left ovary measures 7 x 5.8 x 2.8 cm. Right ovary 3 x 3.3 x 1.6 cm. IMPRESSION: Large left hemorrhagic cyst. Follow-up recommended in 6 weeks. Assessment/Plan 29yo admitted with acute onset severe lower abdominal pain, nausea, and vomiting , imaging demonstrating hemorrhagic cyst on the left. - Clinical condition improving, no indication for surgical intervention at this time - DDx includes ovarian torsion, however cyst <4cm and patient currently appears comfortable and is in NAD, which would not be expected with an ovarian torsion - additionally her pain is in her lower pelvis and not radiating to her flank or appreciated to be worse unilaterally which would also be expected with ovarian torsion. - Recommend DIALYSIS PATIENT CARE TECHNICIAN follow up with repeat US in 6 weeks - Continue pain management and antiemetics as indicated - Once patient is tolerating PO and her pain is well controlled on PO medications, patient can be discharged home with return precautions - Patient provided with names of providers who accept her insurance for follow up - Follow up STI testing prior to discharge Thank you for this interesting consult Helen Tim M.D. Jun 29, 2019 13:32
[2019-06-29] MEDS ORDERED: DOXYCYCLINE HY100 M2 ORAL (13:58)
[2019-06-29] MEDS ORDERED: ACETAMINOPHEN-1 EAC1 ORAL (14:00)
--- NOTE | 2019-06-29 14:00 | Pulmonology Progress Note ---
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 eating well continue current meds less pain dc home with abx as recommended by ID Subjective ROS Limited/Unobtainable: No Constitutional: Reports: no symptoms HEENT: Repors: no symptoms Respiratory: Reports: no symptoms Allergies: Coded Allergies: No Known Allergies (Unverified , 06/25/19) Objective Last 24 Hour Vital Signs Date Time Temp Pulse Resp B/P (MAP) Pulse Ox O2 Delivery O2 Flow Rate FiO2 06/29/19 13:14 97.7 06/29/19 12:00 98.0 70 18 116/84 (95) 99 06/29/19 09:00 Room Air 06/29/19 08:00 97.7 64 16 115/81 (92) 99 06/29/19 04:00 97.9 66 18 117/76 (90) 100 06/29/19 00:00 97.9 56 18 116/71 (86) 98 06/28/19 21:00 Room Air 06/28/19 20:00 98.8 67 18 143/74 (97) 98 06/28/19 16:00 98.0 67 17 129/81 (97) 97 68 Intake and Output 06/28/19 06/29/19 19:00 07:00 Intake Total 1860 ml 785 ml Balance 1860 ml 785 ml Intake Oral 1600 ml IV Total 260 ml 785 ml # Voids 6 2 General Appearance: WD/WN HEENT: normocephalic, atraumatic Respiratory/Chest: no respiratory distress Cardiovascular: normal peripheral pulses, regular rhythm Genitourinary: normal external genitalia Extremities: no cyanosis, no clubbing Skin: no rash Laboratory Tests 06/29/19 07:50: White Blood Count 6.5, Red Blood Count 4.81, Hemoglobin 14.6, Hematocrit 44.8, Mean Corpuscular Volume 93, Mean Corpuscular Hemoglobin 30.3, Mean Corpuscular Hemoglobin Concent 32.6, Red Cell Distribution Width 11.4L, Platelet Count 300, Mean Platelet Volume 5.9L, Neutrophils (%) (Auto) 66.1, Lymphocytes (%) (Auto) 23.0, Monocytes (%) (Auto) 8.6, Eosinophils (%) (Auto) 1.6, Basophils (%) (Auto ) 0.7, Sodium Level 144, Potassium Level 4.6, Chloride Level 108H, Carbon Dioxide Level 28, Anion Gap 8, Blood Urea Nitrogen 2L, Creatinine 1.1, Estimat Glomerular Filtration Rate 58.3, Glucose Level 90, Calcium Level 9.3 Current Medications Medications (Trade) Dose Ordered Sig/Memo Route PRN Reason Start Time Stop Time Status Last Admin Dose Admin Acetaminophen (Tylenol) 650 mg Q4H PRN ORAL Mild Pain/Temp > 100.5 06/25/19 14:18 07/25/19 14:17 06/29/19 09:55 Dextrose/Sodium Chloride 1,000 ml @ 75 mls/hr [id number] IV 06/25/19 08:00 07/25/19 07:59 06/29/19 05:21 Diphenhydramine HCl (Benadryl) 25 mg Q8H PRN ORAL Itching 06/27/19 07:15 07/27/19 07:14 06/28/19 06:30 Docusate Sodium (Colace) 100 mg TID PRN ORAL Constipation 06/28/19 22:00 07/28/19 21:59 06/29/19 05:21 Doxycycline Monohydrate (Doxycycline Monohydrate) 100 mg EVERY 12 HOURS ORAL 06/25/19 23:00 07/02/19 22:59 06/29/19 09:42 Fluoxetine HCl (PROzac) 40 mg DAILY ORAL 06/25/19 09:00 07/25/19 08:59 06/29/19 09:42 Iopamidol (Isovue-300 100ml) 100 ml NOW PRN INJ Radiology Procedure 06/25/19 02:00 Lorazepam (Ativan 2mg/ml 1ml) 0.5 mg Q4H PRN IV For Anxiety 06/25/19 07:15 07/02/19 07:14 06/27/19 06:28 Morphine Sulfate (Morphine Sulfate) 4 mg Q4H PRN IVP Moderate Pain (Pain Scale 4-6) 06/25/19 14:00 07/02/19 13:59 06/29/19 12:44 Ondansetron HCl (Zofran) 4 mg Q4H PRN IVP Nausea & Vomiting 06/25/19 07:15 10/5/19 07:14 06/29/19 09:42 Quetiapine Fumarate (SEROquel) 25 mg BEDTIME ORAL 06/28/19 21:00 07/25/19 08:59 06/28/19 20:54 Sennosides (Senokot) 8.6 mg DAILY PRN ORAL Constipation 06/28/19 22:00 07/28/19 21:59 Mireya William MD Jun 29, 2019 14:00
[2019-06-29 16:00] VITALS: BP 115/89
--- NOTE | 2019-06-29 17:43 | NUR ---
NURSE NOTES: PATIENT DISCHARGED TO HOME, LEFT ALERT AND ORIENTED X4 WITH DISCHARGE INSTRUCTIONS AND PRESCRIBED PRESCRIPTION, OFFERED TO FILL ACROSS THE STREET BUT PATIENT PREFERRED TO USE HER HOME PHARMACY. IV REMOVED ALONG WITH ID BRACELET, NO SIGNS OF HEMATOMA FROM IV SITE. PATIENT LEFT WITH HER MOTHER. INSTRUCTIONS TO FOLLOW UP WITH PRIMARY MD.
--- NOTE | 2019-06-29 19:42 | Discharge Summary ---
Discharge Summary Discharge Summary _ DATE OF ADMISSION: 06/25/2019 DATE OF DISCHARGE: 06/29/2019 DISCHARGED BY: Dr. Yoder REASON FOR ADMISSION: 29 years old female with history of cyclic vomiting syndrome , presented with acute onset of severe abdominal pain with nausea and nonbloody nonbilious vomiting. No diarrhea. No urinary complaints. No fevers no chills. Upon evaluation vital signs were stable. Laboratory work-up revealed leukocytosis with WBC 24.9, stable hemoglobin and hematocrit. Stable electrolytes and renal parameters. Urinalysis revealed +1 blood, but no evidence of urinary tract infection. Urine test was negative. CT of the abdomen and pelvis revealed nonspecific mild fluid-filled left lower quadrant small bowel loops possibly indicative of enteritis changes. Left ovarian cyst. Trace free intraperitoneal fluid. No evidence of obstruction.. On prior admission she had hemorrhagic cyst on the left. Patient subsequently admitted to medical surgical floor for further management. CONSULTANTS: hospitalist Dr. William ID specialist Dr. Silver ADOPTION COORDINATOR Dr. Tim HOSPITAL COURSE: Patient admitted and kept initially n.p.o. Patient started on the IV fluids and empiric antibiotic. Pain management was addressed. DVT prophylaxis provided. CALL CENTER OPERATOR specialist seen and evaluated patient. Patient subsequently undergone transvaginal ultrasound, which revealed large left hemorrhagic cyst. Pain management was addressed as needed. Antiemetic provided as needed. Patient slowly started on clear liquid diet and was advanced as tolerated. ID specialist followed. Severe acute abdominal pain with associated nausea and vomiting was likely due to large left hemorrhagic cyst. Patient was on empiric IV cefoxitin and oral doxycycline for possible PID , given leukocytosis and fever as per ID specialist recommendation. Patient was discharged on oral doxycycline for total of 14 days, pending chlamydia and gonorrhea results. Leukocytosis and fever resolved. Rapid HIV test was negative. If GC/CL result negative, discontinue doxycycline, as per ID specialist recommendation. Patient was able to tolerate diet. Patient clinically stabilized and was ready for discharge home CALL CENTER OPERATOR specialist recommended follow-up with transvaginal ultrasound in 6 weeks. Patient provided with name of providers, who will accept her insurance for follow-up. FINAL DIAGNOSES: Leukocytosis Left hemorrhagic cyst Possible pelvic inflammatory disease Cyclic vomiting syndrome DISCHARGE MEDICATIONS: See Medication Reconciliation list. DISCHARGE INSTRUCTIONS: Patient was discharged home. Outpatient follow-up with CALL CENTER OPERATOR as per her insurance. I have been assigned to dictate discharge summary for this account. I was not involved in the patient's management. Elizabeth Gabriel NP Jun 29, 2019 19:42
--- NOTE | 2019-06-30 15:21 | NUR ---
*-* INSURANCE *-* DISCHARGE SUMMARY HAS BEEN FAXED TO: [facility] TELECOMMUNICATIONS SPECIALIST ASSIGNED AT THIS TIME PLEASE FAX THE REVIEW/CLINICAL P- [phone] F- [phone]....REVIEW/CLINICAL
== END 2019-06-29 17:45 | disposition home or self-care (01) | DRG 531 ==
LOC: EMR 01:30 → 4E 03:03 → EDBEDREQ 03:56
DX: N73.9 Female pelvic inflammatory disease, unspecified (principal); N83.202 Unspecified ovarian cyst, left side; G43.A0 Cyclical vomiting, in migraine, not intractable
CPT/HCPCS: 36415; 74177; 76830; 76856; 80048; 80053; 81003; 81025; 83690; 83735; 84100; 85007; 85025; 85651; 86140; 86592; 86703; 87491; 87590; 96361; 96374; 96375; 96376; 99285; J2405; J8499

== ENCOUNTER 2019-10-01 04:24 | Inpatient (IN) | payer OTHER ==
[~2019-10-01] VITALS: Ht 162.6 cm; Wt 49.9 kg
[~2019-10-01 04:24] MED LIST changes: +ACETAMINOPHEN-1 EAC1 ORAL; +DOXYCYCLINE HY100 M2 ORAL; +FLUOXETINE HCL20 M2 ORAL
[2019-10-01] MEDS ORDERED: DOXYCYCLINE HYC20 M1 PO (04:38)
[2019-10-01] MEDS ORDERED: PROZAC10 MG ORAL (04:38)
[2019-10-01] MEDS ORDERED: SEROQUEL50 MG ORAL (04:38)
[2019-10-01 04:40] VITALS: BP 104/58
--- NOTE | 2019-10-01 04:40 | NUR ---
ER Nurse Note: Pt walked in c/o RUQ pain; worsening pain since 09/30 afternoon. Pt stated she is currently on her menstural cycle but the pain feels different from the cramps. Pain 10/10 sharp non radiating pain. Pt is moaning, guarding site. Pain is worse with pressure and movement. Pt stated she has nausea but no vomiting. Per family member at bedside, pt had stomach pain since February and was at the ER for same s/s before. SLIV established; blood drawn and sent to lab. All safety measures met; will continue to [place].
--- NOTE | 2019-10-01 04:52 | Emergency Room Report ---
History of Present Illness General Chief Complaint: Abdominal Pain Source: Patient, Medical Record (Gonzalo Han MD) Present Illness HPI Patient is a 29-year-old female presents after increased severe right-sided abdominal cramping. Patient had prior history of recent antibiotic use due to H. pylori infection. She states she is taking doxycycline twice a day. She had prior history of cyclic vomiting. She reports having currently being on her menses. She reports having severe cramping and pain to the lower abdomen. This was unrelieved by Aleve. She denies any fever. She states that she is also taking Zoloft as well as Seroquel. Patient had acute onset of pain patient stated this had gotten worse today. Previously with ultrasound with a hemorhagic ovarian cyst. Reports seeing hospice community liaison in [place] and that this had resolved. (Gonzalo Han MD) Allergies: Coded Allergies: No Known Allergies (Unverified , 06/25/19) Patient History Past Medical History: see triage record Now: No Reviewed Nursing Documentation: PMH: Agreed; PSxH: Agreed (Gonzalo Han MD) Nursing Documentation-PMH Past Medical History: No History, Except For Hx Cardiac Problems: No Hx Cancer: No Hx Gastrointestinal Problems: Yes - H-PYLORI History Of Psychiatric Problem: Yes Hx Neurological Problems: No (Gonzalo Han MD) Review of Systems All Other Systems: negative except mentioned in HPI (Gonzalo Han MD) Physical Exam Vital Signs Date Time Temp Pulse Resp B/P (MAP) Pulse Ox O2 Delivery O2 Flow Rate FiO2 10/01/19 04:35 98.6 88 18 104/58 (73) 98 Room Air Sp02 EP Interpretation: reviewed, normal General Appearance: alert, GCS 15, moderate distress Head: atraumatic ENT: normal ENT inspection, hearing grossly normal, normal voice Neck: normal inspection, full range of motion, supple, no bony tend Respiratory: normal inspection, lungs clear, normal breath sounds, no respiratory distress, no retraction, no wheezing Cardiovascular #1: regular rate, rhythm, no edema Gastrointestinal: soft, no guarding, no hernia, tenderness - suprapubic Genitourinary: no CVA tenderness Musculoskeletal: normal inspection, back normal, normal range of motion Neurologic: alert, motor strength/tone normal, emergency manager III-XII nml as tested, oriented x3, sensory intact, responsive, speech normal, normal inspection Psychiatric: normal inspection, mood/affect normal, anxious Skin: no rash (Gonzalo Han MD) Medical Decision Making Diagnostic Impression: Primary Impression: Pelvic inflammatory disease, female ER Course Patient presented for abdominal pain. Differential diagnosis include was not limited to pelvic inflammatory disease, ovarian cyst, torsion among others. Patient had prior history of hemorrhagic cyst to the ovaries. Laboratory testing was ordered as well as pelvic ultrasound. Patient was noted to be currently taking doxycycline. Patient had reported having increased pain and sharp pain consistent with pelvic disease. Pelvic ultrasound is currently pending. Patient endorsed to Dr. Ceballos pending ultrasound and likely hospitalization due to worsening abdominal pain. Labs Test 10/01/19 04:40 White Blood Count 20.6 K/UL (4.8-10.8) Red Blood Count 4.43 M/UL (4.20-5.40) Hemoglobin 12.9 G/DL (12.0-16.0) Hematocrit 39.3 % (37.0-47.0) Mean Corpuscular Volume 89 FL (80-99) Mean Corpuscular Hemoglobin 29.2 PG (27.0-31.0) Mean Corpuscular Hemoglobin Concent 32.8 G/DL (32.0-36.0) Red Cell Distribution Width 11.7 % (11.6-14.8) Platelet Count 276 K/UL (150-450) Mean Platelet Volume 6.6 FL (6.5-10.1) Neutrophils (%) (Auto) % (45.0-75.0) Lymphocytes (%) (Auto) % (20.0-45.0) Monocytes (%) (Auto) % (1.0-10.0) Eosinophils (%) (Auto) % (0.0-3.0) Basophils (%) (Auto) % (0.0-2.0) Differential Total Cells Counted 100 Neutrophils % (Manual) 82 % (45-75) Lymphocytes % (Manual) 11 % (20-45) Monocytes % (Manual) 7 % (1-10) Eosinophils % (Manual) 0 % (0-3) Basophils % (Manual) 0 % (0-2) Band Neutrophils 0 % (0-8) Platelet Estimate Adequate Platelet Morphology Normal Sodium Level 136 MMOL/L (136-145) Potassium Level 3.7 MMOL/L (3.5-5.1) Chloride Level 102 MMOL/L (98-107) Carbon Dioxide Level 25 MMOL/L (21-32) Anion Gap 9 mmol/L (5-15) Blood Urea Nitrogen 9 mg/dL (7-18) Creatinine 0.8 MG/DL (0.55-1.30) Estimat Glomerular Filtration Rate > 60 mL/min (>60) Glucose Level 117 MG/DL (74-106) Calcium Level 8.5 MG/DL (8.5-10.1) Total Bilirubin 0.4 MG/DL (0.2-1.0) Aspartate Amino Transf (AST/SGOT) 18 U/L (15-37) Alanine Aminotransferase (ALT/SGPT) 18 U/L (12-78) Alkaline Phosphatase 45 U/L (46-116) Total Protein 6.9 G/DL (6.4-8.2) Albumin 3.5 G/DL (3.4-5.0) Globulin 3.4 g/dL Albumin/Globulin Ratio 1.0 (1.0-2.7) Lipase 121 U/L (73-393) (Gonzalo Han MD) ER Course This patient was turned over to ms by Dr. Han. Patient has a history of PID and presented with abdominal pain. She was pending labs and a pelvic ultrasound. Patient's white blood cell count was elevated at 20,000. The patient's ultrasound did show a left ovarian hemorrhagic cyst. No evidence of ovarian torsion. She is admitted for PID and further evaluation and treatment by CYBER FORENSICS ANALYST. Laboratory Tests Test 10/01/19 04:40 10/01/19 05:50 White Blood Count 20.6 K/UL (4.8-10.8) H Red Blood Count 4.43 M/UL (4.20-5.40) Hemoglobin 12.9 G/DL (12.0-16.0) Hematocrit 39.3 % (37.0-47.0) Mean Corpuscular Volume 89 FL (80-99) Mean Corpuscular Hemoglobin 29.2 PG (27.0-31.0) Mean Corpuscular Hemoglobin Concent 32.8 G/DL (32.0-36.0) Red Cell Distribution Width 11.7 % (11.6-14.8) Platelet Count 276 K/UL (150-450) Mean Platelet Volume 6.6 FL (6.5-10.1) Neutrophils (%) (Auto) % (45.0-75.0) Lymphocytes (%) (Auto) % (20.0-45.0) Monocytes (%) (Auto) % (1.0-10.0) Eosinophils (%) (Auto) % (0.0-3.0) Basophils (%) (Auto) % (0.0-2.0) Differential Total Cells Counted 100 Neutrophils % (Manual) 82 % (45-75) H Lymphocytes % (Manual) 11 % (20-45) L Monocytes % (Manual) 7 % (1-10) Eosinophils % (Manual) 0 % (0-3) Basophils % (Manual) 0 % (0-2) Band Neutrophils 0 % (0-8) Platelet Estimate Adequate Platelet Morphology Normal Sodium Level 136 MMOL/L (136-145) Potassium Level 3.7 MMOL/L (3.5-5.1) Chloride Level 102 MMOL/L (98-107) Carbon Dioxide Level 25 MMOL/L (21-32) Anion Gap 9 mmol/L (5-15) Blood Urea Nitrogen 9 mg/dL (7-18) Creatinine 0.8 MG/DL (0.55-1.30) Estimate Glomerular Filtration Rate > 60 mL/min (>60) Glucose Level 117 MG/DL (74-106) H Calcium Level 8.5 MG/DL (8.5-10.1) Total Bilirubin 0.4 MG/DL (0.2-1.0) Aspartate Amino Transferase (AST) 18 U/L (15-37) Alanine Aminotransferase (ALT) 18 U/L (12-78) Alkaline Phosphatase 45 U/L (46-116) L Total Protein 6.9 G/DL (6.4-8.2) Albumin 3.5 G/DL (3.4-5.0) Globulin 3.4 g/dL Albumin/Globulin Ratio 1.0 (1.0-2.7) Lipase 121 U/L (73-393) Urine Color Pale yellow Urine Appearance Clear Urine pH 7 (4.5-8.0) Urine Specific [place] 1.005 (1.005-1.035) Urine Protein Negative (NEGATIVE) Urine Glucose (UA) Negative (NEGATIVE) Urine Ketones Negative (NEGATIVE) Urine Blood 1+ (NEGATIVE) H Urine Nitrite Negative (NEGATIVE) Urine Bilirubin Negative (NEGATIVE) Urine Urobilinogen Normal MG/DL (0.0-1.0) Urine Leukocyte Esterase 1+ (NEGATIVE) H Urine RBC 0-2 /HPF (0 - 2) Urine WBC 0-2 /HPF (0 - 2) Urine Squamous Epithelial Cells Few /LPF (NONE/OCC) Urine Bacteria Few /HPF (NONE) Urine HCG, Qualitative Negative (NEGATIVE) (Sravanthi Perry DO) Last Vital Signs Date Time Temp Pulse Resp B/P (MAP) Pulse Ox O2 Delivery O2 Flow Rate FiO2 10/01/19 04:35 98.6 88 18 104/58 (73) 98 Room Air Status: improved (Gonzalo Han MD) Disposition: ADMITTED INPATIENT Condition: Stable Gonzalo Han MD Oct 01, 2019 04:52 Sravanthi Perry DO Oct 01, 2019 09:15
[2019-10-01 04:56] LABS: HEMATOCRIT 39.3 % (37.0-47.0); HEMOGLOBIN 12.9 G/DL (12.0-16.0); MEAN CORPUSCULAR VOLUME 89 FL (80-99); PLATELET COUNT 276 K/UL (150-450); RED BLOOD COUNT 4.43 M/UL (4.20-5.40); RED CELL DISTRIBUTION WIDTH 11.7 % (11.6-14.8); WHITE BLOOD COUNT 20.6 K/UL (4.8-10.8)
[2019-10-01 05:00] LABS: ANION GAP 9 mmol/L (5-15); BLOOD UREA NITROGEN 9 mg/dL (7-18); CALCIUM 8.5 MG/DL (8.5-10.1); CARBON DIOXIDE 25 MMOL/L (21-32); CHLORIDE 102 MMOL/L (98-107); CREATININE 0.8 MG/DL (0.55-1.30); POTASSIUM 3.7 MMOL/L (3.5-5.1); SODIUM 136 MMOL/L (136-145)
[2019-10-01] MEDS ORDERED: Morphine Sulfate 4mg/ml Inj (IV USE ONLY) IVP ONE ×2 (05:00→08:45)
[2019-10-01 05:10] LABS: ALANINE AMINOTRANSFERASE 18 U/L (12-78); ALBUMIN 3.5 G/DL (3.4-5.0); ALKALINE PHOSPHATASE 45 U/L (46-116); ASPARTATE AMINO TRANSFERASE 18 U/L (15-37); BILIRUBIN,TOTAL 0.4 MG/DL (0.2-1.0)
[2019-10-01 06:00] LABS: APPEARANCE,URINE CLEAR; BILIRUBIN, URINE NEGATIVE (NEGATIVE); COLOR,URINE PALE YELLOW; GLUCOSE, URINE (UA) NEGATIVE (NEGATIVE); KETONES,URINE NEGATIVE (NEGATIVE); LEUKOCYTE ESTERASE ,URINE 1+ (NEGATIVE); NITRITE,URINE NEGATIVE (NEGATIVE); PH,URINE 7 (4.5-8.0); PROTEIN,URINE NEGATIVE (NEGATIVE); UROBILINOGEN,URINE NORMAL MG/DL (0.0-1.0)
[2019-10-01] MEDS ORDERED: cefTRIAXone 2 GM in NS 55 ML IVPB ONE (06:00)
[2019-10-01] MEDS ORDERED: LORazepam Inj 2mg/ml 1ml IV ONE (06:00)
[2019-10-01 06:09] VITALS: BP 101/57
--- NOTE | 2019-10-01 06:41 | NUR ---
ER Nurse Note: Spoke with case therapist and updated her on pt condition. All orders completed per ERMD orders. US at pt side. All safety measures met; will continue to [place].
[2019-10-01] MEDS ORDERED: Doxycycline Monohydrate 100mg ORAL ONE (07:00)
--- NOTE | 2019-10-01 07:07 | NUR ---
ER Nurse Note: US in progress. Pt stable. SLIV RT AC; patent. All safety measures met, will endorse to [facility] for continuity of care.
[2019-10-01 07:26] VITALS: BP 98/64
--- NOTE | 2019-10-01 07:27 | NUR ---
ED Nurse Note: Received patient in bed, patient a/o x4, receiving pelvic u/s at bedside. patient on a septic tank setter.
--- NOTE | 2019-10-01 07:44 | NUR ---
ED Nurse Note: pelvic u/s done, pt requesting to take prozac 60mg as her daily schedule, DR Rea made aware.
[2019-10-01] MEDS ORDERED: Miralax 17gm pkt ORAL PRN (08:15)
[2019-10-01] MEDS ORDERED: Nitroglycerin Subl 0.4mg tab SL PRN (08:15)
[2019-10-01] MEDS ORDERED: Metoclopramide 10mg/2ml Inj IVP PRN (08:15)
[2019-10-01] MEDS ORDERED: LORazepam Inj 2mg/ml 1ml IV PRN (08:15)
[2019-10-01] MEDS ORDERED: Pantoprazole Inj IV SCH (09:00)
[2019-10-01] MEDS ORDERED: Heparin 5000 units/ml inj SUBQ SCH (09:00)
--- NOTE | 2019-10-01 09:50 | Diagnostic Imaging Report ---
Indication: Pelvic pain. Reportedly not . Technique: Transabdominal and endovaginal pelvic ultrasound was performed. Impression: 06/25/2019 Findings: Imaged portions of the urinary bladder are unremarkable in appearance. Uterus is unremarkable in appearance. Endometrium measures 6.5 mm in thickness, within normal limits for the reproductive age female. Right ovary is normal in appearance. It measures 3.1 x 2.2 x 2.8 cm/9.6 mL. Color and Doppler flow to the right ovary is documented. There is a large left adnexal lesion contains lacy internal echoes. This lesion measures 5.5 x 2.6 cm. Color and Doppler flow in the left ovary is demonstrated. No free pelvic fluid is visualized. Impression: Persistent complex left adnexal mass, increased in size from the prior exam (previously measuring 3.6 cm and currently measuring 5.5 cm). This may represent a hemorrhagic cyst. Additional etiologies including endometrioma also be considered. Follow-up in 6 weeks' time is recommended to assess for interval change. Gynecologic follow-up recommended. * Color and Doppler flow visualized in the bilateral ovaries.
--- NOTE | 2019-10-01 09:53 | NUR ---
ED Nurse Note: patient is resting comfortably in bed, eyes closed, snoring.
[2019-10-01 09:54] VITALS: BP 105/64
--- NOTE | 2019-10-01 10:21 | NUR ---
ED Nurse Note: report given to LAWSON Martell. endorsed all plan of care to Kami PATHAK.
--- NOTE | 2019-10-01 10:40 | NUR ---
ED Nurse Note: patient being transferred to with all of her belongings without complications.
[2019-10-01] MEDS: Heparin 5000 units/ml inj SUBQ SCH ×2 (11:00→20:30)
--- NOTE | 2019-10-01 11:03 | NUR ---
NURSE NOTES: I received telephone report from LAWSON Chahal from ER; patient came the floor by jacek; alert x4; on room air, no sing of distress and shortness of breath; no sing of chest pain; IV Right AC 18G flushes well; belonging list signed by transferring nurse and receiving nurse; patient has period and period pads provided; vital sings taken upon arrival to the unit; patient complaining abdominal pain /; side rails up x2, breaks engaged, bed at lowest position; call light within reach; will keep monitoring.
[2019-10-01] MEDS: D5 1/2NS 1,000 ML IV SCH ×2 (11:53→21:30)
[2019-10-01] MEDS: Pantoprazole Inj IV SCH (11:53)
[2019-10-01] MEDS: Morphine Sulfate 2mg/ml Inj(IV/IM USE ONLY) IVP PRN ×3 (11:55→20:19)
--- NOTE | 2019-10-01 13:32 | Consultation ---
History of Present Illness General Date patient seen: Oct 01, 2019 Chief Complaint: Abdominal Pain Present Illness HPI 29 y/o F iwth hx of MDD, cyclic vomiting, H. pylori, recently treated presented to ED on 10/01 with R side abdominal cramping. She is currently on her menstrual period. Pain is severe and unrelieved by Aleve. Denied fever. Allergies: Coded Allergies: No Known Allergies (Unverified , 06/25/19) Medication History Scheduled Doxycycline Hyclate (Doxycycline Hyclate), 100 MG ORAL EVERY 12 HOURS Fluoxetine Hcl* (Fluoxetine Hcl*), 60 MG ORAL DAILY, (Reported) Fluoxetine Hcl* (Prozac*), Unknown Dose ORAL DAILY, (Reported) Quetiapine Fumarate (Seroquel), Unknown Dose ORAL QHS, (Reported) Quetiapine Fumarate* (Seroquel*), 25 MG ORAL DAILY, (Reported) Scheduled PRN Acetaminophen With Codeine (T#3) (Tylenol #3 Tab*), 1 TAB ORAL Q4H PRN Miscellaneous Medications Doxycycline Hyclate (Doxycycline Hyclate), Unknown Dose PO, (Reported) Patient History Healthcare decision maker Resuscitation status Advanced Directive on File Patient History Narrative Pmhx: as above Shx: reviewed Fhx: non contributory Review of Systems All Other Systems: negative except mentioned in HPI Physical Exam Physical Exam Narrative General Appearance: normal inspection, well appearing, no apparent distress, alert, GCS 15 Head: atraumatic ENT: normal ENT inspection, hearing grossly normal, normal voice Neck: normal inspection, full range of motion, supple, no bony tend Respiratory: normal inspection, lungs clear, normal breath sounds, no respiratory distress, no retraction, no wheezing Cardiovascular #1: regular rate, rhythm, no edema Gastrointestinal: normal inspection, normal bowel sounds, non tender, soft, no guarding, no hernia Genitourinary: no CVA tenderness Musculoskeletal: normal inspection, back normal, normal range of motion Neurologic: alert, motor strength/tone normal, hot metal crane operator III-XII nml as tested, oriented x3, sensory intact, responsive, speech normal, normal inspection Last 24 Hour Vital Signs Date Time Temp Pulse Resp B/P (MAP) Pulse Ox O2 Delivery O2 Flow Rate FiO2 10/01/19 13:08 Room Air 10/01/19 12:25 98.6 10/01/19 10:40 98.6 67 15 105/64 100 Room Air 10/01/19 09:54 98.6 67 15 105/64 100 Room Air 10/01/19 09:30 98.6 10/01/19 07:26 98.6 87 24 98/64 100 Room Air 10/01/19 06:09 98.6 79 16 101/57 100 Room Air 10/01/19 05:33 98.6 10/01/19 04:40 88 18 Room Air 10/01/19 04:40 98.6 86 18 104/58 98 Room Air 10/01/19 04:35 98.6 88 18 104/58 (73) 98 Room Air Intake and Output 09/30/19 10/01/19 18:59 06:59 Intake Total 1000 ml Balance 1000 ml Intake IV Total 1000 ml Laboratory Tests Test 10/01/19 04:40 10/01/19 05:50 White Blood Count 20.6 K/UL (4.8-10.8) H Red Blood Count 4.43 M/UL (4.20-5.40) Hemoglobin 12.9 G/DL (12.0-16.0) Hematocrit 39.3 % (37.0-47.0) Mean Corpuscular Volume 89 FL (80-99) Mean Corpuscular Hemoglobin 29.2 PG (27.0-31.0) Mean Corpuscular Hemoglobin Concent 32.8 G/DL (32.0-36.0) Red Cell Distribution Width 11.7 % (11.6-14.8) Platelet Count 276 K/UL (150-450) Mean Platelet Volume 6.6 FL (6.5-10.1) Neutrophils (%) (Auto) % (45.0-75.0) Lymphocytes (%) (Auto) % (20.0-45.0) Monocytes (%) (Auto) % (1.0-10.0) Eosinophils (%) (Auto) % (0.0-3.0) Basophils (%) (Auto) % (0.0-2.0) Differential Total Cells Counted 100 Neutrophils % (Manual) 82 % (45-75) H Lymphocytes % (Manual) 11 % (20-45) L Monocytes % (Manual) 7 % (1-10) Eosinophils % (Manual) 0 % (0-3) Basophils % (Manual) 0 % (0-2) Band Neutrophils 0 % (0-8) Platelet Estimate Adequate Platelet Morphology Normal Sodium Level 136 MMOL/L (136-145) Potassium Level 3.7 MMOL/L (3.5-5.1) Chloride Level 102 MMOL/L (98-107) Carbon Dioxide Level 25 MMOL/L (21-32) Anion Gap 9 mmol/L (5-15) Blood Urea Nitrogen 9 mg/dL (7-18) Creatinine 0.8 MG/DL (0.55-1.30) Estimat Glomerular Filtration Rate > 60 mL/min (>60) Glucose Level 117 MG/DL (74-106) H Calcium Level 8.5 MG/DL (8.5-10.1) Total Bilirubin 0.4 MG/DL (0.2-1.0) Aspartate Amino Transf (AST/SGOT) 18 U/L (15-37) Alanine Aminotransferase (ALT/SGPT) 18 U/L (12-78) Alkaline Phosphatase 45 U/L (46-116) L Total Protein 6.9 G/DL (6.4-8.2) Albumin 3.5 G/DL (3.4-5.0) Globulin 3.4 g/dL Albumin/Globulin Ratio 1.0 (1.0-2.7) Lipase 121 U/L (73-393) Urine Color Pale yellow Urine Appearance Clear Urine pH 7 (4.5-8.0) Urine Specific [place] 1.005 (1.005-1.035) Urine Protein Negative (NEGATIVE) Urine Glucose (UA) Negative (NEGATIVE) Urine Ketones Negative (NEGATIVE) Urine Blood 1+ (NEGATIVE) H Urine Nitrite Negative (NEGATIVE) Urine Bilirubin Negative (NEGATIVE) Urine Urobilinogen Normal MG/DL (0.0-1.0) Urine Leukocyte Esterase 1+ (NEGATIVE) H Urine RBC 0-2 /HPF (0 - 2) Urine WBC 0-2 /HPF (0 - 2) Urine Squamous Epithelial Cells Few /LPF (NONE/OCC) Urine Bacteria Few /HPF (NONE) Urine HCG, Qualitative Negative (NEGATIVE) Height (Feet): 5 Height (Inches): 4.00 Weight (Pounds): 110 Medications Current Medications Medications (Trade) Dose Ordered Sig/Memo Route PRN Reason Start Time Stop Time Status Last Admin Dose Admin Acetaminophen (Tylenol) 650 mg Q4H PRN ORAL fever 12/12/19 08:15 10/31/19 08:14 Dextrose (Dextrose 50%) 25 ml Q30M PRN IV Hypoglycemia 10/01/19 08:15 10/31/19 08:14 Dextrose (Dextrose 50%) 50 ml Q30M PRN IV Hypoglycemia 10/01/19 08:15 10/31/19 08:14 Dextrose/Sodium Chloride 1,000 ml @ 75 mls/hr [id number] IV 10/01/19 08:10 10/31/19 08:09 10/01/19 11:53 Diphenhydramine HCl (Benadryl) 25 mg Q6H PRN ORAL Itching/Pruritis 10/01/19 08:15 10/31/19 08:14 Heparin Sodium (Porcine) (Heparin 5000 units/ml) 5,000 units EVERY 12 HOURS SUBQ 10/01/19 11:00 10/31/19 10:59 Lorazepam (Ativan 2mg/ml 1ml) 1 mg Q4H PRN IV agitation 10/01/19 08:15 10/08/19 08:14 Metoclopramide HCl (Reglan) 10 mg EVERY 6 HOURS PRN IVP servere nauasea 10/01/19 08:15 10/31/19 08:14 Morphine Sulfate (Morphine Sulfate) 2 mg EVERY 4 HOURS PRN IVP severe Pain (Pain Scale 7-10) 10/01/19 08:15 10/08/19 08:14 10/01/19 11:55 Nitroglycerin (Ntg) 0.4 mg Q5M X 3 DOSES PRN SL Prn Chest Pain 10/01/19 08:15 10/31/19 08:14 Ondansetron HCl (Zofran) 4 mg Q6H PRN IVP Nausea & Vomiting 10/01/19 08:15 10/31/19 08:14 Pantoprazole (Protonix) 40 mg DAILY IV 10/01/19 11:00 10/31/19 10:59 10/01/19 11:53 Piperacillin Sod/ Tazobactam Sod 3.375 gm/Sodium Chloride 110 ml @ 27.5 mls/hr EVERY 8 HOURS IVPB 10/01/19 14:00 10/06/19 13:59 Polyethylene Glycol (Miralax) 17 gm HSPRN PRN ORAL Constipation 10/01/19 08:15 10/31/19 08:14 Promethazine HCl (Phenergan) 25 mg Q6H PRN IM Refractory N/V 10/01/19 08:15 10/06/19 08:14 Temazepam (Restoril) 15 mg HSPRN PRN ORAL Insomnia 10/01/19 08:15 10/08/19 08:14 Assessment/Plan Assessment/Plan: Abx: Zosyn 10/01- Ceftriaxone x1 10/01 Doxycycline x1 10/01 Assessment: Acute R side abd pain- likely from hemorrhagic ovarian cyst (patient currently on menstrual period)- will r/o other intraabdominal etiologies given severity of pain and that pain is mainly on RLQ and cyst is on the left- r/o acute appendicitis -transvaginal/pelvic US: Persistent complex left adnexal mass, increased in size from the prior exam (previously measuring 3.6 cm and currently measuring 5.5 cm). This may represent a hemorrhagic cyst. Additional etiologies including endometrioma also be considered. Follow-up in 6 weeks' time is recommended to assess for interval change. Gynecologic -Abd US: Unremarkable abdominal sonogram. Afebrile Leukocytosis (up to 20)- likely reactive 2ry to above -u/a no pyuria MDD cyclic vomiting H. pylori, recently treated Plan: -Continue empiric ZOsyn #[address] abd/p -f/u cx -Monitor CBC/CMP, temperatures -CT abd/p w/ Thank you for conulting [facility]. Will continue to follow along with you. Discussed with LAWSON. Tracy Silver M.D. Oct 01, 2019 13:32
--- NOTE | 2019-10-01 14:32 | Diagnostic Imaging Report ---
Indication: Abdominal pain Technique: Multiplanar grayscale and duplex Doppler imaging of the abdomen. Comparison: CT abdomen pelvis 06/25/2019 Findings: Liver is normal in size and echogenicity. Hepatic contour appears smooth. No focal hepatic mass lesion appreciated sonographically. Main portal vein is patent with normal direction of flow. No intrahepatic or extra hepatic biliary ductal dilatation identified. The common bile duct measures 2.1 mm in diameter. Gallbladder is normal in appearance. No cholelithiasis identified. No gallbladder wall thickening. Sonographic Joy sign reported as negative. Imaged portions of the pancreas unremarkable in appearance. The kidneys demonstrate normal echogenicity. There is no hydronephrosis or sonographically appreciable renal stone. Spleen is normal in size and appearance. Imaged portions of the abdominal aorta normal in caliber. No ascites demonstrated. IMPRESSION: Unremarkable abdominal sonogram.
[2019-10-01] MEDS ORDERED: Omnipaque-300 100ml vial INJ PRN (15:00)
--- NOTE | 2019-10-01 15:02 | GI Initial Consult Note ---
History of Present Illness General Date patient seen: Oct 01, 2019 Time patient seen: 17:02 Reason for Hospitalization: Abdominal Pain Referring physician: KIN Reason for Consultation: ABDOMINAL PAIN Present Illness HPI Patient is a 29-year-old female presents after increased right-sided abdominal cramping. Patient had prior history of recent antibiotic use due to H. pylori infection. She states she is taking doxycycline twice a day. She had prior history of cyclic vomiting. She reports having currently being on her menses. She reports having severe cramping and pain to the lower abdomen. This was unrelieved by Aleve. She denies any fever. She states that she is also taking Zoloft as well as Seroquel. Patient had acute onset of pain patient stated this had gotten worse today. GI consulted to evaluate abdominal pain. At time of evaluation, patient has c/ o of generalized lower abdominal pain. Patient denies any vomiting, stated she had a history of cyclic vomiting syndrome but has stopped using marijuana for approximately one month. The patient also reported that she is currently on her last week of antibiotics for her H. Pylori. The patient denies any constipation or diarrhea. She has history of endoscopy where she was first diagnosed with H. Pylori. Abdominal US showed persistent complex left adnexal mass, increased in size from the prior exam (previously measuring 3.6 cm and currently measuring 5.5 cm). This may represent a hemorrhagic cyst. Home Meds Active Scripts Acetaminophen With Codeine (T#3) (TYLENOL #3 TAB*) Y Tab, 1 TAB ORAL Q4H PRN, # 10 TAB Prov:Mireya William MD 06/29/19 Doxycycline Hyclate (DOXYCYCLINE HYCLATE) 100 Mg Capsule, 100 MG ORAL EVERY 12 HOURS for 10 Days, CAP Prov:Mireya William MD 06/29/19 Reported Medications Doxycycline Hyclate (DOXYCYCLINE HYCLATE) 20 Mg Tablet, PO for h-pylori, TAB 10/01/19 Quetiapine Fumarate (SEROQUEL) 50 Mg Tablet, ORAL QHS, #15 TAB 0 Refills 10/01/19 Fluoxetine Hcl* (PROZAC*) 10 Mg Capsule, ORAL DAILY, CAP 10/01/19 Fluoxetine Hcl* (FLUOXETINE HCL*) 20 Mg Tablet, 60 MG ORAL DAILY, TAB 06/27/19 Quetiapine Fumarate* (SEROQUEL*) 25 Mg Tablet, 25 MG ORAL DAILY, TAB 03/19/19 Med list reviewed/reconciled: Yes Allergies: Coded Allergies: No Known Allergies (Unverified , 06/25/19) Patient History History Provided By: Patient, Medical Record PMH Narrative Past Medical History: see triage record Now: No Reviewed Nursing Documentation: PMH: Agreed; PSxH: Agreed Nursing Documentation-PMH Past Medical History: No History, Except For Hx Cardiac Problems: No Hx Cancer: No Hx Gastrointestinal Problems: Yes - H-PYLORI History Of Psychiatric Problem: Yes Hx Neurological Problems: No Social History: Reports: smoking, drug use Review of Systems All Other Systems: negative except mentioned in HPI Physical Exam Vital Signs Date Time Temp Pulse Resp B/P (MAP) Pulse Ox O2 Delivery O2 Flow Rate FiO2 10/01/19 04:35 98.6 88 18 104/58 (73) 98 Room Air Sp02 EP Interpretation: reviewed, normal Labs Laboratory Tests Test 10/01/19 04:40 10/01/19 05:50 White Blood Count 20.6 K/UL (4.8-10.8) H Red Blood Count 4.43 M/UL (4.20-5.40) Hemoglobin 12.9 G/DL (12.0-16.0) Hematocrit 39.3 % (37.0-47.0) Mean Corpuscular Volume 89 FL (80-99) Mean Corpuscular Hemoglobin 29.2 PG (27.0-31.0) Mean Corpuscular Hemoglobin Concent 32.8 G/DL (32.0-36.0) Red Cell Distribution Width 11.7 % (11.6-14.8) Platelet Count 276 K/UL (150-450) Mean Platelet Volume 6.6 FL (6.5-10.1) Neutrophils (%) (Auto) % (45.0-75.0) Lymphocytes (%) (Auto) % (20.0-45.0) Monocytes (%) (Auto) % (1.0-10.0) Eosinophils (%) (Auto) % (0.0-3.0) Basophils (%) (Auto) % (0.0-2.0) Differential Total Cells Counted 100 Neutrophils % (Manual) 82 % (45-75) H Lymphocytes % (Manual) 11 % (20-45) L Monocytes % (Manual) 7 % (1-10) Eosinophils % (Manual) 0 % (0-3) Basophils % (Manual) 0 % (0-2) Band Neutrophils 0 % (0-8) Platelet Estimate Adequate Platelet Morphology Normal Sodium Level 136 MMOL/L (136-145) Potassium Level 3.7 MMOL/L (3.5-5.1) Chloride Level 102 MMOL/L (98-107) Carbon Dioxide Level 25 MMOL/L (21-32) Anion Gap 9 mmol/L (5-15) Blood Urea Nitrogen 9 mg/dL (7-18) Creatinine 0.8 MG/DL (0.55-1.30) Estimat Glomerular Filtration Rate > 60 mL/min (>60) Glucose Level 117 MG/DL (74-106) H Calcium Level 8.5 MG/DL (8.5-10.1) Total Bilirubin 0.4 MG/DL (0.2-1.0) Aspartate Amino Transf (AST/SGOT) 18 U/L (15-37) Alanine Aminotransferase (ALT/SGPT) 18 U/L (12-78) Alkaline Phosphatase 45 U/L (46-116) L Total Protein 6.9 G/DL (6.4-8.2) Albumin 3.5 G/DL (3.4-5.0) Globulin 3.4 g/dL Albumin/Globulin Ratio 1.0 (1.0-2.7) Lipase 121 U/L (73-393) Urine Color Pale yellow Urine Appearance Clear Urine pH 7 (4.5-8.0) Urine Specific [place] 1.005 (1.005-1.035) Urine Protein Negative (NEGATIVE) Urine Glucose (UA) Negative (NEGATIVE) Urine Ketones Negative (NEGATIVE) Urine Blood 1+ (NEGATIVE) H Urine Nitrite Negative (NEGATIVE) Urine Bilirubin Negative (NEGATIVE) Urine Urobilinogen Normal MG/DL (0.0-1.0) Urine Leukocyte Esterase 1+ (NEGATIVE) H Urine RBC 0-2 /HPF (0 - 2) Urine WBC 0-2 /HPF (0 - 2) Urine Squamous Epithelial Cells Few /LPF (NONE/OCC) Urine Bacteria Few /HPF (NONE) Urine HCG, Qualitative Negative (NEGATIVE) General Appearance: well appearing, no apparent distress, alert Head: normocephalic EENT: PERRL/EOMI, normal ENT inspection Neck: supple Respiratory: normal breath sounds, no respiratory distress Cardiovascular: normal rate Gastrointestinal: normal inspection, non tender, soft, normal bowel sounds, non -distended Rectal: deferred Genitourinary: no CVA tenderness Musculoskeletal: normal inspection, back normal Neurologic: alert, oriented x3, responsive, normal inspection Psychiatric: normal inspection, judgement/insight normal, memory normal Skin: normal inspection, normal color, no rash, warm/dry, palpation normal, well hydrated Lymphatic: normal inspection, no adenopathy Current Medications Current Medications Medications (Trade) Dose Ordered Sig/Memo Route PRN Reason Start Time Stop Time Status Last Admin Dose Admin Acetaminophen (Tylenol) 650 mg Q4H PRN ORAL fever 10/01/19 08:15 10/31/19 08:14 Barium Sulfate (Readi-Cat 2) 450 ml NOW PRN ORAL Radiology Procedure 10/01/19 15:00 10/03/19 14:50 Dextrose (Dextrose 50%) 25 ml Q30M PRN IV Hypoglycemia 10/01/19 08:15 10/31/19 08:14 Dextrose (Dextrose 50%) 50 ml Q30M PRN IV Hypoglycemia 10/01/19 08:15 10/31/19 08:14 Dextrose/Sodium Chloride 1,000 ml @ 75 mls/hr [id number] IV 10/01/19 08:10 10/31/19 08:09 10/01/19 11:53 Diphenhydramine HCl (Benadryl) 25 mg Q6H PRN ORAL Itching/Pruritis 10/01/19 08:15 10/31/19 08:14 Heparin Sodium (Porcine) (Heparin 5000 units/ml) 5,000 units EVERY 12 HOURS SUBQ 10/01/19 11:00 10/31/19 10:59 Iohexol (OMNIPAQUE-300 100ml) 100 ml NOW PRN INJ Radiology Procedure 10/01/19 15:00 10/03/19 14:50 Lorazepam (Ativan 2mg/ml 1ml) 1 mg Q4H PRN IV agitation 10/01/19 08:15 10/08/19 08:14 Metoclopramide HCl (Reglan) 10 mg EVERY 6 HOURS PRN IVP servere nauasea 10/01/19 08:15 10/31/19 08:14 Morphine Sulfate (Morphine Sulfate) 2 mg EVERY 4 HOURS PRN IVP severe Pain (Pain Scale 7-10) 10/01/19 08:15 10/08/19 08:14 10/01/19 11:55 Nitroglycerin (Ntg) 0.4 mg Q5M X 3 DOSES PRN SL Prn Chest Pain 10/01/19 08:15 10/31/19 08:14 Ondansetron HCl (Zofran) 4 mg Q6H PRN IVP Nausea & Vomiting 10/01/19 08:15 10/31/19 08:14 Pantoprazole (Protonix) 40 mg DAILY IV 10/01/19 11:00 10/31/19 10:59 10/01/19 11:53 Piperacillin Sod/ Tazobactam Sod 3.375 gm/Sodium Chloride 110 ml @ 27.5 mls/hr EVERY 8 HOURS IVPB 10/01/19 14:00 10/06/19 13:59 Polyethylene Glycol (Miralax) 17 gm HSPRN PRN ORAL Constipation 10/01/19 08:15 10/31/19 08:14 Promethazine HCl (Phenergan) 25 mg Q6H PRN IM Refractory N/V 10/01/19 08:15 10/06/19 08:14 Temazepam (Restoril) 15 mg HSPRN PRN ORAL Insomnia 10/01/19 08:15 10/08/19 08:14 GI: Plan Problems: (1) Acute abdominal pain (2) Intractable nausea and vomiting (3) Cyclic vomiting syndrome (4) Pelvic inflammatory disease, female Plan abdominal US reviewed: Persistent complex left adnexal mass, increased in size from the prior exam (previously measuring 3.6 cm and currently measuring 5.5 cm) . This may represent a hemorrhagic cyst. 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 Pylori treatment will follow along on a daily basis with additional recommendations Discussed with Dr. Donis. Thank you for this patient referral, we will follow. The patient was seen and examined at bedside and all new and available data was reviewed in the patients chart. I agree with the above findings, impression and plan. (Patient seen earlier today. Signature stamp does not reflect patient encounter time.). - MD Janki [facility] INSURANCE COLLECTOR Oct 01, 2019 15:02
[2019-10-01] MEDS: Piperacillin/Tazobactam 3.375 GM in NS 110 ML IVPB SCH ×2 (15:26→22:00)
[2019-10-01 16:00] VITALS: BP 110/66
--- NOTE | 2019-10-01 16:29 | Consultation ---
Consult Note Consult Note GYNECOLOGY CONSULTATION REPORT CC: Lower abdominal pain HPI: Patient is a 29yo G0 who was admitted with severe lower abdominal pain that became acutely worse yesterday. LMP 09/29/19. Pain initially began as cramping, which was well managed with Aleve, however last night the pain became severe, 07/30, and not relieved with OTC medications. Last intercourse on Saturday. The patient was seen by me in June for a similar issue. At that time, an ovarian cyst was noted. The patient reports following up with another pelvic US 1mo ago in [place] and reports that it was normal. No cyst was seen per patient. The patient is being taken to CT now, thus will complete my evaluation after all pertinent imaging has been obtained. PMHx: Depression/Anxiety, Intractable Nausea/Vomiting (2 episodes over the last few months, requiring hospitalization) PSHx: Rhinoplasty 2y ago Meds: Prozac 60mg, Seroquel 25mg, multiple antibiotics given to her in [place] for H. Pylori and other issues (unclear), meds included Doxycycline Allergies: NKDA OBHx: G0 GYNHx: LMP 09/29/19. Menses qmonth, light flow lasting 3d. Heavier flow today. Hx of Abnl Pap 10y ago s/p colpo/cxbx which were negative per patient. Denies STI. Reports a significant number of new partners this year, current partner at bedside. SocHx: Lives with family. Has had a stressful year. Not currently working. FamHx: Depression on both mother's and father's side Vitals: BP 105/64, P 67, Tlast 98.6, RR 15, O2 100% RA Exam: Gen: NAD HEENT: MMM, OP clear Neck: No obvious thyromegaly CV: No tachycardia Pulm: No increased work of breathing Abd: Soft, with voluntary and involuntary guarding, +rebound Pelvic: Deferred - interview truncated by need for CT scan Ext: No calf TTP Labs: Test 10/01/19 04:40 10/01/19 05:50 White Blood Count 20.6 K/UL (4.8-10.8) Red Blood Count 4.43 M/UL (4.20-5.40) Hemoglobin 12.9 G/DL (12.0-16.0) Hematocrit 39.3 % (37.0-47.0) Mean Corpuscular Volume 89 FL (80-99) Mean Corpuscular Hemoglobin 29.2 PG (27.0-31.0) Mean Corpuscular Hemoglobin Concent 32.8 G/DL (32.0-36.0) Red Cell Distribution Width 11.7 % (11.6-14.8) Platelet Count 276 K/UL (150-450) Mean Platelet Volume 6.6 FL (6.5-10.1) Neutrophils (%) (Auto) % (45.0-75.0) Lymphocytes (%) (Auto) % (20.0-45.0) Monocytes (%) (Auto) % (1.0-10.0) Eosinophils (%) (Auto) % (0.0-3.0) Basophils (%) (Auto) % (0.0-2.0) Differential Total Cells Counted 100 Neutrophils % (Manual) 82 % (45-75) Lymphocytes % (Manual) 11 % (20-45) Monocytes % (Manual) 7 % (1-10) Eosinophils % (Manual) 0 % (0-3) Basophils % (Manual) 0 % (0-2) Band Neutrophils 0 % (0-8) Platelet Estimate Adequate Platelet Morphology Normal Sodium Level 136 MMOL/L (136-145) Potassium Level 3.7 MMOL/L (3.5-5.1) Chloride Level 102 MMOL/L (98-107) Carbon Dioxide Level 25 MMOL/L (21-32) Anion Gap 9 mmol/L (5-15) Blood Urea Nitrogen 9 mg/dL (7-18) Creatinine 0.8 MG/DL (0.55-1.30) Estimat Glomerular Filtration Rate > 60 mL/min (>60) Glucose Level 117 MG/DL (74-106) Calcium Level 8.5 MG/DL (8.5-10.1) Total Bilirubin 0.4 MG/DL (0.2-1.0) Aspartate Amino Transf (AST/SGOT) 18 U/L (15-37) Alanine Aminotransferase (ALT/SGPT) 18 U/L (12-78) Alkaline Phosphatase 45 U/L (46-116) Total Protein 6.9 G/DL (6.4-8.2) Albumin 3.5 G/DL (3.4-5.0) Globulin 3.4 g/dL Albumin/Globulin Ratio 1.0 (1.0-2.7) Lipase 121 U/L (73-393) Urine Color Pale yellow Urine Appearance Clear Urine pH 7 (4.5-8.0) Urine Specific [place] 1.005 (1.005-1.035) Urine Protein Negative (NEGATIVE) Urine Glucose (UA) Negative (NEGATIVE) Urine Ketones Negative (NEGATIVE) Urine Blood 1+ (NEGATIVE) Urine Nitrite Negative (NEGATIVE) Urine Bilirubin Negative (NEGATIVE) Urine Urobilinogen Normal MG/DL (0.0-1.0) Urine Leukocyte Esterase 1+ (NEGATIVE) Urine RBC 0-2 /HPF (0 - 2) Urine WBC 0-2 /HPF (0 - 2) Urine Squamous Epithelial Cells Few /LPF (NONE/OCC) Urine Bacteria Few /HPF (NONE) Urine HCG, Qualitative Negative (NEGATIVE) Imaging: Abdominal US: IMPRESSION: Unremarkable abdominal sonogram Pelvic US: Findings: Imaged portions of the urinary bladder are unremarkable in appearance. Uterus is unremarkable in appearance. Endometrium measures 6.5 mm in thickness, within normal limits for the reproductive age female. Right ovary is normal in appearance. It measures 3.1 x 2.2 x 2.8 cm/9.6 mL. Color and Doppler flow to the right ovary is documented. There is a large left adnexal lesion contains lacy internal echoes. This lesion measures 5.5 x 2.6 cm. Color and Doppler flow in the left ovary is demonstrated. No free pelvic fluid is visualized. Impression: Persistent complex left adnexal mass, increased in size from the prior exam (previously measuring 3.6 cm and currently measuring 5.5 cm). This may represent a hemorrhagic cyst. Additional etiologies including endometrioma also be considered. Follow-up in 6 weeks' time is recommended to assess for interval change. Gynecologic follow-up recommended. * Color and Doppler flow visualized in the bilateral ovaries. Assessment/Plan 29yo G0 with severe lower abdominal pain, concern for ruptured ovarian hemorrhagic cyst - CT to be done now, to r/o appendicitis or other etiology - Patient in severe pain with ambulation, and exhibits rebound on exam, however is non-toxic appearing with no fever - Leukocytosis noted, and H/H wnl, however given her exam findings recommend stat CBC to assess H/H and WBC trend - Ruptured cyst can often present with leukocytosis, but need to rule out other infectious etiologies - continue empiric antibiotics to cover PID and appendicitis, ID recs appreciated - Will complete my evaluation of the patient tomorrow AM once imaging and labs completed - Will defer any surgical intervention until all pertinent imaging and blood tests completed given the patient is non-toxic in appearance and if this is a hemorrhagic cyst, could well be managed conservatively Helen Tim M.D. Oct 01, 2019 16:29
[2019-10-01 17:47] LABS: BASOPHILS % (AUTO) 0.6 % (0.0-2.0); EOSINOPHILS % (AUTO) 0.9 % (0.0-3.0); HEMATOCRIT 34.8 % (37.0-47.0); HEMOGLOBIN 12.2 G/DL (12.0-16.0); LYMPHOCYTES % (AUTO) 9.7 % (20.0-45.0); MEAN CORPUSCULAR VOLUME 86 FL (80-99); MONOCYTES % (AUTO) 6.9 % (1.0-10.0); NEUTROPHILS % (AUTO) 81.9 % (45.0-75.0); PLATELET COUNT 209 K/UL (150-450); RED BLOOD COUNT 4.05 M/UL (4.20-5.40); RED CELL DISTRIBUTION WIDTH 10.7 % (11.6-14.8); WHITE BLOOD COUNT 11.6 K/UL (4.8-10.8)
[2019-10-01] MEDS ORDERED: Docusate 100mg cap ORAL SCH (18:00)
--- NOTE | 2019-10-01 18:23 | History & Physical ---
History and Physical History & Physicial Dictated for Int Med-Dr Yoder no. [id number]. Az Pearson MD Oct 01, 2019 18:23
--- NOTE | 2019-10-01 18:30 | NUR ---
NURSE NOTES: I received order from Md Silver to advance patient's diet to full liquid diet; Order carried out as order given; I called kitchen and ordered tray. Waiting for tray.
--- NOTE | 2019-10-01 19:28 | NUR ---
HAND-OFF: Report given to LAWSON Yuan.
--- NOTE | 2019-10-01 19:30 | NUR ---
NURSE NOTES: Pt. received sitting in bed, AAOx4, on room air and no signs of respiratory distress. Pt. indicates abdominal pain at 6-7/10, will follow up with pain intervention per protocol. Family at bedside, bed is low and locked, side rails are up, and call light is in reach.
--- NOTE | 2019-10-01 19:45 | NUR ---
NURSE NOTES: Pt is in bed, awake and verbal. No acute distress noted. Pt is not complaining of pain at this moment. Abdominal CT was taken, waiting for results. Pt has vaginal bleeding, ynes pads provided. Drum Straightener saw her during last shift. Pt will be monitored. Pain medication will be given as ordered PRN. Fall precaution in place. Trainee Alpesh Winston RN will be assisting in the care of this patient.
[2019-10-01 20:00] VITALS: BP 109/69
--- NOTE | 2019-10-01 22:15 | NUR ---
NURSE NOTES: Pt. requested continuing home medications 25 mg seroquel HS and 60 mg prozac AM. Message left for Dr. Pearson, awaiting return call.
--- NOTE | 2019-10-01 23:45 | History and Physical Report ---
DATE OF ADMISSION: 10/01/2019 CHIEF COMPLAINT: The patient is a 29-year-old female, who presents with a chief complaint of abdominal pain. HISTORY OF PRESENT ILLNESS: The patient was admitted to [facility] in June of 2019. The patient was diagnosed with left ovarian cyst. The patient was also treated for possible pelvic inflammatory disease. The patient presented to [facility] emergency room complaining of a one-day history of severe abdominal pain. The pain was right-sided. This increased to 10/10 over night. The patient was recently treated for Helicobacter pylori infection. The patient was admitted for right-sided abdominal pain to rule out ovarian cyst versus acute appendicitis. REVIEW OF SYSTEMS: CONSTITUTIONAL: The patient denies weight loss or weight gain. The patient denies fevers or chills. HEENT: The patient denies ear or throat pain. The patient denies headache. CARDIOVASCULAR: The patient denies palpitations or chest pain. CHEST: The patient denies wheeze or shortness of breath. ABDOMINAL: The patient complains of right-sided abdominal pain as above. The patient denies nausea, vomiting, diarrhea, or constipation. GENITOURINARY: The patient denies dysuria or increased frequency of urination. NEUROMUSCULAR: The patient denies seizures or generalized weakness. PAST MEDICAL HISTORY: Significant for, 1. Intractable nausea and vomiting/cyclic nausea and vomiting. 2. Depression/anxiety. 3. History of left ovarian cyst as above. 4. Last menstrual period stated to be September 29, 2019. PAST SURGICAL HISTORY: Significant for rhinoplasty. CURRENT MEDICATIONS: 1. Prozac 60 mg p.o. daily. 2. Seroquel 25 mg p.o. daily. ALLERGIES: No known drug allergies. SOCIAL HISTORY: The patient is single and lives with her family. The patient denies tobacco or alcohol use. PHYSICAL EXAMINATION: VITAL SIGNS: Temperature 98.6, respirations 15, pulse 67, and blood pressure 105/64. GENERAL: The patient is a well-nourished female, in no apparent distress. HEENT: Eyes, pupils are equal and responsive to light and accommodation. Extraocular movements are intact. NECK: Supple without lymphadenopathy. CHEST: Lungs are clear to auscultation bilaterally without wheezes or rales. CARDIOVASCULAR: Regular rhythm and rate. S1 and S2 are normal without murmurs, rubs, or gallops. ABDOMEN: Soft, nontender, and nondistended. Positive bowel sounds. No evidence of hepatosplenomegaly. Currently, no rebound or guarding noted. ABDOMEN: Soft, diffusely tender with decreased bowel sounds. There is tenderness to palpation in the right lower quadrant. There is no rebound or guarding noted. EXTREMITIES: Negative for clubbing, cyanosis, or edema. RECTAL/GENITAL: Not performed. NEUROLOGIC: Cranial nerves II through XII are grossly intact without focal deficits. Motor strength is 5/5 bilaterally. Deep tendon reflexes are 2+ plantar. LABORATORY STUDIES: WBC 20.6, hemoglobin 12.9, hematocrit 39.3, and platelets 276,000. Sodium 136, potassium 3.7, chloride 102, CO2 25, BUN 9, creatinine 0.8, and glucose 117. A transvaginal ultrasound revealed a complex left adrenal mass currently measuring 5.5 cm, which was increased from 3.6 cm from the previous hospitalization. An abdominal ultrasound was reported as within normal limits. ASSESSMENT: This is a 29-year-old female. 1. Left ovarian mass. 2. Right abdominal pain. 3. Leukocytosis. 4. History of Helicobacter pylori. 5. History of cyclic vomiting syndrome. TREATMENT: 1. Left ovarian mass. A Gynecology consultation has been obtained with . We will follow recommendations of Gynecology. 2. Right abdominal pain. A CT scan of the abdomen is pending to rule out acute appendicitis. 3. Leukocytosis. This may be secondary to left ovarian mass versus acute appendicitis. As above, a CT scan of the abdomen is pending. 4. Helicobacter pylori infection/cyclic vomiting syndrome. A Gastroenterology consultation has been obtained with Dr. Thuan Donis. Az Pearson M.D. DR: JORGE A JOB#: [id number] CC:
[2019-10-02] VITALS: BP 109/63
[2019-10-02] MEDS: Morphine Sulfate 2mg/ml Inj(IV/IM USE ONLY) IVP PRN ×5 (00:20→21:02)
--- NOTE | 2019-10-02 02:59 | NUR ---
NURSE NOTES: Pt. assisted to the bathroom four times throughout the night, episodes of sleep in between. Vital signs stable, no signs of SOB. Pt. pain managed with PRN pain medication. IV fluids running per protocol, IV site asymptomatic, patent, and intact. Bed is in the low and locked position, side rails are up, and call light is in reach.
[2019-10-02 04:00] VITALS: BP 108/67
[2019-10-02] MEDS: Piperacillin/Tazobactam 3.375 GM in NS 110 ML IVPB SCH ×2 (06:14→14:35)
--- NOTE | 2019-10-02 07:24 | NUR ---
HAND-OFF: Report given to Jayshree Blanco RN.
--- NOTE | 2019-10-02 07:33 | NUR ---
NURSE NOTES: Patient alert x4; on room air, no sing of distress, no sing of shortness of breath; IV Right AC 18G Zosyn running; patient complains of abdominal pain, will give pain medication as schedule; side rails up x2, breaks engaged, bed at lowest position; call light within reach; will keep monitoring.
[2019-10-02 07:35] LABS: BASOPHILS % (AUTO) 0.4 % (0.0-2.0); EOSINOPHILS % (AUTO) 1.5 % (0.0-3.0); HEMATOCRIT 34.7 % (37.0-47.0); HEMOGLOBIN 11.4 G/DL (12.0-16.0); LYMPHOCYTES % (AUTO) 13.6 % (20.0-45.0); MEAN CORPUSCULAR VOLUME 90 FL (80-99); MONOCYTES % (AUTO) 9.6 % (1.0-10.0); PLATELET COUNT 191 K/UL (150-450); RED BLOOD COUNT 3.85 M/UL (4.20-5.40); RED CELL DISTRIBUTION WIDTH 11.9 % (11.6-14.8); WHITE BLOOD COUNT 8.2 K/UL (4.8-10.8)
--- NOTE | 2019-10-02 07:35 | General Progress Note ---
Assessment/Plan Assessment/Plan: GI: Plan Problems: (1) Acute abdominal pain (2) Intractable nausea and vomiting (3) Cyclic vomiting syndrome (4) Pelvic inflammatory disease, female Plan abdominal US reviewed: Persistent complex left adnexal mass, increased in size from the prior exam (previously measuring 3.6 cm and currently measuring 5.5 cm) . This may represent a hemorrhagic cyst. 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 Pylori treatment will follow along on a daily basis with additional recommendations Subjective Allergies: Coded Allergies: No Known Allergies (Unverified , 06/25/19) Objective Last 24 Hour Vital Signs Date Time Temp Pulse Resp B/P (MAP) Pulse Ox O2 Delivery O2 Flow Rate FiO2 10/02/19 04:00 97.1 69 18 108/67 (81) 98 10/02/19 00:00 97.3 73 16 109/63 (78) 98 10/01/19 21:00 Room Air 10/01/19 20:00 97.5 72 18 109/69 (82) 98 10/01/19 18:49 98.6 10/01/19 16:29 98.6 10/01/19 16:00 98.7 82 18 110/66 (81) 99 10/01/19 13:08 Room Air 10/01/19 10:40 98.6 67 15 105/64 100 Room Air 10/01/19 09:54 98.6 67 15 105/64 100 Room Air 10/01/19 09:30 98.6 Intake and Output 10/01/19 10/02/19 19:00 07:00 Intake Total 307.5 ml 637.5 ml Balance 307.5 ml 637.5 ml Intake Oral 200 ml IV Total 307.5 ml 437.5 ml # Voids 3 4 Laboratory Tests 10/01/19 17:25: White Blood Count 11.6H, Red Blood Count 4.05L, Hemoglobin 12.2, Hematocrit 34.8L, Mean Corpuscular Volume 86, Mean Corpuscular Hemoglobin 30.1, Mean Corpuscular Hemoglobin Concent 35.1, Red Cell Distribution Width 10.7L, Platelet Count 209, Mean Platelet Volume 5.3L, Neutrophils (%) (Auto) 81.9H, Lymphocytes (%) (Auto) 9.7L, Monocytes (%) (Auto) 6.9, Eosinophils (%) (Auto) 0.9, Basophils (%) (Auto) 0.6 10/02/19 05:55: White Blood Count [Pending], Red Blood Count [Pending], Hemoglobin [Pending], Hematocrit [Pending], Mean Corpuscular Volume [Pending], Mean Corpuscular Hemoglobin [Pending], Mean Corpuscular Hemoglobin Concent [Pending], Red Cell Distribution Width [Pending], Platelet Count [Pending], Mean Platelet Volume [ Pending], Neutrophils (%) (Auto) [Pending], Lymphocytes (%) (Auto) [Pending], Monocytes (%) (Auto) [Pending], Eosinophils (%) (Auto) [Pending], Basophils (%) (Auto) [Pending], Activated Partial Thromboplast Time [Pending], Sodium Level [ Pending], Potassium Level [Pending], Chloride Level [Pending], Carbon Dioxide Level [Pending], Blood Urea Nitrogen [Pending], Creatinine [Pending], Estimat Glomerular Filtration Rate [Pending], Glucose Level [Pending], Calcium Level [ Pending], Total Bilirubin [Pending], Aspartate Amino Transf (AST/SGOT) [Pending] , Alanine Aminotransferase (ALT/SGPT) [Pending], Alkaline Phosphatase [Pending] , Total Protein [Pending], Albumin [Pending], Globulin [Pending], Amylase Level [Pending], Lipase [Pending] Height (Feet): 5 Height (Inches): 4.00 Weight (Pounds): 110 General Appearance: alert EENT: normal ENT inspection Neck: supple Cardiovascular: normal rate Respiratory/Chest: decreased breath sounds Abdomen: soft, hypoactive bowel sounds, tender Extremities: non-tender Thuan Donis MD Oct 02, 2019 07:35
[2019-10-02 07:58] LABS: ALANINE AMINOTRANSFERASE 18 U/L (12-78); ALBUMIN 2.9 G/DL (3.4-5.0); ALBUMIN/GLOBULIN RATIO 0.9 (1.0-2.7); ALKALINE PHOSPHATASE 46 U/L (46-116); AMYLASE 38 U/L (25-115); ANION GAP 6 mmol/L (5-15); ASPARTATE AMINO TRANSFERASE 15 U/L (15-37); BILIRUBIN,TOTAL 0.3 MG/DL (0.2-1.0); BLOOD UREA NITROGEN 4 mg/dL (7-18); CALCIUM 8.1 MG/DL (8.5-10.1); CARBON DIOXIDE 27 MMOL/L (21-32); CHLORIDE 107 MMOL/L (98-107); CREATININE 0.8 MG/DL (0.55-1.30); SODIUM 140 MMOL/L (136-145)
[2019-10-02 08:00] VITALS: BP 117/75
--- NOTE | 2019-10-02 08:31 | General Progress Note ---
Progress Note Progress Note GYNECOLOGY PROGRESS NOTE Patient somewhat improved from yesterday. Exam better tolerated. Bleeding normal per patient - consistent with her normal menses. CT scan not yet read, will f/u results this afternoon. VS wnl Gen: NAD Abd: Soft, guarding improved from last exam, +rebound but improved and better able to tolerate exam Pelvic Exam: Left adnexal TTP > R adnexal tenderness, moderately tender throughout abdomen Labs Test 10/01/19 04:40 10/01/19 05:50 10/01/19 17:25 10/02/19 05:55 White Blood Count 20.6 K/UL (4.8-10.8) 11.6 K/UL (4.8-10.8) 8.2 K/UL (4.8-10.8) Red Blood Count 4.43 M/UL (4.20-5.40) 4.05 M/UL (4.20-5.40) 3.85 M/UL (4.20-5.40) Hemoglobin 12.9 G/DL (12.0-16.0) 12.2 G/DL (12.0-16.0) 11.4 G/DL (12.0-16.0) Hematocrit 39.3 % (37.0-47.0) 34.8 % (37.0-47.0) 34.7 % (37.0-47.0) Mean Corpuscular Volume 89 FL (80-99) 86 FL (80-99) 90 FL (80-99) Mean Corpuscular Hemoglobin 29.2 PG (27.0-31.0) 30.1 PG (27.0-31.0) 29.7 PG (27.0-31.0) Mean Corpuscular Hemoglobin Concent 32.8 G/DL (32.0-36.0) 35.1 G/DL (32.0-36.0) 33.0 G/DL (32.0-36.0) Red Cell Distribution Width 11.7 % (11.6-14.8) 10.7 % (11.6-14.8) 11.9 % (11.6-14.8) Platelet Count 276 K/UL (150-450) 209 K/UL (150-450) 191 K/UL (150-450) Mean Platelet Volume 6.6 FL (6.5-10.1) 5.3 FL (6.5-10.1) 6.3 FL (6.5-10.1) Neutrophils (%) (Auto) % (45.0-75.0) 81.9 % (45.0-75.0) 75.0 % (45.0-75.0) Lymphocytes (%) (Auto) % (20.0-45.0) 9.7 % (20.0-45.0) 13.6 % (20.0-45.0) Monocytes (%) (Auto) % (1.0-10.0) 6.9 % (1.0-10.0) 9.6 % (1.0-10.0) Eosinophils (%) (Auto) % (0.0-3.0) 0.9 % (0.0-3.0) 1.5 % (0.0-3.0) Basophils (%) (Auto) % (0.0-2.0) 0.6 % (0.0-2.0) 0.4 % (0.0-2.0) Differential Total Cells Counted 100 Neutrophils % (Manual) 82 % (45-75) Lymphocytes % (Manual) 11 % (20-45) Monocytes % (Manual) 7 % (1-10) Eosinophils % (Manual) 0 % (0-3) Basophils % (Manual) 0 % (0-2) Band Neutrophils 0 % (0-8) Platelet Estimate Adequate Platelet Morphology Normal Sodium Level 136 MMOL/L (136-145) 140 MMOL/L (136-145) Potassium Level 3.7 MMOL/L (3.5-5.1) 4.0 MMOL/L (3.5-5.1) Chloride Level 102 MMOL/L (98-107) 107 MMOL/L (98-107) Carbon Dioxide Level 25 MMOL/L (21-32) 27 MMOL/L (21-32) Anion Gap 9 mmol/L (5-15) 6 mmol/L (5-15) Blood Urea Nitrogen 9 mg/dL (7-18) 4 mg/dL (7-18) Creatinine 0.8 MG/DL (0.55-1.30) 0.8 MG/DL (0.55-1.30) Estimat Glomerular Filtration Rate > 60 mL/min (>60) > 60 mL/min (>60) Glucose Level 117 MG/DL (74-106) 94 MG/DL (74-106) Calcium Level 8.5 MG/DL (8.5-10.1) 8.1 MG/DL (8.5-10.1) Total Bilirubin 0.4 MG/DL (0.2-1.0) 0.3 MG/DL (0.2-1.0) Aspartate Amino Transf (AST/SGOT) 18 U/L (15-37) 15 U/L (15-37) Alanine Aminotransferase (ALT/SGPT) 18 U/L (12-78) 18 U/L (12-78) Alkaline Phosphatase 45 U/L (46-116) 46 U/L (46-116) Total Protein 6.9 G/DL (6.4-8.2) 6.3 G/DL (6.4-8.2) Albumin 3.5 G/DL (3.4-5.0) 2.9 G/DL (3.4-5.0) Globulin 3.4 g/dL 3.4 g/dL Albumin/Globulin Ratio 1.0 (1.0-2.7) 0.9 (1.0-2.7) Lipase 121 U/L (73-393) 77 U/L (73-393) Urine Color Pale yellow Urine Appearance Clear Urine pH 7 (4.5-8.0) Urine Specific [place] 1.005 (1.005-1.035) Urine Protein Negative (NEGATIVE) Urine Glucose (UA) Negative (NEGATIVE) Urine Ketones Negative (NEGATIVE) Urine Blood 1+ (NEGATIVE) Urine Nitrite Negative (NEGATIVE) Urine Bilirubin Negative (NEGATIVE) Urine Urobilinogen Normal MG/DL (0.0-1.0) Urine Leukocyte Esterase 1+ (NEGATIVE) Urine RBC 0-2 /HPF (0 - 2) Urine WBC 0-2 /HPF (0 - 2) Urine Squamous Epithelial Cells Few /LPF (NONE/OCC) Urine Bacteria Few /HPF (NONE) Urine HCG, Qualitative Negative (NEGATIVE) Activated Partial Thromboplast Time 30 SEC (23-33) Amylase Level 38 U/L (25-115) 29yo with pelvic pain, exam improving, condition improving, will re-eval in the PM and will f/u CT scan read - Add Toradol for pain control - H/H dropped, leukocytosis resolving, will CTM - Will re-evaluate this afternoon. - Given overall exam findings, no emergent surgery indicated at this time from [employer] standpoint Helen Tim M.D. Oct 02, 2019 08:31
[2019-10-02] MEDS: Pantoprazole Inj IV SCH (08:32)
[2019-10-02] MEDS: Heparin 5000 units/ml inj SUBQ SCH ×2 (08:34→21:00)
--- NOTE | 2019-10-02 08:52 | Diagnostic Imaging Report ---
Clinical Indication: Right lower abdominal pain Technique: Patient given oral contrast. IV administration nonionic contrast. Venous phase spiral acquisition obtained through the abdomen and pelvis. Multiplanar reconstructions were generated. Total dose length product 639 mGycm. CTDIvol(s) 11 mGy. Dose reduction achieved using automated exposure control Comparison: 06/25/2019 CT scan, also pelvic ultrasound of earlier the same day Findings: On the coronal reconstructed images, the appendix appears somewhat prominent in caliber, measuring up to 8 mm in diameter, but this is less striking on the axial and sagittal reconstructions, gas is seen within the appendiceal lumen, and there is no definite periappendiceal inflammation. Distal pelvic small bowel loops are mildly dilated, but the terminal ileum is normal in caliber. Definite transition point not identified, however. Ingested contrast is seen throughout the entirety of the small bowel, reaches the cecum and proximal ascending colon some obstructive pathology is unlikely also, experienced the small bowel is similar to the prior study. There is no small bowel wall thickening. There is a moderate amount of retained stool, particularly proximally. There is no evidence of colonic diverticulosis or diverticulitis. No free or loculated gas or fluid is evident. Previously demonstrated intraperitoneal fluid is no longer evident. The liver again demonstrates a subcentimeter low-attenuation lesion in segment 6 which is too small to characterize. The gallbladder, bile ducts, pancreas, spleen, adrenals, kidneys are all unremarkable. No retroperitoneal or mesenteric mass or adenopathy. Again demonstrated is a left ovarian cyst which currently measures 5.7 cm long axis dimension, previously 4.6 cm. It demonstrates slightly higher than fluid attenuation, consistent with hemorrhagic ovarian cyst described on recent sonogram. The uterus and right ovary are unremarkable. No pelvic adenopathy demonstrated. The included lung bases are clear. The bones are unremarkable Impression: Mildly dilated distal small bowel loops with normal caliber terminal ileum. However, forward progression of contrast into the colon indicates absence of significant obstructive pathology. Findings may just be baseline for this patient given similar to previous study or could indicate dysmotility or ileus. Enteritis less likely given absence of small bowel wall thickening. Complex left ovarian cyst, increased in size since previous exam, also described on recent sonogram. Follow-up recommendations as per that report Stable subcentimeter low-attenuation liver lesion, thought previously to possibly represent a hemangioma Previously demonstrated intraperitoneal fluid is no longer evident The CT scanner at [facility] is accredited by the [employer] and the scans are performed using protocols designed to limit radiation exposure to as low as reasonably achievable to attain images of sufficient resolution adequate for diagnostic evaluation.
[2019-10-02 12:00] VITALS: BP 115/69
[2019-10-02] MEDS: Ketorolac 30mg Inj IV SCH ×2 (12:29→18:39)
--- NOTE | 2019-10-02 12:54 | NUR ---
[employer] OF ESTATE 29 YO FEMALE FROM HOME TO ER CC ABDOMINAL PAIN LOWER AND NAUSEA SI: ABDOMINAL PAIN H/O HEMORRHAGIC CYST T. 98.6 HR 88 RR 18 B/P 104/58 WBC 20.6 TRANSVAGINAL US=Persistent complex left adnexal mass, increased in size from the prior exam (previously measuring 3.6 cm and currently measuring 5.5 cm). This may represent a hemorrhagic cyst. Additional etiologies including endometrioma also be considered IS: IV BOLUS NS X 1.5 LITERS MORPHINE IV ZOFRAN IV ROCEPHIN IV ATIVAN IV DOXYCYCLINE PO PROZAC PO ADMITTED TO MED/SURG MED/SURG STATUS DCP RETURN HOME
[2019-10-02] MEDS: D5 1/2NS 1,000 ML IV SCH (14:36)
[2019-10-02 16:00] VITALS: BP 107/72
--- NOTE | 2019-10-02 16:38 | Infectious Diseases Prog Note ---
Assessment/Plan Assessment/Plan Assessment: Acute R side abd pain- likely from hemorrhagic ovarian cyst (patient currently on menstrual period)- -10/01 CT abd/p: Mildly dilated distal small bowel loops with normal caliber terminal ileum. However, forward progression of contrast into the colon indicates absence of significant obstructive pathology. Findings may just be baseline for this patient given similar to previous study or could indicate dysmotility or ileus. Enteritis less likely given absence of small bowel wall thickening. Complex left ovarian cyst, increased in size since previous exam, also described on recent sonogram. Follow-up recommendations as per that report. Stable subcentimeter low-attenuation liver lesion, thought previously to possibly represent a hemangioma. Previously demonstrated intraperitoneal fluid is no longer evident. Moderate retained stool in the proximal colon, could indicate constipation. Correlate with clinical findings -transvaginal/pelvic US: Persistent complex left adnexal mass, increased in size from the prior exam (previously measuring 3.6 cm and currently measuring 5.5 cm). This may represent a hemorrhagic cyst. Additional etiologies including endometrioma also be considered. Follow-up in 6 weeks' time is recommended to assess for interval change. Gynecologic -Abd US: Unremarkable abdominal sonogram. Afebrile Leukocytosis (up to 20)- resolved- likely reactive 2ry to above -u/a no pyuria MDD cyclic vomiting H. pylori, recently treated Plan: -D.ericka ZOsyn #2 and monitor off abx -10/01 SP Ceftriaxone and Doxycycline x1 -f/u cx -Monitor CBC/CMP, temperatures -Type Caster f/u Thank you for conulting [facility]. Will continue to follow along with you. Discussed with RN. Subjective Allergies: Coded Allergies: No Known Allergies (Unverified , 06/25/19) Subjective afebrile leukocytosis resolved Objective Vital Signs Last 24 Hour Vital Signs Date Time Temp Pulse Resp B/P (MAP) Pulse Ox O2 Delivery O2 Flow Rate FiO2 10/02/19 12:59 99.5 10/02/19 12:00 98.9 70 19 115/69 (84) 100 10/02/19 10:30 99.5 10/02/19 09:04 97.1 10/02/19 09:00 Room Air 10/02/19 08:00 99.5 73 20 117/75 (89) 99 10/02/19 04:00 97.1 69 18 108/67 (81) 98 10/02/19 00:00 97.3 73 16 109/63 (78) 98 10/01/19 21:00 Room Air 10/01/19 20:00 97.5 72 18 109/69 (82) 98 Height (Feet): 5 Height (Inches): 4.00 Weight (Pounds): 110 Objective General Appearance: normal inspection, well appearing, no apparent distress, alert, GCS 15 Head: atraumatic ENT: normal ENT inspection, hearing grossly normal, normal voice Neck: normal inspection, full range of motion, supple, no bony tend Respiratory: normal inspection, lungs clear, normal breath sounds, no respiratory distress, no retraction, no wheezing Cardiovascular #1: regular rate, rhythm, no edema Gastrointestinal: normal inspection, normal bowel sounds, non tender, soft, no guarding, no hernia Genitourinary: no CVA tenderness Musculoskeletal: normal inspection, back normal, normal range of motion Neurologic: alert, motor strength/tone normal, photographer still III-XII nml as tested, oriented x3, sensory intact, responsive, speech normal, normal inspection Laboratory Tests Test 10/01/19 17:25 10/02/19 05:55 White Blood Count 11.6 K/UL (4.8-10.8) H 8.2 K/UL (4.8-10.8) Red Blood Count 4.05 M/UL (4.20-5.40) L 3.85 M/UL (4.20-5.40) L Hemoglobin 12.2 G/DL (12.0-16.0) 11.4 G/DL (12.0-16.0) L Hematocrit 34.8 % (37.0-47.0) L 34.7 % (37.0-47.0) L Mean Corpuscular Volume 86 FL (80-99) 90 FL (80-99) Mean Corpuscular Hemoglobin 30.1 PG (27.0-31.0) 29.7 PG (27.0-31.0) Mean Corpuscular Hemoglobin Concent 35.1 G/DL (32.0-36.0) 33.0 G/DL (32.0-36.0) Red Cell Distribution Width 10.7 % (11.6-14.8) L 11.9 % (11.6-14.8) Platelet Count 209 K/UL (150-450) 191 K/UL (150-450) Mean Platelet Volume 5.3 FL (6.5-10.1) L 6.3 FL (6.5-10.1) L Neutrophils (%) (Auto) 81.9 % (45.0-75.0) H 75.0 % (45.0-75.0) Lymphocytes (%) (Auto) 9.7 % (20.0-45.0) L 13.6 % (20.0-45.0) L Monocytes (%) (Auto) 6.9 % (1.0-10.0) 9.6 % (1.0-10.0) Eosinophils (%) (Auto) 0.9 % (0.0-3.0) 1.5 % (0.0-3.0) Basophils (%) (Auto) 0.6 % (0.0-2.0) 0.4 % (0.0-2.0) Activated Partial Thromboplast Time 30 SEC (23-33) Sodium Level 140 MMOL/L (136-145) Potassium Level 4.0 MMOL/L (3.5-5.1) Chloride Level 107 MMOL/L (98-107) Carbon Dioxide Level 27 MMOL/L (21-32) Anion Gap 6 mmol/L (5-15) Blood Urea Nitrogen 4 mg/dL (7-18) L Creatinine 0.8 MG/DL (0.55-1.30) Estimat Glomerular Filtration Rate > 60 mL/min (>60) Glucose Level 94 MG/DL (74-106) Calcium Level 8.1 MG/DL (8.5-10.1) L Total Bilirubin 0.3 MG/DL (0.2-1.0) Aspartate Amino Transf (AST/SGOT) 15 U/L (15-37) Alanine Aminotransferase (ALT/SGPT) 18 U/L (12-78) Alkaline Phosphatase 46 U/L (46-116) Total Protein 6.3 G/DL (6.4-8.2) L Albumin 2.9 G/DL (3.4-5.0) L Globulin 3.4 g/dL Albumin/Globulin Ratio 0.9 (1.0-2.7) L Amylase Level 38 U/L (25-115) Lipase 77 U/L (73-393) Current Medications Medications (Trade) Dose Ordered Sig/Memo Route PRN Reason Start Time Stop Time Status Last Admin Dose Admin Acetaminophen (Tylenol) 650 mg Q4H PRN ORAL fever 10/01/19 08:15 10/31/19 08:14 10/02/19 10:00 Barium Sulfate (Readi-Cat 2) 450 ml NOW PRN ORAL Radiology Procedure 10/01/19 15:00 10/03/19 14:50 Dextrose (Dextrose 50%) 25 ml Q30M PRN IV Hypoglycemia 10/01/19 08:15 10/31/19 08:14 Dextrose (Dextrose 50%) 50 ml Q30M PRN IV Hypoglycemia 10/01/19 08:15 10/31/19 08:14 Dextrose/Sodium Chloride 1,000 ml @ 75 mls/hr [id number] IV 10/01/19 08:10 10/31/19 08:09 10/02/19 14:36 Diphenhydramine HCl (Benadryl) 25 mg Q6H PRN ORAL Itching/Pruritis 10/01/19 08:15 10/31/19 08:14 Docusate Sodium (Colace) 100 mg THREE TIMES A DAY ORAL 10/02/19 19:00 11/01/19 18:59 Heparin Sodium (Porcine) (Heparin 5000 units/ml) 5,000 units EVERY 12 HOURS SUBQ 10/01/19 11:00 10/31/19 10:59 Iohexol (OMNIPAQUE-300 100ml) 100 ml NOW PRN INJ Radiology Procedure 10/01/19 15:00 10/03/19 14:50 Ketorolac Tromethamine (Toradol 30mg) 30 mg Q6H IV 10/02/19 12:00 10/07/19 11:59 10/02/19 12:29 Lorazepam (Ativan 2mg/ml 1ml) 1 mg Q4H PRN IV agitation 10/01/19 08:15 10/08/19 08:14 Metoclopramide HCl (Reglan) 10 mg EVERY 6 HOURS PRN IVP servere nauasea 10/01/19 08:15 10/31/19 08:14 Morphine Sulfate (Morphine Sulfate) 2 mg EVERY 4 HOURS PRN IVP severe Pain (Pain Scale 7-10) 10/01/19 08:15 10/08/19 08:14 10/02/19 08:34 Nitroglycerin (Ntg) 0.4 mg Q5M X 3 DOSES PRN SL Prn Chest Pain 10/01/19 08:15 10/31/19 08:14 Ondansetron HCl (Zofran) 4 mg Q6H PRN IVP Nausea & Vomiting 10/01/19 08:15 10/31/19 08:14 Pantoprazole (Protonix) 40 mg DAILY IV 10/01/19 11:00 10/31/19 10:59 10/02/19 08:32 Piperacillin Sod/ Tazobactam Sod 3.375 gm/Sodium Chloride 110 ml @ 27.5 mls/hr EVERY 8 HOURS IVPB 10/01/19 14:00 10/06/19 13:59 10/02/19 14:35 Polyethylene Glycol (Miralax) 17 gm HSPRN PRN ORAL Constipation 10/01/19 08:15 10/31/19 08:14 Promethazine HCl (Phenergan) 25 mg Q6H PRN IM Refractory N/V 10/01/19 08:15 10/06/19 08:14 Temazepam (Restoril) 15 mg HSPRN PRN ORAL Insomnia 10/01/19 08:15 10/08/19 08:14 10/01/19 21:18 Tracy Silver M.D. Oct 02, 2019 16:38
--- NOTE | 2019-10-02 17:41 | Internal Med Progress Note ---
Subjective Physician Name Judah Yoder Attending Physician Judah Yoder MD Current Medications Medications (Trade) Dose Ordered Sig/Memo Route PRN Reason Start Time Stop Time Status Last Admin Dose Admin Acetaminophen (Tylenol) 650 mg Q4H PRN ORAL fever 10/01/19 08:15 10/31/19 08:14 10/02/19 10:00 Barium Sulfate (Readi-Cat 2) 450 ml NOW PRN ORAL Radiology Procedure 10/01/19 15:00 10/03/19 14:50 Dextrose (Dextrose 50%) 25 ml Q30M PRN IV Hypoglycemia 10/01/19 08:15 10/31/19 08:14 Dextrose (Dextrose 50%) 50 ml Q30M PRN IV Hypoglycemia 10/01/19 08:15 10/31/19 08:14 Dextrose/Sodium Chloride 1,000 ml @ 75 mls/hr [id number] IV 10/01/19 08:10 10/31/19 08:09 10/02/19 14:36 Diphenhydramine HCl (Benadryl) 25 mg Q6H PRN ORAL Itching/Pruritis 10/01/19 08:15 10/31/19 08:14 Docusate Sodium (Colace) 100 mg THREE TIMES A DAY ORAL 10/02/19 19:00 11/01/19 18:59 Heparin Sodium (Porcine) (Heparin 5000 units/ml) 5,000 units EVERY 12 HOURS SUBQ 10/01/19 11:00 10/31/19 10:59 Iohexol (OMNIPAQUE-300 100ml) 100 ml NOW PRN INJ Radiology Procedure 10/01/19 15:00 10/03/19 14:50 Ketorolac Tromethamine (Toradol 30mg) 30 mg Q6H IV 10/02/19 12:00 10/07/19 11:59 10/02/19 12:29 Lorazepam (Ativan 2mg/ml 1ml) 1 mg Q4H PRN IV agitation 10/01/19 08:15 10/08/19 08:14 Metoclopramide HCl (Reglan) 10 mg EVERY 6 HOURS PRN IVP servere nauasea 10/01/19 08:15 10/31/19 08:14 Morphine Sulfate (Morphine Sulfate) 2 mg EVERY 4 HOURS PRN IVP severe Pain (Pain Scale 7-10) 10/01/19 08:15 10/08/19 08:14 10/02/19 16:40 Nitroglycerin (Ntg) 0.4 mg Q5M X 3 DOSES PRN SL Prn Chest Pain 10/01/19 08:15 10/31/19 08:14 Ondansetron HCl (Zofran) 4 mg Q6H PRN IVP Nausea & Vomiting 10/01/19 08:15 10/31/19 08:14 Pantoprazole (Protonix) 40 mg DAILY IV 10/01/19 11:00 10/31/19 10:59 10/02/19 08:32 Polyethylene Glycol (Miralax) 17 gm HSPRN PRN ORAL Constipation 10/01/19 08:15 10/31/19 08:14 Promethazine HCl (Phenergan) 25 mg Q6H PRN IM Refractory N/V 10/01/19 08:15 10/06/19 08:14 Temazepam (Restoril) 15 mg HSPRN PRN ORAL Insomnia 10/01/19 08:15 10/08/19 08:14 10/01/19 21:18 Allergies: Coded Allergies: No Known Allergies (Unverified , 06/25/19) Subjective Awake, alert, responsive, complaining of lower abdominal pain. Objective Last Vital Signs Date Time Temp Pulse Resp B/P (MAP) Pulse Ox O2 Delivery O2 Flow Rate FiO2 10/02/19 17:10 99.5 10/02/19 16:00 61 18 107/72 (84) 97 10/02/19 09:00 Room Air Laboratory Tests Test 10/02/19 05:55 White Blood Count 8.2 K/UL (4.8-10.8) Red Blood Count 3.85 M/UL (4.20-5.40) L Hemoglobin 11.4 G/DL (12.0-16.0) L Hematocrit 34.7 % (37.0-47.0) L Mean Corpuscular Volume 90 FL (80-99) Mean Corpuscular Hemoglobin 29.7 PG (27.0-31.0) Mean Corpuscular Hemoglobin Concent 33.0 G/DL (32.0-36.0) Red Cell Distribution Width 11.9 % (11.6-14.8) Platelet Count 191 K/UL (150-450) Mean Platelet Volume 6.3 FL (6.5-10.1) L Neutrophils (%) (Auto) 75.0 % (45.0-75.0) Lymphocytes (%) (Auto) 13.6 % (20.0-45.0) L Monocytes (%) (Auto) 9.6 % (1.0-10.0) Eosinophils (%) (Auto) 1.5 % (0.0-3.0) Basophils (%) (Auto) 0.4 % (0.0-2.0) Activated Partial Thromboplast Time 30 SEC (23-33) Sodium Level 140 MMOL/L (136-145) Potassium Level 4.0 MMOL/L (3.5-5.1) Chloride Level 107 MMOL/L (98-107) Carbon Dioxide Level 27 MMOL/L (21-32) Anion Gap 6 mmol/L (5-15) Blood Urea Nitrogen 4 mg/dL (7-18) L Creatinine 0.8 MG/DL (0.55-1.30) Estimat Glomerular Filtration Rate > 60 mL/min (>60) Glucose Level 94 MG/DL (74-106) Calcium Level 8.1 MG/DL (8.5-10.1) L Total Bilirubin 0.3 MG/DL (0.2-1.0) Aspartate Amino Transf (AST/SGOT) 15 U/L (15-37) Alanine Aminotransferase (ALT/SGPT) 18 U/L (12-78) Alkaline Phosphatase 46 U/L (46-116) Total Protein 6.3 G/DL (6.4-8.2) L Albumin 2.9 G/DL (3.4-5.0) L Globulin 3.4 g/dL Albumin/Globulin Ratio 0.9 (1.0-2.7) L Amylase Level 38 U/L (25-115) Lipase 77 U/L (73-393) Intake and Output 10/01/19 10/02/19 18:59 06:59 Intake Total 307.5 ml 637.5 ml Balance 307.5 ml 637.5 ml Intake Oral 200 ml IV Total 307.5 ml 437.5 ml # Voids 3 4 Objective General: No acute distress, awake and alert HEENT: NCAT, sclera anicteric, PERRL, EOMI. Neck: Supple, no significant jugular venous distention, Lungs: Good inspiratory effort, clear to auscultation bilaterally, no Wheeze or Rales. Heart: Regular rate and rhythm, normal S1/S2, no murmurs Abdomen: soft, lower quadrants tender, nondistended. Normoactive bowel sounds. / Rectal: Refused and deferred. Extremities: No Cyanosis , clubbing or edema. Neuro: A&O x 3, Able to move all extremities Skin: warm, no rashes or lesions Psych: Normal mood and affect Assessment/Plan Assessment/Plan ASSESSMENT: This is a 29-year-old female. 1. Left ovarian mass. 2. Right abdominal pain. 3. Leukocytosis. 4. History of Helicobacter pylori. 5. History of cyclic vomiting syndrome. 6. Depression and anxiety. TREATMENT: 1. Left ovarian mass. A Gynecology consultation has been obtained with Dr. Fox. We will follow recommendations of Gynecology. 2. Right abdominal pain likely secondary to hemorrhagic cyst. 3. Leukocytosis. This may be secondary to left ovarian mass versus acute appendicitis. As above, a CT scan of the abdomen is pending. 4. Helicobacter pylori infection/cyclic vomiting syndrome. A Gastroenterology consultation has been obtained with Dr. Thuan Donis. We will resume home medication. CODE STATUS: full code. DVT prophylaxis: Judah Al MD Oct 02, 2019 17:41
--- NOTE | 2019-10-02 17:48 | General Progress Note ---
Progress Note Progress Note GYNECOLOGY PROGRESS NOTE S: Patient still with intermittent pain, however her pain is overall improving. Discussed options for management of her cyst. Recommend starting control pills as soon as possible to prevent further cyst formation, given her prior admission and history of cysts. Patient is amenable to this plan. Tolerating diet. Had bowel movement x 2 today. Vitals: Reviewed, WNL Exam: Unchanged from previous. Labs: no additional labs since this AM Imaging: Findings: On the coronal reconstructed images, the appendix appears somewhat prominent in caliber, measuring up to 8 mm in diameter, but this is less striking on the axial and sagittal reconstructions, gas is seen within the appendiceal lumen , and there is no definite periappendiceal inflammation. Distal pelvic small bowel loops are mildly dilated, but the terminal ileum is normal in caliber. Definite transition point not identified, however. Ingested contrast is seen throughout the entirety of the small bowel, reaches the cecum and proximal ascending colon some obstructive pathology is unlikely also, experienced the small bowel is similar to the prior study. There is no small bowel wall thickening. There is a moderate amount of retained stool, particularly proximally. There is no evidence of colonic diverticulosis or diverticulitis. No free or loculated gas or fluid is evident. Previously demonstrated intraperitoneal fluid is no longer evident. The liver again demonstrates a subcentimeter low-attenuation lesion in segment 6 which is too small to characterize. The gallbladder, bile ducts, pancreas, spleen, adrenals, kidneys are all unremarkable. No retroperitoneal or mesenteric mass or adenopathy. Again demonstrated is a left ovarian cyst which currently measures 5.7 cm long axis dimension, previously 4.6 cm. It demonstrates slightly higher than fluid attenuation, consistent with hemorrhagic ovarian cyst described on recent sonogram. The uterus and right ovary are unremarkable. No pelvic adenopathy demonstrated. The included lung bases are clear. The bones are unremarkable Impression: Mildly dilated distal small bowel loops with normal caliber terminal ileum. However, forward progression of contrast into the colon indicates absence of significant obstructive pathology. Findings may just be baseline for this patient given similar to previous study or could indicate dysmotility or ileus. Enteritis less likely given absence of small bowel wall thickening. Complex left ovarian cyst, increased in size since previous exam, also described on recent sonogram. Follow-up recommendations as per that report Stable subcentimeter low-attenuation liver lesion, thought previously to possibly represent a hemangioma Previously demonstrated intraperitoneal fluid is no longer evident A/P: 29yo G0 with left adnexal mass, likely hemorrhagic cyst, condition improving. - No indications for acute surgical intervention at this time - Recommend transition to oral pain medications with goal being discharge home tomorrow - Would recommend Motrin 600mg (if OK with GI), [place] 5/325mg for moderate pain , and [place] 10/325 mg for severe pain - Would administer last dose of Toradol tonight - Recommend Rx for control pills, recommend Norethindrone/Ethinyl Estradiol 11/09 (Blisovi 11/09) - no interactions with Seroquel or Prozac - Patient is cleared for discharge from [facility] [employer] perspective, once her pain is well controlled on PO meds - Recommend follow up with [facility] in 6w for repeat ultrasound Helen Tim M.D. Oct 02, 2019 17:48
--- NOTE | 2019-10-02 18:18 | NUR ---
NURSE NOTES: Patient cleared for discharge and patient wanna go home. I communicated MD Yoder if Md can clear patient for discharge and the recommendations from OBGY to change patient's IV pain medications to PO. Waiting for order.
[2019-10-02] MEDS: Docusate 100mg cap ORAL SCH (18:37)
--- NOTE | 2019-10-02 19:27 | NUR ---
Nurses notes Received report form Johnathan PATHAK. Pt awake alert x4. lying in bed no c/o pain at this time. able to make needs known. Pt on RA no acute distress noted. IV to RAC running NS@ 75ml/hr intact and patent. Pt bed in lowest position call light in reach instructed pt to call if assistance needed. will continue to monitor patient throughout shift
--- NOTE | 2019-10-02 19:37 | NUR ---
HAND-OFF: Report given to LAWSON Traore.
[2019-10-02 20:00] VITALS: BP 116/80
[2019-10-03] VITALS: BP 126/64
[2019-10-03] MEDS: Ketorolac 30mg Inj IV SCH ×4 (00:03→17:50)
[2019-10-03] MEDS: D5 1/2NS 1,000 ML IV SCH ×2 (00:07→09:19)
[2019-10-03 04:00] VITALS: BP 120/60
--- NOTE | 2019-10-03 06:50 | General Progress Note ---
Assessment/Plan Assessment/Plan: GI: Plan Problems: (1) Acute abdominal pain (2) Intractable nausea and vomiting (3) Cyclic vomiting syndrome (4) Pelvic inflammatory disease, female Plan abdominal US reviewed: Persistent complex left adnexal mass, increased in size from the prior exam (previously measuring 3.6 cm and currently measuring 5.5 cm) . This may represent a hemorrhagic cyst. 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 Pylori treatment will follow along on a daily basis with additional recommendations Subjective Allergies: Coded Allergies: No Known Allergies (Unverified , 06/25/19) Objective Last 24 Hour Vital Signs Date Time Temp Pulse Resp B/P (MAP) Pulse Ox O2 Delivery O2 Flow Rate FiO2 10/03/19 04:00 97.6 20 120/60 (80) 98 10/03/19 00:00 97.8 18 126/64 (84) 99 10/02/19 21:00 Room Air 10/02/19 20:00 98.4 61 18 116/80 (92) 98 10/02/19 19:09 97.0 10/02/19 17:10 99.5 10/02/19 16:00 98.0 61 18 107/72 (84) 97 10/02/19 12:00 98.9 70 19 115/69 (84) 100 10/02/19 10:30 99.5 10/02/19 09:00 Room Air 10/02/19 08:00 99.5 73 20 117/75 (89) 99 Intake and Output 10/02/19 10/03/19 19:00 07:00 Intake Total 1260.0 ml 350 ml Balance 1260.0 ml 350 ml Intake Oral 700 ml 200 ml IV Total 560.0 ml 150 ml # Voids 5 3 Height (Feet): 5 Height (Inches): 4.00 Weight (Pounds): 110 Neck: supple Cardiovascular: normal rate Abdomen: tender Thuan Donis MD Oct 03, 2019 06:50
[2019-10-03 08:00] VITALS: BP 109/69
[2019-10-03] MEDS: Heparin 5000 units/ml inj SUBQ SCH (09:00)
[2019-10-03] MEDS: Morphine Sulfate 2mg/ml Inj(IV/IM USE ONLY) IVP PRN ×3 (09:11→17:06)
[2019-10-03] MEDS: Docusate 100mg cap ORAL SCH ×3 (09:13→17:08)
[2019-10-03] MEDS: Pantoprazole Inj IV SCH (09:13)
--- NOTE | 2019-10-03 11:23 | NUR ---
NURSE NOTES: PT AXOX4, CALM, RESTING IN BED. PT COMPLAINED OF ABDOMINAL PAIN, 05/30. PT WAS GIVEN PRN MORPHINE 2MG ORDERED FOR SEVERE PAIN. IN NO APPARENT DISTRESS AT THIS TIME. PT MADE AWARE OF DISCHARGE PLANS. RN LEFT MESSAGE FOR DR MIRIAM GARBER TO CLARIFY IF MD WILL WRITE PRESCRIPTION PER HER NOTES OR IF PT IS TO GET PRESCRIPTIONS FROM OUTPATIENT GYNECOLOGY. WILL CONTINUE TO MONITOR.
--- NOTE | 2019-10-03 11:38 | NUR ---
NURSE NOTES: RN SPOKE TO MAXIMINO LUIS WHO STATED HE WILL BE CALLING IN PRESCRIPTION TO HER PHARMACY. RN GAVE DR LUIS PT'S PHARMACY INFORMATION: [facility] . PT MADE AWARE DR LUIS WILL BE CALLING IN THE PRESCRIPTIONS. PT STATES HER RIDE WILL BE ABLE TO PICK HER UP IN THE EVENING.
[2019-10-03 12:00] VITALS: BP 101/66
--- NOTE | 2019-10-03 15:00 | Internal Med Progress Note ---
Subjective Date of Service: Oct 03, 2019 Physician Name Az Pearson Attending Physician Judah Yoder MD Current Medications Medications (Trade) Dose Ordered Sig/Memo Route PRN Reason Start Time Stop Time Status Last Admin Dose Admin Acetaminophen (Tylenol) 650 mg Q4H PRN ORAL fever 10/01/19 08:15 10/31/19 08:14 10/02/19 10:00 Dextrose (Dextrose 50%) 25 ml Q30M PRN IV Hypoglycemia 10/01/19 08:15 10/31/19 08:14 Dextrose (Dextrose 50%) 50 ml Q30M PRN IV Hypoglycemia 10/01/19 08:15 10/31/19 08:14 Dextrose/Sodium Chloride 1,000 ml @ 75 mls/hr [id number] IV 10/01/19 08:10 10/31/19 08:09 10/03/19 09:19 Diphenhydramine HCl (Benadryl) 25 mg Q6H PRN ORAL Itching/Pruritis 10/01/19 08:15 10/31/19 08:14 Docusate Sodium (Colace) 100 mg THREE TIMES A DAY ORAL 10/02/19 19:00 11/01/19 18:59 10/03/19 12:15 Fluoxetine HCl (PROzac) 60 mg DAILY ORAL 10/03/19 09:00 11/02/19 08:59 10/03/19 09:11 Fluoxetine HCl (PROzac) 60 mg ONCE ORAL 10/02/19 18:30 11/01/19 18:29 10/02/19 18:37 Heparin Sodium (Porcine) (Heparin 5000 units/ml) 5,000 units EVERY 12 HOURS SUBQ 10/01/19 11:00 10/31/19 10:59 Ketorolac Tromethamine (Toradol 30mg) 30 mg Q6H IV 10/02/19 12:00 10/07/19 11:59 10/03/19 12:15 Lorazepam (Ativan 2mg/ml 1ml) 1 mg Q4H PRN IV agitation 10/01/19 08:15 10/08/19 08:14 Metoclopramide HCl (Reglan) 10 mg EVERY 6 HOURS PRN IVP servere nauasea 10/01/19 08:15 10/31/19 08:14 Morphine Sulfate (Morphine Sulfate) 2 mg EVERY 4 HOURS PRN IVP severe Pain (Pain Scale 7-10) 10/01/19 08:15 10/08/19 08:14 10/03/19 13:10 Nitroglycerin (Ntg) 0.4 mg Q5M X 3 DOSES PRN SL Prn Chest Pain 10/01/19 08:15 10/31/19 08:14 Ondansetron HCl (Zofran) 4 mg Q6H PRN IVP Nausea & Vomiting 10/01/19 08:15 10/31/19 08:14 Pantoprazole (Protonix) 40 mg DAILY IV 10/01/19 11:00 10/31/19 10:59 10/03/19 09:13 Polyethylene Glycol (Miralax) 17 gm HSPRN PRN ORAL Constipation 10/01/19 08:15 10/31/19 08:14 Promethazine HCl (Phenergan) 25 mg Q6H PRN IM Refractory N/V 10/01/19 08:15 10/06/19 08:14 Quetiapine Fumarate (SEROqueL) 25 mg QHS ORAL 10/02/19 21:00 11/01/19 20:59 10/02/19 20:55 Temazepam (Restoril) 15 mg HSPRN PRN ORAL Insomnia 10/01/19 08:15 10/08/19 08:14 10/01/19 21:18 Allergies: Coded Allergies: No Known Allergies (Unverified , 06/25/19) ROS Limited/Unobtainable: No Constitutional: Reports: no symptoms HEENT: Reports: no symptoms Cardiovascular: Reports: no symptoms Respiratory: Reports: no symptoms Gastrointestinal/Abdominal: Reports: abdominal pain Genitourinary: Reports: no symptoms Neurologic/Psychiatric: Reports: no symptoms Subjective 29 YO F admitted with abdominal pain. Now left ovarian hemorrhagic cyst. Cover for Int Naldo-Dr Yoder Objective Last Vital Signs Date Time Temp Pulse Resp B/P (MAP) Pulse Ox O2 Delivery O2 Flow Rate FiO2 10/03/19 12:00 97.2 58 18 101/66 (78) 99 10/03/19 09:00 Room Air Intake and Output 10/02/19 10/03/19 19:00 07:00 Intake Total 1260.0 ml 350 ml Balance 1260.0 ml 350 ml Intake Oral 700 ml 200 ml IV Total 560.0 ml 150 ml # Voids 5 3 Objective HYSICAL EXAMINATION: GENERAL: The patient is a well-nourished female, in no apparent distress. HEENT: Eyes, pupils are equal and responsive to light and accommodation. Extraocular movements are intact. NECK: Supple without lymphadenopathy. CHEST: Lungs are clear to auscultation bilaterally without wheezes or rales. CARDIOVASCULAR: Regular rhythm and rate. S1 and S2 are normal without murmurs, rubs, or gallops. ABDOMEN: Soft, nontender, and nondistended. Positive bowel sounds. No evidence of hepatosplenomegaly. Currently, no rebound or guarding noted. ABDOMEN: Soft, diffusely tender with decreased bowel sounds. There is tenderness to palpation in the right lower quadrant. There is no rebound or guarding noted. EXTREMITIES: Negative for clubbing, cyanosis, or edema. RECTAL/GENITAL: Not performed. NEUROLOGIC: Cranial nerves II through XII are grossly intact without focal deficits. Motor strength is 5/5 bilaterally. Deep tendon reflexes are 2+ plantar. Assessment/Plan Assessment/Plan ASSESSMENT: This is a 29-year-old female. 1. Left ovarian mass. 2. Right abdominal pain. 3. Leukocytosis. 4. History of Helicobacter pylori. 5. History of cyclic vomiting syndrome. TREATMENT: 1. Left ovarian hemorrhagic cyst. A Gynecology consultation has been obtained with Dr. Helen Tim. We will follow recommendations of Gynecology. 2. Right abdominal pain. A CT=complex left ovarian cyst 3. Leukocytosis. Resolved-See ID consult=Dr Silver 4. Helicobacter pylori infection/cyclic vomiting syndrome. A Gastroenterology consultation has been obtained with Dr. Thuan Donis. Az Pearson MD Oct 03, 2019 15:00
[2019-10-03 16:00] VITALS: BP 101/62
--- NOTE | 2019-10-03 16:13 | NUR ---
CASE MANAGEMENT: REVIEW 10/03/2019 SI: ABDOMINAL PAIN H/O HEMORRHAGIC CYST T 97.2 HR 58 RR 18 B/P 101/66 SATS 99% ON RA NONE TODAY IS: IVF @ 75 mL/HR TORADOL IV Q6H MED/SURG STATUS DCP RETURN HOME
--- NOTE | 2019-10-03 19:03 | NUR ---
NURSE NOTES: PT WAS EDUCATED ON DISCHARGE PACKET AND DISCHARGE MEDICATIONS. DR GARBER SPOKE TO PT AT BEDSIDE AND WROTE PRESCRIPTION FOR NORCO 5/325MG PRN Q6HR PRN PAIN. PT EDUCATED NOT TO TAKE WITH SEROQUEL DUE TO RESPIRATORY DEPRESSION. PT EDUCATED TO FOLLOW UP WITH GYNECOLOGY OUTPATIENT AND WAS PROVIDED WITH DR GARBER' OFFICE ADDRESS AND PHONE NUMBER. PT VERBALIZED UNDERSTANDING. BELONGINGS CHECKED AT BEDSIDE AND ALL ACCOUNTED. IV ACCESS DISCONTINUED. P'S PARENTS TO TAKE PT VIA PRIVATE VEHICLE. PT WAS DISCHARGED IN STABLE CONDITION.
--- NOTE | 2019-10-04 07:58 | Discharge Summary ---
Discharge Summary Discharge Summary _ DATE OF ADMISSION: 10/01/2019 DATE OF DISCHARGE: 10/03/2019 DISCHARGED BY: Dr. Yoder REASON FOR ADMISSION: 29 years old female presented with acute right-sided abdominal pain. Patient reported recent antibiotic use due to H pylori infection. Patient also reported history of cyclic vomiting. Patient was on her menses at the at the time of presentation. She reported severe cramping and pain in the lower abdomen , unrelieved by nonsteroidal anti-inflammatory medication/Aleve. She denied any fever or chills. Upon evaluation vital signs were stable. Laboratory work-up revealed significant leukocytosis WBC 20.6, stable hemoglobin and hematocrit. Stable electrolytes and renal parameters. Glucose 117. Stable LFT and lipase. Abdominal/ pelvic /transvaginal ultrasound revealed persistent complex left adnexal mass, increased in size from the prior exam (previously measuring 3.6 cm and currently measuring 5.5 cm). This may represent a hemorrhagic cyst. Additional etiologies, including endometrioma also should be considered. Follow-up in 6 weeks' time was recommended to assess for interval change. No evidence of ovarian torsion . Patient subsequently admitted for further management. CONSULTANTS: ID specialist Dr. Silver [employer] GI specialist Dr. Donis [facility] COURSE: Patient admitted and started on IV fluids and empiric antibiotic . [employer], GI specialist and ID specialist were consulted. Patient subsequently undergone abdominal ultrasound , which was unremarkable. CT of the abdomen and pelvis revealed complex left ovarian cyst, increased in size since previous exam, described on recent sonogram. Stable subcentimeter low-attenuation liver lesion , possibly representing hemangioma. Previously demonstrated intraperitoneal fluid was no longer evident. Mildly dilated distal small bowel loops with normal caliber terminal ileum. GI specialist carefully reviewed all imaging. Bowel regimen instituted Patient started on PPI. Outpatient follow-up with her primary GI specialist regarding H. pylori treatment recommended. No plans for GI procedure at this time. Hemoglobin and hematocrit remained stable. [employer] specialist seen and evaluated patient . Per [employer] patient had a left adnexal mass, likely hemorrhagic cyst . Condition was improving. No indication for acute surgical intervention at this time. Pain management was addressed and, as patient improved, analgesics were transitioned to oral upon discharge. [employer] recommended control pills with no interaction with her psychiatric medications. [facility] recommended follow-up with [employer] [employer] in 6 weeks to repeat ultrasound. ID specialist followed-up for initial leukocytosis. Patient was afebrile. Leukocytosis resolved , likely was reactive secondary to hemorrhagic cyst. Empiric Zosyn , that started initially, discontinued. ID specialist recommended to monitor patient off antibiotic. Patient clinically stabilized and was ready for discharge. FINAL DIAGNOSES: Acute abdominal pain Left adnexal mass, likely hemorrhagic cyst Leukocytosis-resolved Cyclic vomiting syndrome Peptic ulcer disease with Helicobacter pylori, recently treated Depression and anxiety DISCHARGE MEDICATIONS: See Medication Reconciliation list. DISCHARGE INSTRUCTIONS: Patient was discharged home. Follow-up with [employer] per insurance for pelvic transvaginal ultrasound in 6 weeks. I have been assigned to dictate discharge summary for this account. I was not involved in the patient's management. Elizabeth Gabriel NP Oct 04, 2019 07:58
--- NOTE | 2019-10-04 11:42 | NUR ---
CASE MANAGEMENT: CM review and clinical information (face sheet/ H&P/ER MD notes/DC summary) faxed to PAULINO/KALI @ [phone].
== END 2019-10-03 19:00 | disposition home or self-care (01) | DRG 532 ==
LOC: EMR 05:18 → EDBEDREQ 10:04 → OBSVTOIN 10:24 → 4E 10:24
DX: N83.202 Unspecified ovarian cyst, left side (principal); F41.8 Other specified anxiety disorders; R10.9 Unspecified abdominal pain; D72.829 Elevated white blood cell count, unspecified; R11.15 Cyclical vomiting syndrome unrelated to migraine; K27.9 Peptic ulcer, site unspecified, unspecified as acute or chronic, without hemorrhage or perforation
CPT/HCPCS: 36415; 74177; 76700; 76830; 76856; 80053; 81003; 81025; 82150; 83690; 85007; 85025; 85730; 96361; 96365; 96375; 99284; J2405; J7030